=== PATIENT | male | born 1940 | race Caucasian/White ===

== ENCOUNTER → 2023-12-09 11:50 | Outpatient (REF) | payer MEDICARE, OTHER, SELFPAY ==
[2023-12-09 12:26] LABS: INR 3.18; PT 32.5 Sec (11.4-14.6)
== END ==
LOC: OLABPV 11:50
PROVIDERS: ATTENDING PHYSICIAN Internal Medicine
DX: Z79.01 Long term (current) use of anticoagulants (principal)
CPT/HCPCS: 36415; 85610

== ENCOUNTER → 2023-12-16 09:25 | Outpatient (REF) | payer MEDICARE, OTHER, SELFPAY ==
[2023-12-16 11:04] LABS: INR 4.27; PT 41.1 Sec (11.4-14.6)
== END ==
LOC: OLABPV 09:25
PROVIDERS: ATTENDING PHYSICIAN Internal Medicine
DX: Z79.01 Long term (current) use of anticoagulants (principal)
CPT/HCPCS: 36415; 85610

== ENCOUNTER → 2023-12-27 11:16 | Outpatient (REF) | payer MEDICARE, OTHER, SELFPAY ==
[2023-12-27 11:33] LABS: PT 31.1 Sec (11.4-14.6)
== END ==
LOC: OLABPV 11:16
PROVIDERS: ATTENDING PHYSICIAN Internal Medicine
DX: D68.61 Antiphospholipid syndrome (principal); I48.91 Unspecified atrial fibrillation
CPT/HCPCS: 36415; 85610

== ENCOUNTER → 2024-01-17 10:54 | Outpatient (REF) | payer MEDICARE, OTHER, SELFPAY ==
[2024-01-17 12:01] LABS: INR 3.36
== END ==
LOC: OLABPV 10:54
PROVIDERS: ATTENDING PHYSICIAN Internal Medicine
DX: D68.61 Antiphospholipid syndrome (principal)
CPT/HCPCS: 36415; 85610

== ENCOUNTER → 2024-01-24 10:23 | Outpatient (REF) | payer MEDICARE, OTHER, SELFPAY ==
[2024-01-24 12:08] LABS: INR 2.51
== END ==
LOC: OLABPV 10:23
PROVIDERS: ATTENDING PHYSICIAN Internal Medicine
DX: Z79.01 Long term (current) use of anticoagulants (principal)
CPT/HCPCS: 36415; 85610

== ENCOUNTER 2024-02-03 12:19 | Inpatient (IN) | payer MEDICARE, OTHER, SELFPAY ==
[2024-01-31 10:46] VITALS: BP 140/75
--- NOTE | 2024-01-31 11:51 | ED.GENMED ---
History of Present Illness
General
Chief Complaint: Rectal Bleeding
Source: patient
Time Seen by Provider: 01/31/24 11:35
Travel History
Have you had any contact with someone who has COVID-19?: No
Do you have any symptoms of coronavirus? Fever > 100 degrees, chills, cough, shortness of breath, sore throat, loss of taste or smell, muscle aches, or headache?: No
History of Present Illness
History of Present Illness:
84-year-old male with past medical history of spinal cord CVA, atrial fibrillation, hypertension, antiphospholipid syndrome presenting to the emergency department for evaluation of rectal bleeding that he states started over the last 2 to 3 days,
worse this morning prompting him to come to the ER for further evaluation. Patient states he is not in any pain and is denying any chest pain, shortness of breath, palpitations, exertional dyspnea although due to his paralysis notes he is not able
to ambulate very well. Last colonoscopy was in 2015 and patient does not believe there is any significant abnormalities on this. Based off chart review patient did have both internal and external hemorrhoids noted. Patient's last INR check was
last on and states this was 2.5. Notes that before that last check it was much elevated at greater than 3. Patient has no other concerns at this time.
Past History
Past History
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
ED Past Surgical History: Cardiac (PTCA with stent) and Urological (Radical prostatectomy)
Social History
Tobacco: Non-smoker
Alcohol: None
Drug: None
Personal:
Living: with family
Employment: Retired
Family History
Family History: Hypertension
Review of Systems
Review of Systems
All Other Systems: ROS reviewed and negative except as documented in HPI and ROS
Phy Exam
Physical Exam
Physical Exam:
GENERAL: Alert , in no apparent distress, smiling and pleasant chest x-ray
EYE: clear conjunctiva b/l
HEAD: NCAT
ENT: o/p clr, mmm.
CARDIAC: Regular rate and rhythm .
LUNGS: Clear breath sounds bilaterally, no acute respiratory distress, no wheezes/rales/rhonchi
ABDOMEN: Soft, without focal tenderness, no r/g, no cvat
Rectal exam: Chaperoned by ED ADRIA [place]: Patient had dark clots around the rectal opening with thrombosed external hemorrhoids. Stool is intermixed light and dark red
NEUROLOGICAL: Alert and oriented
SKIN: Warm and dry, skin intact.
MUSCULOSKELETAL: No edema, well perfused.
PSYCH: Normal and appropriate interaction.
Scores
Heart Failure Risk
Heart Failure Risk Score: Not Applicable
Heart Score for Chest Pain Patients
STEMI patient?: Not applicable
Withdrawal Assessment of Alcohol
Withdrawal Assessment Completed?: Not applicable
Course
Orders/Labs/Results
Orders:
Orders
01/31/24 11:54
Type+Screen Urgent
Complete Blood Count/With Diff Urgent
Comprehensive Metabolic Panel Urgent
PTT Urgent
Prothrombin Time Urgent
Abnormal Lab Results
01/31/24
11:54
RBC 4.28 L 10^6/uL
(4.70-6.10)
Hgb 12.3 L g/dL
(13.0-18.0)
Hct 36.4 L %
(39.0-52.0)
RDW 15.3 H %
(11.5-14.5)
Absolute Lymphs (auto) 0.9 L 10^3/uL
(1.2-3.4)
Lymphocytes % 14.2 L %
(20.5-51.1)
PT 29.3 H Sec
(11.4-14.6)
APTT 38.3 H Sec
(23.4-35.0)
BUN 23 H mg/dl
(9-20)
Glucose 100 H mg/dl
(70-99)
01/31/24 11:54
01/31/24 11:54
Vital Signs
Initial and Last Documented VS:
Initial Vital Signs
Temp Pulse Resp BP Pulse Ox
97.4 F 79 20 140/75 98
01/31/24 10:46 01/31/24 10:46 01/31/24 10:46 01/31/24 10:46 01/31/24 10:46
Last Documented Vital Signs
Temp Pulse Resp BP Pulse Ox
97.4 F 79 24 147/103 99
01/31/24 10:46 01/31/24 12:00 01/31/24 12:00 01/31/24 12:00 01/31/24 11:45
MDM/Problems Addressed
Differential Diagnosis Includes:
Hemorrhoidal bleeding, diverticular bleed, less concern for an upper GI bleed, anemia
MDM/Problems Addressed:
84-year-old male present emergency department for evaluation of 2 to 3 days of rectal bleeding. Symptoms and presentation seems to be most consistent with a lower GI source and possibly even related to hemorrhoidal bleeding. Patient's last
colonoscopy was in 2015 and the only abnormality seen were internal and external nonbleeding hemorrhoids. He is hemodynamically stable and without any other concerns at this time. will check labs and continuously monitor. Will discuss case with GI
given patient's increased risk for anemia and worsening bleeding due to him being anticoagulated on Coumadin for multiple risk factors
Chronic conditions affecting care: Neurological disorder
*Pulse Oximetry
Patient hypoxic: no
*Grounds Caretaker Interpretation
Rate: normal
Rhythm: sinus
*Critical Care Note
Total Time (30-74mins, 75-104mins- exclusive of procedures): Not Applicable
Data Reviewed
Review of Other/Old Records Reveals: Labs, Records and Testing
Source: patient and records
Patient Management
Discussion with other providers: Hospitalist and Roofing Layer
Escalation/DeEscalation of care consider admission/obs:
Patient's labs show a hemoglobin of 12.3 which appears to be right around patient's baseline. Electrolytes are within normal limits and his vitals remained normal. I do have concerns though given patient's age as well as his risk factors including
use of Coumadin with need based off of his medical history including CVA, A-fib and antiphospholipid syndrome. Due to these risk factors I think it would be best for patient to be monitored repeat labs and be seen by GI. I notified GI who will
consult on the patient and hospitalist team accepts for continued evaluation and treatment.
ED Attending Note
-
Portions of this chart may have been created with voice recognition software.� Occasional wrong word or��sound alike� substitutions may have occurred due to the inherent limitations of voice recognition software.
Discharge Plan
Departure
Patient Disposition: Admit
Date of Disposition: 01/31/24
Time of Disposition: 12:35
Presentation/result/management discussed w/ accepting MD/DO: Hospitalist
Discharge Problem:
Acute GI bleeding
Prescriptions:
No Action
aspirin 81 MG tablet,delayed release (DR/EC)
81 mg PO DAILY
atorvastatin 40 MG tablet
40 mg PO HS
therapeutic multivitamin Tablet
1 tab PO DAILY
methenamine hippurate 1 gram Tablet
1 g PO BID
omeprazole 20 mg Capsule,Delayed Release(Dr/Ec)
20 mg PO Q48H@0800
metoprolol succinate 25 mg Tablet Extended Release 24 Hr
25 mg PO DAILY
irbesartan 150 mg Tablet
150 mg PO BID
warfarin 5 mg Tablet
5 mg PO SUMOTUTHFRSA@2200
warfarin 5 mg Tablet
7.5 mg PO WE@2200
Pepcid AC
1 tab PO Q48H@0800
Patient Comments:
01/31/2024, pt. unsure of strength.
Unknown Eye Drops
1 drp RIGHT EYE .TAPER
Patient Comments:
01/31/2024, pt. applies one drop into right eye BID this week; then, starting next week, he will place one drop into right eye daily for a week. Pt. states to get these eye drops from his innersole fitter and instructed to use post-cataract
surgery.
Referrals:
Harsh Becker MD [Family Provider] -
Interventions
Interventions:
*Risk Screen - Suicide Last Done: 01/31/24 10:46
*General Assessment Last Done: 01/31/24 10:46
*Neglect/Abuse Screening Last Done: 01/31/24 10:46
ED- Fall Risk Assessment Last Done: 01/31/24 11:40
CM-Cmidzj-Oobffvuexx Assessment Last Done: 01/31/24 11:40
ED- Cardiac Assessment Last Done: 01/31/24 11:40
ED- Pulmonary Assessment Last Done: 01/31/24 11:40
Discharge Date and Time
Print Language: KYRGYZ
[2024-01-31 12:00] VITALS: BP 147/103
[2024-01-31 12:04] VITALS: BMI 26.2
[2024-01-31 12:04] LABS: % Basophils 0.9 % (0-2); % Eosinophils 1.7 % (0-6); % Immature Granulocytes 0.5 % (0-0.5); % Lymphocytes 14.2 % (20.5-51.1); % Monocytes 9.1 % (1.7-9.3); % Neutrophils 73.6 % (42.2-75.2); Absolute Basophils 0.1 10^3/uL (0-0.2); Absolute Eosinophils 0.1 10^3/uL (0-0.7); Absolute Lymphocytes 0.9 10^3/uL (1.2-3.4); Absolute Monocytes 0.6 10^3/uL (0.1-0.6); Absolute Neutrophils 4.8 10^3/uL (1.4-6.5); Hematocrit 36.4 % (39.0-52.0); Hemoglobin 12.3 g/dL (13.0-18.0); Mean Corp Hgb Conc. 33.8 g/dL (33.0-37.0); Mean Corpuscular Hgb 28.7 pg (27.0-31.0); Mean Platelet Volume 10.4 fL (7.4-10.4); Nucleated Red Blood Cells % 0 % (-); Platelet Count 168 10^3/uL (130-400); Red Blood Cell Count 4.28 10^6/uL (4.70-6.10); Red Cell Dist. Width 15.3 % (11.5-14.5); White Blood Cell Count 6.5 10^3/uL (4.8-10.8)
[2024-01-31 12:14] LABS: INR 2.79; PT 29.3 Sec (11.4-14.6)
[2024-01-31 12:15] LABS: APTT 38.3 Sec (23.4-35.0)
[2024-01-31 12:17] LABS: ALT (SGPT) 33 U/L (0-50); AST (SGOT) 37 U/L (17-59); Alkaline Phosphatase 116 U/L (38-126); Blood Urea Nitrogen 23 mg/dl (9-20); Calcium 9.6 mg/dl (8.4-10.2); Carbon Dioxide 24 mmol/L (22-30); Chloride 106 mmol/L (98-107); Estimated Creatinine Clearance 85 ml/min; Glucose 100 mg/dl (70-99); Potassium 3.9 mmol/L (3.5-5.1); Sodium 138 mmol/L (135-145); Total Bilirubin 0.7 mg/dl (0.2-1.3); Total Protein 6.8 g/dl (6.3-8.2); eGFR > 60.00
--- NOTE | 2024-01-31 12:48 | HPS.HSE ---
Addendum entered and electronically signed by Matt Rodney MD 01/31/24 15:17:
see update note for addendum
Original Note:
Family Physician
-
Family Physician: Harsh Becker
Chief Complaint
-
Rectal bleeding
History of Present Illness
84-year-old male complaining of rectal bleeding over the last 2 to 3 days. He reports the bleeding was worse this a.m. he states he had a hard stool on Tuesday. He does not have any sensation in the rectal area due to prior stroke and normally does
a toileting schedule with alternating digital disimpaction. He is on Coumadin and aspirin with history of A-fib and antiphospholipid antibody. He denies fever, chills, chest pain palpitations, shortness of breath, cough, abdominal pain, nausea,
vomiting, urinary symptoms. In the ER he was noted to have dark clots around rectal opening with thrombosed external hemorrhoids stool intermixed light and dark red. His last colonoscopy was 2015 and negative. He has history of spinal artery
occlusion with CVA and lower extremity paralysis is able to dorsiflex left foot can stand to pivot on both feet with walker to wheelchair, CAD status post PTCA with stent, prostate cancer/radical prostatectomy, HTN, HLD, MD, cataract extraction
right eye 01/12/2024, left eye 12/29/2023
Medical History
Past Medical History
Past Medical History: Reports Other
Additional Past Medical History:
spinal artery occlusion with CVA and lower extremity paralysis is able to dorsiflex left foot can stand to pivot on both feet with walker to wheelchair 12/20/2009
CAD status post PTCA with stent October 2006,
prostate cancer/radical prostatectomy
HTN
HLD,
MD
cataract extraction right eye 01/12/2024, left eye 12/29/2023
Past Surgical History: Reports Other
Additional Past Surgical History:
cataract extraction right eye 01/12/2024, left eye 12/29/2023
Radical prostatectomy secondary to prostate cancer
Social History
Tobacco: Non-smoker
Alcohol: Occasional (3 to 4 glasses of wine a week)
Drug: None
Personal:
Living: With Family ( Carley Alba)
Employment: Retired
Family History
Family History: Other (Mother age 98 old age, father CVA)
Allergies / Home Medications
Allergies reflects when Allergies were last updated in [facility].
Home Medications with original date entered in [facility]
Allergy/Medication List:
Allergies
Allergy/AdvReac Type Severity Reaction Status Date / Time
amoxicillin [From Augmentin] Allergy Rash Verified 01/31/24 10:50
clavulanic acid Allergy Rash Verified 01/31/24 10:50
[From Augmentin]
Sulfa (Sulfonamide Allergy Rash Verified 01/31/24 10:50
Antibiotics)
Home Medications
aspirin 81 mg tablet,delayed release 81 mg PO DAILY Blood Clot Prevention/Tx 09/23/12
atorvastatin 40 mg tablet 40 mg PO HS High Cholesterol 08/20/20
irbesartan 150 mg tablet 150 mg PO BID High Cholesterol 08/26/23
methenamine hippurate 1 gram tablet 1 g PO BID Prevent UTI 08/26/23
metoprolol succinate 25 mg tablet,extended release 24 hr 25 mg PO DAILY Blood Pressure 08/26/23
omeprazole 20 mg capsule,delayed release 20 mg PO Q48H@0800 GERD 08/26/23
therapeutic multivitamin 1 tab PO DAILY Supplement 08/26/23
Pepcid AC 1 tab PO Q48H@0800 01/31/24
Unknown Eye Drops 1 drp RIGHT EYE .TAPER 01/31/24
warfarin 5 mg tablet 5 mg PO SUMOTUTHFRSA@0 01/31/24
warfarin 5 mg tablet 7.5 mg PO WE@219901/31/24
Review of Systems
-
History Source: Patient
A 12 point ROS was completed and negative except as noted: Yes
Constitutional: Denies Fever, Fatigue or Chills
EENT: Denies Sore Throat or Runny Nose
Respiratory: Denies Cough or Trouble Breathing
Cardiac: Denies Chest Pain, Palpitations or Syncope
Abdomen/GI: Reports Bloody Stools; Denies Abdominal Pain, Nausea, Vomiting, Diarrhea, Constipated or Black Stools
: Denies Dysuria, Frequency, Flank Pain, Incontinence or Difficulty Voiding
Musculoskeletal: Reports Edema (+1 pedal bilateral); Denies Joint Pain
Skin: Denies Itching or Rash
Neurological: Reports Other (Chronic lower extremity paralysis from prior spinal stroke, is able to dorsiflex left foot but not right); Denies Dizzy, Headache or Weakness
Endocrine: Reports No Symptoms
Hematologic/Lymphatic: Reports No Symptoms
Psych: Reports Calm
Physical Exam
Vital Signs
Vital Signs
Temp Pulse Resp BP Pulse Ox
97.4 F 79 24 147/103 99
01/31/24 10:46 01/31/24 12:00 01/31/24 12:00 01/31/24 12:00 01/31/24 11:45
Physical Exam
General: No Apparent Distress, Comfortable and Conversant; No Pain, Fever or Chills
HEENT: NormoCephalic, Anicteric, Moist mucous membranes, PERRLA, [place] Conjunctivae and No Ptosis
Respiratory: Clear; No Wheezes, Rales or Rhonchi
Cardiac: S1/S2, Regular Rhythm and Murmur (2/6 systolic); No Rub, Gallop or Peripheral Edema
Breast: Deferred by me
GI: Soft, Non Tender, Non Distended, Normal Bowel Sounds and No Hepatosplenomegaly
Rectal: Other (ER physician rectal eval thrombosed external hemorrhoids, stool with mixed blood)
Genito-urinary: Deferred by me
Musculoskeletal: No Clubbing, No Cyanosis, Edema, Left Lower Extremity (+1 pedal), Edema, Right Lower Extremity (+1 pedal) and Other (Chronic lower extremity paralysis from prior spinal stroke, is able to dorsiflex left foot but not right); No
Edema, Left Upper Extremity or Edema, Right Upper Extremity
Skin: Warm and Dry; No Rash or Jaundice
Neuro: AO x 3, Cranial Nerves Intact and Other (Chronic lower extremity paralysis from prior spinal stroke, is able to dorsiflex left foot but not right); No Slurred Speech, Facial Droop or Tremors
Psych: Calm
Laboratory Results
-
01/31/24 11:54
01/31/24 11:54
Laboratory Results
PT 29.3 Sec (11.4-14.6) H 01/31/24 11:54
INR 2.79 01/31/24 11:54
APTT 38.3 Sec (23.4-35.0) H 01/31/24 11:54
Total Bilirubin 0.7 mg/dl (0.2-1.3) 01/31/24 11:54
AST 37 U/L (17-59) 01/31/24 11:54
ALT 33 U/L (0-50) 01/31/24 11:54
Alkaline Phosphatase 116 U/L (38-126) 01/31/24 11:54
Impression/Plan
-
Impression/plan:
OBS telemetry
#Rectal bleeding on Coumadin/likely secondary to thrombosed external hemorrhoids prior constipation
#No rectal sensation is on toileting schedule and has to digitally disimpact due to history of spinal cord stroke with paralysis
ER exam dark clots rectal opening with thrombosed external hemorrhoids
Hgb 12.3
-Continue aspirin 81 mg daily
-Hold Coumadin until GI eval
-GI to eval
#A-fib paroxysmal Dx 09/05/2023
-Hold Coumadin
-Continue metoprolol succinate 25 mg daily
INR 2.79
-Follows with [facility]
2D echo 08/26/2023: EF 65 to 70%, mild to moderate MR, trace AR, mild TR
#Hx antiphospholipid antibody
-Hold Coumadin due to rectal bleeding until GI eval
-Continue aspirin 81 mg daily
#GERD
-Continue omeprazole 20 mg every 48 H, Pepcid 1 tab p.o. every 48 hours
#HTN�benign
147/103 > 158/83
-Continue irbesartan 150 mg p.o. twice daily, metoprolol succinate 25 mg daily
#Spinal artery occlusion with CVA and lower extremity paralysis Dx 12/20/2009
-is able to dorsiflex left foot can stand to pivot on both feet with walker to wheelchair
#CAD
#PTCA with stent October 2006
Continue statin, BP control
Hold current aspirin due to rectal bleeding
#HLD
Continue atorvastatin 40 mg at bedtime
#Prostate cancer with radical prostatectomy
#Hx UTIs
Continue Hiprex 1 g p.o. twice daily
#cataract extraction right eye 01/12/2024, left eye 12/29/2023
DVT prophylaxis
SCDs
Full code
[2024-01-31 13:00] VITALS: BP 156/97
--- NOTE | 2024-01-31 13:42 | CON.GI ---
Consultation
-
Date/Time Consultation Requested: 01/31/24 12:15 PM
Date/Time Consultation Performed: 01/31/24 1:45 PM
Requesting Provider: Derrell Stokes
Performing Provider: Kelsey Leonardo
Reason for Consultation: Rectal bleleding
Medical History
Chief Complaint / HPI
Chief Complaint: Rectal bleeding
History of Present Illness:
Maurice Monroe is an 84 y.o. gentleman with pmhx spinal artery occlusion and CVA resulting in LE paralysis c/b neurogenic bowel, antiphospholipid syndrome on coumadin, Afib, CAD s/p PTCA w/ stent, prostate ca s/p radical prostatectomy, HTN, HLD,
recent b/l cataract extraction who presents with rectal bleeding over the last 2-3 days. Patient denies constipation at baseline, moves his bowels about 2-3x per day, but does this by digital disimpaction. He denies any stool softeners or laxatives.
He has never had rectal bleeding in the past. Admits to hard stool only on Tuesday, typically normal form/consistency.. Last colonoscopy was in 2016, internal and external hemorrhoids, otherwise normal. Reports stool mixed with dark red blood, notes
it worsened since this morning, which is what prompted him to come in for evaluation. He is currently on coumadin and baby ASA. In ER, TED with thrombosed external hemorrhoid and dark clots in rectal vault. Hemoglobin 12.3, MCV 85, Plt 168, INR 2.7,
Cr.0.7. No iron panel obtained. He denies any regular use of NSAIDs. Denies family history of CRC or advanced polyps. Last dose of coumadin was yesterday evening.
Past Medical History
Past Medical History: Other (As per HPI.)
Past Surgical History: Other (As per HPI.)
Social History
Tobacco: Non-Smoker
Alcohol: Occasional
Drug: None
Personal:
Living: With Family
Employment: Retired
Family History
Family History: Reviewed & Not Pertinent and Other
Allergies / Home Medications
Allergy/AdvReac Type Severity Reaction Status Date / Time
amoxicillin [From Augmentin] Allergy Rash Verified 01/31/24 10:50
clavulanic acid Allergy Rash Verified 01/31/24 10:50
[From Augmentin]
Sulfa (Sulfonamide Allergy Rash Verified 01/31/24 10:50
Antibiotics)
�Medication �Instructions �Recorded
aspirin 81 mg tablet,delayed 81 mg PO DAILY Blood Clot 09/23/12
release Prevention/Tx
atorvastatin 40 mg tablet 40 mg PO HS High Cholesterol 08/20/20
irbesartan 150 mg tablet 150 mg PO BID High Cholesterol 08/26/23
methenamine hippurate 1 gram tablet 1 g PO BID Prevent UTI 08/26/23
metoprolol succinate 25 mg 25 mg PO DAILY Blood Pressure 08/26/23
tablet,extended release 24 hr
omeprazole 20 mg capsule,delayed 20 mg PO Q48H@0800 GERD 08/26/23
release
therapeutic multivitamin 1 tab PO DAILY Supplement 08/26/23
Pepcid AC 1 tab PO Q48H@0800 01/31/24
Unknown Eye Drops 1 drp RIGHT EYE .TAPER 01/31/24
warfarin 5 mg tablet 5 mg PO SUMOTUTHFRSA@0 01/31/24
warfarin 5 mg tablet 7.5 mg PO WE@219901/31/24
Review of Systems
-
History Source: Patient
All other systems: A 12 pt ROS was Negative except as stated above in HPI
Vital Signs
Temp Pulse Resp BP Pulse Ox
97.4 F 93 20 156/97 100
01/31/24 10:46 01/31/24 13:15 01/31/24 13:15 01/31/24 13:00 01/31/24 13:15
Physical Exam
Exam
General: Well Developed, Well Nourished and No Apparent Distress
HEENT: Normocephalic, Anicteric and Atraumatic
Respiratory: Clear and Non Labored Respirations
Cardiac: S1/S2 and Regular Rhythm
GI: Soft, Non Tender, Non Distended and Normal Bowel Sounds
Rectal: Other (Large external hemorrhoids, brown stool mixed with red blood and clots)
Genito-urinary: No Costovertebral Tender
Musculoskeletal: Edema (+lower extremity edema)
Skin: Warm
Neuro: Awake, AO x 3 and Nonfocal/Grossly Intact
Hematologic/Lymphatic: No Lymphadenopathy
Psych: Calm
Results
WBC 6.5 10^3/uL (4.8-10.8) 01/31/24 11:54
Hgb 12.3 g/dL (13.0-18.0) L 01/31/24 11:54
Hct 36.4 % (39.0-52.0) L 01/31/24 11:54
MCV 85.0 fL (80.0-94.0) 01/31/24 11:54
Plt Count 168 10^3/uL (130-400) 01/31/24 11:54
Absolute Neuts (auto) 4.8 10^3/uL (1.4-6.5) 01/31/24 11:54
PT 29.3 Sec (11.4-14.6) H 01/31/24 11:54
INR 2.79 01/31/24 11:54
APTT 38.3 Sec (23.4-35.0) H 01/31/24 11:54
Sodium 138 mmol/L (135-145) 01/31/24 11:54
Potassium 3.9 mmol/L (3.5-5.1) 01/31/24 11:54
Chloride 106 mmol/L (98-107) 01/31/24 11:54
Carbon Dioxide 24 mmol/L (22-30) 01/31/24 11:54
BUN 23 mg/dl (9-20) H 01/31/24 11:54
Creatinine 0.7 mg/dL (0.7-1.3) 01/31/24 11:54
Calcium 9.6 mg/dl (8.4-10.2) 01/31/24 11:54
Total Bilirubin 0.7 mg/dl (0.2-1.3) 01/31/24 11:54
AST 37 U/L (17-59) 01/31/24 11:54
ALT 33 U/L (0-50) 01/31/24 11:54
Alkaline Phosphatase 116 U/L (38-126) 01/31/24 11:54
Diagnostic Image Results:
Prior GI Procedures:
EGD:
Colonoscopy:
Assessment / Plan
-
Mr. Monroe is an 84 y.o. 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
cataract extraction who presents with rectal bleeding. His hemoglobin is at his baseline and he is hemodynamically stable. Rectal exam demonstrates +external hemorrhoids, large amount of brown stool mixed with clots in the rectal vault.I suspect
that his bleeding is 2/2 benign anorectal pathology, such as hemorrhoids vs. stercoral ulcer in setting of constipation vs. radiation proctitis vs. diverticulosis vs. AVMs vs. polyp vs. malignancy vs. less likely ischemic. Despite patient reporting
normal daily BMs, I feel he likely has some degree of overflow and is constipated at baseline. He frequently disimpacts himself, and more than likely, is causing some irritation. His anticoagulation is certainly contributing, though, INR is
therapeutic, he admits to issues with labile INR, noted to be >4.0 in early December.
I would like to monitor him overnight to see what his hemoglobin is in the morning as well as how much blood he passes in the next 24 hours. Recommend giving a dose of miralax tonight. Keep on clear liquids, NPO past midnight. Will examine patient
in AM and if INR <2.0 can proceed with more limited flex sig. If INR still above 2.0, will plan to prep for full colonoscopy on /when INR <2.0. We did discuss that having him f/u as an outpatient would prove difficult due to his limited
mobility.
Data Reviewed
-
Old Records: Reviewed
-
-
Thank you for consultation and allowing me to participate in the patient's care. Please call the education and training manager GI physician during the after hours with any questions or concerns.
--- NOTE | 2024-01-31 15:17 | W.PN.UPDATE ---
Update Note
Progress Note Update
I saw and examined the patient.
The STUDIO MODEL Marci's note was reviewed and I agree with the note.
Comment: 84 y/o M hx of Coumadin therapy for hx of spinal artery occlusion resulting in, antiphospholipid syndrome, AFib presents with rectal bleeding over 2-3 days. He admits to hard stool on Tuesday. At baseline, no constipation and has 2-3
BMs/daily (via digital disimpaction). In ER, hemodynamically stable and Hb stable. Evaluated by GI and plan for clears with NPO p MN for possible GI procedure pending INR. We will hold Coumadin, may need FFP to reverse tomorrow; would hold off
Vitamin K with history.
Physical Exam
General: No Apparent Distress, Comfortable and Conversant; No Pain, Fever or Chills
HEENT: Normocephalic, Anicteric, Moist mucous membranes, PERRLA, [place] Conjunctivae and No Ptosis
Respiratory: Clear; No Wheezes, Rales or Rhonchi
Cardiac: S1/S2, Regular Rhythm and Murmur (2/6 systolic); No Rub, Gallop or Peripheral Edema
Breast: Deferred by me
GI: Soft, Non Tender, Non Distended, Normal Bowel Sounds and No Hepatosplenomegaly
Rectal: Other (ER physician rectal eval thrombosed external hemorrhoids, stool with mixed blood)
Genito-urinary: Deferred by me
Musculoskeletal: No Clubbing, No Cyanosis, Edema, Left Lower Extremity (+1 pedal), Edema, Right Lower Extremity (+1 pedal) and Other (Chronic lower extremity paralysis from prior spinal stroke, is able to dorsiflex left foot but not right); No
Edema, Left Upper Extremity or Edema, Right Upper Extremity
Skin: Warm and Dry; No Rash or Jaundice
Neuro: AO x 3, Cranial Nerves Intact and Other (Chronic lower extremity paralysis from prior spinal stroke, is able to dorsiflex left foot but not right); No Slurred Speech, Facial Droop or Tremors
Psych: Calm
Assessment:
Rectal bleeding, exacerbated by Coumadin
- dark clots and concern for hemorrhoids
- hold Coumadin; f/u INRs
- GI following
- clears; NPO p MN for GI intervention pending INR
- check type/screen
Chronic Anemia
Parox A-fib
- hold Coumadin; f/u INRs
- continue BB
- followed by [facility]
Hx antiphospholipid antibody
- hold Coumadin; f/u INRs
- continue aspirin 81 mg daily
GERD
- continue PPI/H2 blockers
Essential HTN
- continue BB/ARB
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
- is able to dorsiflex left foot can stand to pivot on both feet with walker to wheelchair
CAD
PTCA with stent October 2006
- Continue statin, BP control
- continue ASA
HLD
- continue statin
Prostate cancer with radical prostatectomy
Hx UTIs
- continue Hiprex 1 g p.o. twice daily
cataract extraction right eye 01/12/2024, left eye 12/29/2023
DVT prophylaxis: SCDS
Code: Full
--- NOTE | 2024-01-31 15:30 | W.PN.UPDATE ---
Update Note
Progress Note Update
Billing update
[2024-01-31 16:21] VITALS: BMI 24.8
[2024-01-31 16:42] VITALS: BMI 24.8
--- NOTE | 2024-01-31 17:24 | PTCARENOTE ---
Received patient from ED via stretcher. AAOx3, stood and pivot with assistance x2 to bed. Assessed and oriented to room. residential monitor reading Afib. Call wolfe in close reach.
[2024-01-31 18:26] VITALS: BP 163/108
[2024-01-31 19:10] VITALS: BP 153/103
[2024-01-31] MEDS: NON-FORMULARY ITEM 1 DROP RIGHT EYE (20:43)
[2024-01-31] MEDS: HIPREX 1 GRAM PO (20:44)
[2024-01-31] MEDS: LIPITOR 40 MG PO (20:44)
[2024-01-31] MEDS: AVAPRO 150 MG PO (20:44)
[2024-01-31 23:10] VITALS: BP 167/112
[2024-02-01] VITALS (9 sets, daily range): BP systolic 143–171; BP diastolic 86–115; PULSE 90; O2SAT 95
--- NOTE | 2024-02-01 04:53 | DOWNTIME ---
There was a [employer] Downtime on 02/01/2024 from 0100 to 02/01/2024 at 0439. Downtime documentation of patient's care, including medication administrations, has been reconciled in the electronic record per guidelines. Refer to the
patient's paper chart under the miscellaneous tab to see printed paper medication records and downtime forms.
[2024-02-01 07:57] LABS: % Basophils 0.6 % (0-2); % Eosinophils 2.9 % (0-6); % Immature Granulocytes 0.5 % (0-0.5); % Lymphocytes 20.5 % (20.5-51.1); % Monocytes 12.3 % (1.7-9.3); % Neutrophils 63.2 % (42.2-75.2); Absolute Eosinophils 0.2 10^3/uL (0-0.7); Absolute Lymphocytes 1.3 10^3/uL (1.2-3.4); Absolute Monocytes 0.8 10^3/uL (0.1-0.6); Hematocrit 36.5 % (39.0-52.0); Hemoglobin 12.2 g/dL (13.0-18.0); Mean Corp Hgb Conc. 33.4 g/dL (33.0-37.0); Mean Corpuscular Hgb 28.4 pg (27.0-31.0); Mean Corpuscular Volume 85.1 fL (80.0-94.0); Mean Platelet Volume 10.6 fL (7.4-10.4); Nucleated Red Blood Cells % 0 % (-); Platelet Count 167 10^3/uL (130-400); Red Blood Cell Count 4.29 10^6/uL (4.70-6.10); Red Cell Dist. Width 15.3 % (11.5-14.5); White Blood Cell Count 6.3 10^3/uL (4.8-10.8)
[2024-02-01] MEDS: PEPCID 40 MG PO (08:08)
[2024-02-01] MEDS: PROTONIX 40 MG PO (08:08)
[2024-02-01] MEDS: AVAPRO 150 MG PO ×2 (08:08→20:05)
[2024-02-01] MEDS: HIPREX 1 GRAM PO ×2 (08:08→20:05)
[2024-02-01] MEDS: NON-FORMULARY ITEM 1 DROP RIGHT EYE ×2 (08:09→20:06)
[2024-02-01] MEDS: TOPROL XL 25 MG PO (08:09)
[2024-02-01] MEDS: ASPIR LOW (ENTERIC COATED) 81 MG PO (08:09)
[2024-02-01] MEDS: THERAGRAN 1 TABLET PO (08:09)
[2024-02-01 08:21] LABS: INR 2.35
[2024-02-01 09:16] LABS: Blood Urea Nitrogen 18 mg/dl (9-20); Calcium 9.5 mg/dl (8.4-10.2); Carbon Dioxide 28 mmol/L (22-30); Chloride 105 mmol/L (98-107); Estimated Creatinine Clearance 74 ml/min; Glucose 90 mg/dl (70-99); Potassium 4.6 mmol/L (3.5-5.1); Sodium 137 mmol/L (135-145); eGFR > 60.00
--- NOTE | 2024-02-01 09:38 | W.PN.GI.CBS2 ---
Today's Communication / Plan
-
Plan for Colonoscopy tomorrow.
Assessment / Plan
-
Mr. Monroe is an 84 y.o. 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
cataract extraction who presents with rectal bleeding. His hemoglobin is at his baseline and he is hemodynamically stable. Rectal exam demonstrates +external hemorrhoids, large amount of brown stool mixed with clots in the rectal vault.I suspect
that his bleeding is 2/2 benign anorectal pathology, such as hemorrhoids vs. stercoral ulcer in setting of constipation vs. radiation proctitis vs. diverticulosis vs. AVMs vs. polyp vs. malignancy vs. less likely ischemic. Despite patient reporting
normal daily BMs, I feel he likely has some degree of overflow and is constipated at baseline. He frequently disimpacts himself, and more than likely, is causing some irritation. His anticoagulation is certainly contributing, though, INR is
therapeutic, he admits to issues with labile INR, noted to be >4.0 in early December.
He remains hemodynamically stable, and hemoglobin remains stable as well. INR now 2.35. Given he has not had a fully colonoscopy in 8 years and maroon colored stool, would prefer full colonoscopy for assessment, as opposed to more limited flexible
sigmoidoscopy. Discussed this with patient and he is agreeable to proceed with full colonoscopy tomorrow. Discussed with Dr. Rodney, will advance to clear liquids and place orders for bowel prep.
Continue to hold coumadin, can bridge to Lovenox or heparin gtt, if needed.
Subjective
Subjective
Date of Service: February 01, 2024
Adam was seen today in follow-up, one bloody BM overnight. Otherwise, reports feeling well. His vital signs remain stable. AM hemoglobin 12.2, INR 2.35 today. After discussing with patient, he is agreeable to pursuing full colonoscopy tomorrow.
Objective
Data Reviewed
Laboratory Data:
Laboratory Results
02/01/24 06:52
02/01/24 06:52
Laboratory Results
PT 26.0 Sec (11.4-14.6) H 02/01/24 06:52
INR 2.35 02/01/24 06:52
APTT 38.3 Sec (23.4-35.0) H 01/31/24 11:54
Total Bilirubin 0.7 mg/dl (0.2-1.3) 01/31/24 11:54
AST 37 U/L (17-59) 01/31/24 11:54
ALT 33 U/L (0-50) 01/31/24 11:54
Alkaline Phosphatase 116 U/L (38-126) 01/31/24 11:54
Vital Signs and I&O:
Vital Signs
Temp Pulse Resp BP Pulse Ox
97.9 F 94 18 171/101 98
02/01/24 07:30 02/01/24 08:08 02/01/24 07:30 02/01/24 08:08 02/01/24 07:30
I&O
01/31/24 02/01/24 02/02/24
06:59 06:59 06:59
Intake Total 480 / 480
Output Total 1475 / 1475
Balance -995 / -995
Physical Exam
Physical Exam
HEENT: Anicteric and Moist mucous membranes
Cardiology: Normal Sinus Rhythm, S1 and S2
Pulmonary: Clear
GI: Soft, Non Distended, Non Tender and Normal Bowel Sounds
Extremities: Edema
Neuro: Other (LE paralysis )
--- NOTE | 2024-02-01 11:37 | W.PN.HOSP.TC ---
Today's Communication/Plan
-
hold Coumadin; follow INRs
clears and bowel prep for colonoscopy pending INR; may need FFP pending INR
d/w GI team
Assessment / Plan
Assessment / Plan
Assessment:
Rectal bleeding, exacerbated by Coumadin
- dark clots and concern for hemorrhoids
- hold Coumadin; f/u INRs (today is 2.35)
- type/screen and consented. May need FFP pending AM INR
- GI following
- clears; NPO p MN for Colonoscopy 02/01
Chronic Anemia
- for now stable with lower GI bleed
Parox A-fib
- hold Coumadin; f/u INRs
- continue BB
- followed by [facility] cardiology
Hx antiphospholipid antibody
- hold Coumadin; f/u INRs
- continue aspirin 81 mg daily
GERD
- continue PPI/H2 blockers
Essential HTN
- continue BB/ARB
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
- is able to dorsiflex left foot can stand to pivot on both feet with walker to wheelchair
CAD
PTCA with stent October 2006
- Continue statin, BP control
- continue ASA
HLD
- continue statin
Prostate cancer with radical prostatectomy
Hx UTIs
- continue Hiprex 1 g p.o. twice daily
cataract extraction right eye 01/12/2024, left eye 12/29/2023
DVT prophylaxis: SCDS
Code: Full
Anticipated Discharge: 24 - 48 hours
Subjective/Interval History
-
Date of Service: February 01, 2024
one bloody BM overnight but Hb stable and vitals stable
INR is 2.35 with Coumadin held
he offers no new complaints
agrees with full colonoscopy tomorrow
Objective Data
-
Labs:
Laboratory Results
02/01/24
06:52
WBC 6.3
Hgb 12.2 L
Hct 36.5 L
Plt Count 167
PT 26.0 H
INR 2.35
Sodium 137
Potassium 4.6
Chloride 105
Carbon Dioxide 28
BUN 18
Creatinine 0.8
Glucose 90
Calcium 9.5
Vital Signs:
Vital Signs
Temp Pulse Resp BP Pulse Ox
98.0 F 83 18 143/99 97
02/01/24 11:11 02/01/24 11:11 02/01/24 11:11 02/01/24 11:11 02/01/24 11:11
I&O
01/31/24 02/01/24 02/02/24
06:59 06:59 06:59
Intake Total 480 / 480
Output Total 1475 / 1475
Balance -995 / -995
Physical Exam
-
General: No Apparent Distress
HEENT: Normocephalic and Atraumatic
Respiratory: Clear to Auscultation; Negative Wheezes or Rales
Cardiac: Regular Rhythm and S1/S2
GI: Soft
Genito-urinary: No Costovertebral Tender
Musculoskeletal: No Edema
Neuro: AO x 3
Hematologic / Lymphatic: No Lymphadenopathy
Psych: Calm
Data Reviewed
-
Total Time Spent with Patient (in minutes): 42
Labs: Labs Reviewed by me
--- NOTE | 2024-02-01 16:21 | CM ---
Alert awake oriented patient who lives at [facility] with his w.He is independent in driving and all activities of daily living.He uses walker wheel chair and scooter. He said he can not walk on own. He offered VN
he declined. VEGA letter given explained signed copy on chart.
[facility] hx
Pharmacy [facility]
PCP Dr Becker
PLAN Home no needs
--- NOTE | 2024-02-01 16:30 | PTCARENOTE ---
patient was received in bed reading his magazine - awake, alert and verbally responsive. patient is able to make his needs known and understands when being spoken too. patient did not have any behavioral/verbal indicators of discomfort or pain.
patient was started on his nulytely trevor. patient was provided a bedside commode to use. fluids encouraged throughout this nurse's shift. patient remains continent of bladder with the use of a condom cath. patient remains in bed at this time with
call wolfe, telephone and television remote within reach
[2024-02-01] MEDS: NULYTELY SOLUTION 4 LITERS PO (16:53)
[2024-02-01] MEDS: LIPITOR 40 MG PO (20:05)
[2024-02-02] VITALS (15 sets, daily range): BP systolic 11–176; BP diastolic 83–112
--- NOTE | 2024-02-02 08:05 | W.PN.HOSP.TC ---
Addendum entered and electronically signed by Wyatt Duenas MD 02/02/24 14:15:
Patient denies any further bleeding. No chest pain or shortness of breath. He recognizes me for the last time I saw him last hospital stay
Original Note:
Today's Communication/Plan
-
Colonoscopy today.
Assessment / Plan
Assessment / Plan
Physical exam:
General: Well Developed, Well Nourished and No Apparent Distress
HEENT: Normocephalic, Atraumatic and Moist Mucous Membranes
Respiratory: Clear to Auscultation; Negative Wheezes, Rales or Rhonchi
Cardiac: Regular Rhythm and S1/S2
GI: Soft, Nontender and Nondistended
Musculoskeletal: No Clubbing, No Cyanosis and No Edema
Neuro: Awake, Alert and Oriented
Psych: Calm
Colonoscopy:
Findings:
Normal TI
1x small polyp in cecum, removed with biopsy forceps
1x small polyp in ascending colon, removed with biopsy forceps. 1x hemostatic clip placed
4 mm sessile polyp in rectum, removed via hot snare
7 mm pedunculated polyp w/ stigmata of recent bleeding in the rectum, removed via hot snare
Abnormal mucosa in the rectum, just proximal to the anal verge, biopsied
GI bleeding likely 2/2 large pedunculated polyp in rectum. No evidence of diverticular disease or AVMs.
Assessment:
Rectal bleeding, exacerbated by Coumadin. Etiology as above.
- dark clots and concern for hemorrhoids
- hold Coumadin; f/u INRs (today is 1.72)
- type/screen and consented.
-Status post colonoscopy today as above
-Continue to hold anticoagulation
-Hemoglobin 11.7 today, recheck in a.m.
-GI following
Chronic Anemia
- for now stable with lower GI bleed
Parox A-fib
- hold Coumadin; f/u INRs
- continue BB
- followed by [facility] cardiology
Hx antiphospholipid antibody
- hold Coumadin; f/u INRs
- continue aspirin 81 mg daily
GERD
- continue PPI/H2 blockers
Essential HTN
- continue BB/ARB
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
- is able to dorsiflex left foot can stand to pivot on both feet with walker to wheelchair
CAD
PTCA with stent October 2006
- Continue statin, BP control
- continue ASA
HLD
- continue statin
Prostate cancer with radical prostatectomy
Hx UTIs
- continue Hiprex 1 g p.o. twice daily
cataract extraction right eye 01/12/2024, left eye 12/29/2023
DVT prophylaxis: SCDS
Code: Full
Anticipated Discharge: 24 - 48 hours
Subjective/Interval History
-
Date of Service: February 02, 2024
Objective Data
-
Labs:
Laboratory Results
02/02/24
06:59
WBC Pending
Hgb Pending
Hct Pending
Plt Count Pending
PT Pending
INR Pending
Sodium Pending
Potassium Pending
Chloride Pending
Carbon Dioxide Pending
BUN Pending
Creatinine Pending
Glucose Pending
Calcium Pending
Vital Signs:
Vital Signs
Temp Pulse Resp BP Pulse Ox
98.1 F 94 18 160/94 99
02/02/24 04:20 02/02/24 04:20 02/02/24 04:20 02/02/24 03:54 02/02/24 04:20
I&O
02/01/24 02/02/24 02/03/24
06:59 06:59 06:59
Intake Total 480 / 480 2099 / 2100
Output Total 1475 / 1475 1750 / 1750
Balance -995 / -995 350 / 350
[2024-02-02 08:28] LABS: Hematocrit 35.4 % (39.0-52.0); Hemoglobin 11.7 g/dL (13.0-18.0); Mean Corp Hgb Conc. 33.1 g/dL (33.0-37.0); Mean Corpuscular Hgb 28.5 pg (27.0-31.0); Mean Corpuscular Volume 86.1 fL (80.0-94.0); Mean Platelet Volume 11.2 fL (7.4-10.4); Platelet Count 150 10^3/uL (130-400); Red Blood Cell Count 4.11 10^6/uL (4.70-6.10); Red Cell Dist. Width 15.1 % (11.5-14.5); White Blood Cell Count 5.8 10^3/uL (4.8-10.8)
[2024-02-02 08:32] LABS: INR 1.72; PT 20.3 Sec (11.4-14.6)
[2024-02-02] MEDS: PEPCID 40 MG PO (08:58)
[2024-02-02] MEDS: ASPIR LOW (ENTERIC COATED) 81 MG PO (08:59)
[2024-02-02] MEDS: TOPROL XL 25 MG PO (08:59)
[2024-02-02] MEDS: AVAPRO 150 MG PO ×2 (08:59→20:24)
[2024-02-02] MEDS: NON-FORMULARY ITEM 1 DROP RIGHT EYE (09:00)
[2024-02-02] MEDS: FLUSH (NSS) 1 FLUSH IV (09:01)
[2024-02-02 09:15] LABS: Blood Urea Nitrogen 15 mg/dl (9-20); Calcium 9.2 mg/dl (8.4-10.2); Carbon Dioxide 29 mmol/L (22-30); Chloride 106 mmol/L (98-107); Estimated Creatinine Clearance 74 ml/min; Glucose 89 mg/dl (70-99); Potassium 4.8 mmol/L (3.5-5.1); Sodium 136 mmol/L (135-145); eGFR > 60.00
[2024-02-02] MEDS: APRESOLINE 5 MG IV ×2 (11:50→12:10)
--- NOTE | 2024-02-02 11:58 | SUR.PHASEI ---
BP elevated on 2 readings, DR Hook informed of same, Hydralazine ordered and Given. Thanh hooker RN BSN.
--- NOTE | 2024-02-02 12:55 | PTCARENOTE ---
received post colonoscopy- awake and alert, assisted to bed. reporting no issues. no distress noted. PCT obtained electronic BP 176/106, manual BP obtained 160/94. plan of care on going.
[2024-02-02] MEDS: THERAGRAN 1 TABLET PO (13:36)
[2024-02-02] MEDS: HIPREX 1 GRAM PO ×2 (13:36→20:24)
--- NOTE | 2024-02-02 14:01 | W.PN.UPDATE ---
Update Note
Progress Note Update
s/p Colonoscopy today.
Findings:
Normal TI
1x small polyp in cecum, removed with biopsy forceps
1x small polyp in ascending colon, removed with biopsy forceps. 1x hemostatic clip placed
4 mm sessile polyp in rectum, removed via hot snare
7 mm pedunculated polyp w/ stigmata of recent bleeding in the rectum, removed via hot snare
Abnormal mucosa in the rectum, just proximal to the anal verge, biopsied
GI bleeding likely 2/2 large pedunculated polyp in rectum. No evidence of diverticular disease or AVMs.
Reccs:
-Resume full diet
-- hold AC for at least 6 hours, prefer heparin gtt overnight given multiple interventions today
-If abnormal mucosa in rectum returns as adenomatous tissue, will need EMR with Dr. Alba
--- NOTE | 2024-02-02 17:00 | CM ---
Had colonoscopy today.
Offered Vn he declined need.
Family will drive him home.
PLAN Home no needs
[2024-02-02] MEDS: NON-FORMULARY ITEM RIGHT EYE (20:24)
[2024-02-02] MEDS: LIPITOR 40 MG PO (20:24)
[2024-02-03] VITALS (7 sets, daily range): BP systolic 110–155; BP diastolic 72–101
[2024-02-03] MEDS: APRESOLINE 5 MG IV (05:38)
--- NOTE | 2024-02-03 07:13 | W.PN.HOSP.TC ---
Today's Communication/Plan
-
Start heparin drip. Restart warfarin. Monitor hemoglobin and INR.
Assessment / Plan
Assessment / Plan
Physical exam:
General: Well Developed, Well Nourished and No Apparent Distress
HEENT: Normocephalic, Atraumatic and Moist Mucous Membranes
Respiratory: Clear to Auscultation; Negative Wheezes, Rales or Rhonchi
Cardiac: Irregular rate and rhythm and S1/S2
GI: Soft, Nontender and Nondistended
Musculoskeletal: No Clubbing, No Cyanosis and No Edema
Neuro: Awake, Alert and Oriented. Prior deficits present.
Psych: Calm
Colonoscopy:
Normal TI
1x small polyp in cecum, removed with biopsy forceps
1x small polyp in ascending colon, removed with biopsy forceps. 1x hemostatic clip placed
4 mm sessile polyp in rectum, removed via hot snare
7 mm pedunculated polyp w/ stigmata of recent bleeding in the rectum, removed via hot snare
Abnormal mucosa in the rectum, just proximal to the anal verge, biopsied
GI bleeding likely 2/2 large pedunculated polyp in rectum. No evidence of diverticular disease or AVMs.
Assessment:
Acute lower GI bleed due to pedunculated polyp in the colon:
-Improving
-Status post colonoscopy on 02/01 as above
-Discussed with GI today and will start him on heparin drip to bridge him with Coumadin and GI okay with that. I also discussed with patient the option of starting Coumadin without heparin gtt which I did not favor but it is an option versus
heparin drip bridge and start Coumadin at 7.5 mg today and then we could go back to his regular 5 mg tomorrow depending on INR and he is okay with that approach. We could also use Lovenox for bridging later but hold off today due to recent
bleeding. Patient also wants to have cardiology involved in his care so I consulted cardiology today.
-Hemoglobin 12.1 today and INR is 1.51
-Monitor hemoglobin and INR tomorrow
Chronic Anemia perhaps some element of acute blood loss anemia
-Hemoglobin 12.1 today
-Continue to monitor hemoglobin to ensure stability while restarting anticoagulation and recent GI bleed s/p biopsies.
Parox A-fib
-Restarted Coumadin
- continue BB
-Check twelve-lead EKG today
-Cardiology consulted ([place] texted cardiology today)
Hx antiphospholipid antibody
-Start heparin drip today and restart warfarin today as well. He typically takes 5 mg of warfarin but will do a loading dose of 7.5 mg today.
- continue aspirin 81 mg daily
GERD
- continue PPI/H2 blockers
Essential HTN
- continue BB/ARB
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
- is able to dorsiflex left foot can stand to pivot on both feet with walker to wheelchair
CAD
PTCA with stent October 2006
- Continue statin, BP control
- continue ASA
HLD
- continue statin
Prostate cancer with radical prostatectomy
Hx UTIs
- continue Hiprex 1 g p.o. twice daily
cataract extraction right eye 01/12/2024, left eye 12/29/2023
DVT prophylaxis: SCDS and heparin drip and warfarin
Code: Full
Total time spent on today's encounter was 52 minutes which included time spent in counseling the patient/family regarding diagnosis and treatment plan as listed above, goals of care, and symptom management. Case was discussed with nursing staff,
specialists, and care coordinators/case management. All labs and imaging personally reviewed by me. Remainder the time spent in detailed review of previous records, lab data, imaging, and other medical provider documentation.
Anticipated Discharge: 24 - 48 hours
Subjective/Interval History
-
Date of Service: February 03, 2024
Patient denies any further GI bleeding. Denies abdominal pain nausea or vomiting. Denies chest pain or shortness of breath today. His blood pressure and heart rate has been fluctuating to some degree.
Objective Data
-
Labs:
Laboratory Results
02/03/24
06:19
WBC Pending
Hgb Pending
Hct Pending
Plt Count Pending
PT Pending
INR Pending
Sodium Pending
Potassium Pending
Chloride Pending
Carbon Dioxide Pending
BUN Pending
Creatinine Pending
Glucose Pending
Calcium Pending
Vital Signs:
Vital Signs
Temp Pulse Resp BP Pulse Ox
97.7 F 90 18 155/90 97
02/03/24 03:39 02/03/24 05:40 02/03/24 03:39 02/03/24 05:40 02/03/24 03:39
I&O
02/02/24 02/03/24 02/04/24
06:59 06:59 06:59
Intake Total 2100 / 2100 1760 / 1760
Output Total 1750 / 1750 600 / 600
Balance 350 / 350 1160 / 1160
Review of Systems
-
All other systems: Reviewed and negative
[2024-02-03 07:23] LABS: Hematocrit 35.4 % (39.0-52.0); Hemoglobin 12.1 g/dL (13.0-18.0); Mean Corp Hgb Conc. 34.2 g/dL (33.0-37.0); Mean Corpuscular Hgb 28.7 pg (27.0-31.0); Mean Corpuscular Volume 83.9 fL (80.0-94.0); Mean Platelet Volume 11.1 fL (7.4-10.4); Platelet Count 164 10^3/uL (130-400); Red Blood Cell Count 4.22 10^6/uL (4.70-6.10); Red Cell Dist. Width 15.1 % (11.5-14.5); White Blood Cell Count 6.4 10^3/uL (4.8-10.8)
[2024-02-03 07:46] LABS: INR 1.51
[2024-02-03 07:48] LABS: Blood Urea Nitrogen 19 mg/dl (9-20); Calcium 9.5 mg/dl (8.4-10.2); Carbon Dioxide 23 mmol/L (22-30); Chloride 107 mmol/L (98-107); Estimated Creatinine Clearance 74 ml/min; Glucose 100 mg/dl (70-99); Sodium 137 mmol/L (135-145); eGFR > 60.00
--- NOTE | 2024-02-03 08:29 | W.PN.GI.CBS2 ---
Today's Communication / Plan
-
Pathology from colonoscopy pending. No bleeding overnight, hemoglobin is stable. INR subtherapeutic, plan for heparin gtt bridge to coumadin. GI will sign off.
Assessment / Plan
-
Mr. Monroe is an 84 y.o. 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
cataract extraction admitted with rectal bleeding, now s/p colonoscopy. Several polyps removed, one pedunculated polyp in the rectum with stigmata of recent bleeding felt to be culprit of large-volume hematochezia on presentation, removed with hot
snare polypectomy. Additional findings below. Area of abnormal mucosa proximal to the anal verge was biopsied. He had no recurrence of bleeding overnight, however, given hot snare was used, there is a risk of delayed bleeding that needs to be
monitored, and patient is aware of. Plan to resume anticoagulation, heparin gtt with bridge to coumadin.
Discussed daily bowel regimen with patient-- certainly, he will continue to cause some irritation with such frequent digital disimpactions. Advised to trial metamucil along with a stool softener, such as colace, as he reports having such hard
stools. Outpatient follow-up for ongoing management. I will reach out to him once we have pathology results from his colonsocopy to determine if repeat procedure for EMR with Dr. Alba vs. colorectal surgery evaluation (given proximity to anal verge)
is necessary.
GI will sign off. Please call with questions.
Subjective
Subjective
Date of Service: February 03, 2024
Patient seen and examined at the bedside. No overnight events. Reports feeling well this morning. S/p colonoscopy yesterday, bleeding likely from pedunculated polyp, removed via hot snare. Additional small polyps removed. Area of abnormal mucosa
proximal to the anal verge biopsied, pathology pending.
Objective
Data Reviewed
Laboratory Data:
Laboratory Results
02/03/24 06:19
Laboratory Results
PT 18.0 Sec (11.4-14.6) H 02/03/24 06:19
INR 1.51 02/03/24 06:19
APTT 38.3 Sec (23.4-35.0) H 01/31/24 11:54
Total Bilirubin 0.7 mg/dl (0.2-1.3) 01/31/24 11:54
AST 37 U/L (17-59) 01/31/24 11:54
ALT 33 U/L (0-50) 01/31/24 11:54
Alkaline Phosphatase 116 U/L (38-126) 01/31/24 11:54
Vital Signs and I&O:
Vital Signs
Temp Pulse Resp BP Pulse Ox
97.6 F 102 12 136/99 98
02/03/24 08:12 02/03/24 08:12 02/03/24 08:12 02/03/24 08:12 02/03/24 08:12
I&O
02/02/24 02/03/24 02/04/24
06:59 06:59 06:59
Intake Total 2100 / 2100 1760 / 1760
Output Total 1750 / 1750 600 / 600
Balance 350 / 350 1160 / 1160
Physical Exam
Physical Exam
HEENT: Anicteric and Moist mucous membranes
Cardiology: Normal Sinus Rhythm, S1 and S2
Pulmonary: Clear
GI: Soft, Non Distended, Non Tender and Normal Bowel Sounds
Extremities: No Edema
Neuro: Non Focal
LE paralysis
[2024-02-03 08:47] LABS: APTT 31.8 Sec (23.4-35.0)
[2024-02-03] MEDS: TOPROL XL 25 MG PO (08:59)
[2024-02-03] MEDS: PROTONIX 40 MG PO (08:59)
[2024-02-03] MEDS: HIPREX 1 GRAM PO ×2 (08:59→21:49)
[2024-02-03] MEDS: PEPCID 40 MG PO (09:00)
[2024-02-03] MEDS: THERAGRAN 1 TABLET PO (09:00)
[2024-02-03] MEDS: NON-FORMULARY ITEM 1 DROP RIGHT EYE (09:00)
[2024-02-03] MEDS: ASPIR LOW (ENTERIC COATED) 81 MG PO (09:00)
[2024-02-03] MEDS: AVAPRO 150 MG PO ×2 (09:00→21:49)
[2024-02-03] MEDS: HEPARIN 6600 UNITS IV (11:08)
[2024-02-03] MEDS: HEPARIN 25000 UNITS/250 ML IV (11:10)
[2024-02-03 11:55] LABS: Glucose - Point of Care 135 mg/dl (70-99)
--- NOTE | 2024-02-03 12:36 | CON.CAR ---
Addendum entered and electronically signed by Dennis Ramesh MD 02/03/24 15:07:
I saw and examined the patient.
The TREE TOPPER's note was reviewed and I agree with the note.
84-year-old male well-known to me from previous outpatient visits, history of prior myocardial infarction and coronary stenting, spinal infarct with paraplegia (occurred years before he developed A-fib), antiphospholipid antibody, chronic
anticoagulation with Coumadin, persistent atrial fibrillation, hypertension hypercholesterolemia and prostate cancer. Patient admitted with GI bleed/bright red blood per rectum. He has undergone colonoscopy and polypectomy. Now being bridged on
heparin to Coumadin. Patient currently without symptoms no chest pain shortness of breath or palpitations. No evidence of recurrent bleeding while being maintained on anticoagulation. He has had some elevation in blood pressures and has been
getting as needed hydralazine. As an outpatient he is on irbesartan and low-dose Toprol. Although a modest increase in Toprol to 50 mg can be considered it may not be enough to titrate to achieve adequate blood pressure control. Would not add
amlodipine since patient chronically has some lower extremity edema
-Add hydralazine 10 mg twice daily and we can titrate as needed for additional blood pressure control
-Monitor for recurrent bleeding.
-IV heparin bridge to Coumadin.
Original Note:
Consultation
Consultation Request
Date/Time Consultation Requested: 02/03/2024 11:30
Date/Time Consultation Performed: 02/03/2024 12:30
Requesting Provider: Dr. Duenas
Performing Provider: ESCOBAR Colmenares for Dr. Ramesh
Reason for Consultation: Atrial fibrillation, HTN
Medical History
-
Chief Complaint: Bloody stool
History of Present Illness:
Maurice Monroe is an 84-year-old male (known to Dr. Ramesh, his primary seafood clerk), with coronary artery disease status post stenting, mildly dilated aortic root, mild to moderate mitral regurgitation, spinal infarct with paraplegia,
antiphospholipid antibody syndrome (on warfarin), retinal artery occlusion, paroxysmal atrial fibrillation (anticoagulation preceded PAF diagnosis), hypertension, hyperlipidemia, and prior prostate cancer who presented to the emergency department
with a chief complaint of BRBPR. He had a colonoscopy yesterday. GI bleeding was likely in the setting of large pedunculated polyp in the rectum. He is back on a heparin drip with bridge to warfarin. Cardiology was consulted for elevated heart
rate and elevated blood pressure. He was surprised his blood pressure has been elevated during his hospitalization. He states he gets it checked every at [facility] Systolic is usually under 130 mmHg. He was in atrial fibrillation at his
follow-up office visit with Dr. Ramesh 12/20/2023. He is asymptomatic. The plan was for rate control.
Past Medical History
Past Medical History: Arrhythmias (paroxysmal atrial fibrillation), CAD, Cancer (prostate), HTN, Hypercholesterolemia and Other (APL antibody [on warfarin])
Past Surgical History: Urological
Social History
Tobacco: Former Smoker
Alcohol: Occasional
Drug: None
Personal:
Living: With Family ( [resides at [facility]])
Employment: Retired
Family History
Family History: Reviewed & Not Pertinent
Allergies / Home Medications
Allergy/AdvReac Type Severity Reaction Status Date / Time
amoxicillin [From Augmentin] Allergy Rash Verified 01/31/24 10:50
clavulanic acid Allergy Rash Verified 01/31/24 10:50
[From Augmentin]
Sulfa (Sulfonamide Allergy Rash Verified 01/31/24 10:50
Antibiotics)
�Medication �Instructions �Recorded �Confirmed �Type
aspirin 81 mg tablet,delayed 81 mg PO DAILY Blood Clot 09/23/12 01/31/24 History
release Prevention/Tx
atorvastatin 40 mg tablet 40 mg PO HS High Cholesterol 08/20/20 01/31/24 History
irbesartan 150 mg tablet 150 mg PO BID High Cholesterol 08/26/23 01/31/24 History
methenamine hippurate 1 gram tablet 1 g PO BID Prevent UTI 08/26/23 01/31/24 History
metoprolol succinate 25 mg 25 mg PO DAILY Blood Pressure 08/26/23 01/31/24 History
tablet,extended release 24 hr
omeprazole 20 mg capsule,delayed 20 mg PO Q48H@0800 GERD 08/26/23 01/31/24 History
release
therapeutic multivitamin 1 tab PO DAILY Supplement 08/26/23 01/31/24 History
Pepcid AC 1 tab PO Q48H@0800 01/31/24 01/31/24 History
Gastrointestinal Issue
Unknown Eye Drops 1 drp RIGHT EYE .TAPER Eye 01/31/24 01/31/24 History
Condition
warfarin 5 mg tablet 5 mg PO SUMOTUTHFRSA@2200 Blood 01/31/24 01/31/24 History
Clot Prevention/Tx
warfarin 5 mg tablet 7.5 mg PO WE@2200 Blood Clot 01/31/24 01/31/24 History
Prevention/Tx
Review of Systems
-
History Source: Patient
All other systems: Negative unless noted
EENT: No Symptoms
Respiratory: No Symptoms
Cardiac: No Symptoms
Abdomen/GI: No Symptoms
Physical Exam
Vital Signs
Temp Pulse Resp BP Pulse Ox
98.1 F 88 16 110/72 98
02/03/24 12:11 02/03/24 12:11 02/03/24 12:11 02/03/24 12:11 02/03/24 12:11
Lab Results
02/03/24 08:27
02/03/24 06:19
Physical Exam
General: Well Developed, Well Nourished, No Apparent Distress and Comfortable
HEENT: Normocephalic, Anicteric and Moist Mucous Membranes
Respiratory: Clear and Non Labored Respirations
Cardiac: S1/S2, Irregular Rhythm and Peripheral Edema (+1 LE edema)
Breast: Deferred by me
GI: Soft, Non Distended and Normal Bowel Sounds
Rectal: Deferred by Provider
Genito-urinary: No Costovertebral Tender
Musculoskeletal: No Clubbing and No Cyanosis
Skin: Warm, Dry and Other (chronic purple discoloration to right sanders)
Neuro: AO x 3
Hematologic/Lymphatic: No Lymphadenopathy
Psych: Calm
Impression / Plan
-
Persistent atrial fibrillation
-Rates fairly controlled
-Asymptomatic
-Oral Anticoagulation: Heparin drip for warfarin bridging (APL)
-[id number]: score 6 (HTN, age 75 or more, prior Stroke/TIA, Vascular disease)
HTN
-BP is above goal on irbesartan 150 mg and metoprolol succinate 25 mgBID
-He has been receiving hydralazine 5 mg IV as needed, start hydralazine 10mg PO BID
-Avoid amlodipine due to LE edema
BRBPR, S/P colonoscopy 02/02/24
CAD, stable without chest pain
Antiphospholipid antibody syndrome, on heparin for bridging, per hematology in the outpatient setting
Dyslipidemia, on atorvastatin 40 mg
Spinal infarct with paraplegia
Prostate cancer status post prostatectomy
Data Reviewed
-
Medical Tests (Nuc Med, Echo etc): Report Reviewed by me (Prior echo as above)
Labs: Labs Reviewed by me
Old Records: Reviewed
--- NOTE | 2024-02-03 13:11 | CM ---
Addendum entered by Margo Trammell 02/03/24 15:02:
patient changed to INP and IMM completed and on chart.
Addendum entered by Margo Trammell 02/03/24 13:13:
patient started on heprin for transfer to [facility] when appropriate.
Original Note:
Patient seen at bedside, patient plan is for discharge home with no needs, patient declined VN supports. pending home with no needs. CM will continue to follow for discharge planning needs.
Plan; home with no needs anticipated.
[2024-02-03] MEDS: COUMADIN 7.5 MG PO (17:44)
[2024-02-03 18:11] LABS: APTT > 200 Sec (23.4-35.0)
[2024-02-03] MEDS: APRESOLINE 10 MG PO (21:48)
[2024-02-03] MEDS: LIPITOR 40 MG PO (21:48)
[2024-02-03] MEDS: NON-FORMULARY ITEM RIGHT EYE (21:49)
[2024-02-04 02:56] LABS: APTT 120.9 Sec (23.4-35.0)
[2024-02-04 03:36] VITALS: BP 149/96
[2024-02-04 08:13] VITALS: BP 188/138
[2024-02-04 08:29] VITALS: BP 150/90
[2024-02-04] MEDS: TOPROL XL 25 MG PO (08:31)
[2024-02-04] MEDS: AVAPRO 150 MG PO ×2 (08:31→20:49)
[2024-02-04] MEDS: PEPCID 40 MG PO (08:31)
[2024-02-04] MEDS: THERAGRAN 1 TABLET PO (08:31)
[2024-02-04] MEDS: ASPIR LOW (ENTERIC COATED) 81 MG PO (08:31)
[2024-02-04] MEDS: NON-FORMULARY ITEM 1 DROP RIGHT EYE (08:32)
[2024-02-04] MEDS: HIPREX 1 GRAM PO ×2 (08:32→20:49)
[2024-02-04] MEDS: APRESOLINE 10 MG PO ×2 (08:32→20:48)
[2024-02-04 09:49] LABS: Hemoglobin 12.3 g/dL (13.0-18.0); Mean Corp Hgb Conc. 33.2 g/dL (33.0-37.0); Mean Corpuscular Hgb 28.9 pg (27.0-31.0); Mean Corpuscular Volume 86.9 fL (80.0-94.0); Mean Platelet Volume 10.4 fL (7.4-10.4); Platelet Count 158 10^3/uL (130-400); Red Blood Cell Count 4.26 10^6/uL (4.70-6.10); Red Cell Dist. Width 15.2 % (11.5-14.5); White Blood Cell Count 5.7 10^3/uL (4.8-10.8)
[2024-02-04] MEDS: HEPARIN 25000 UNITS/250 ML IV (09:50)
[2024-02-04 10:02] LABS: INR 1.53; PT 18.2 Sec (11.4-14.6)
[2024-02-04 10:03] LABS: APTT 84.3 Sec (23.4-35.0)
[2024-02-04 10:09] LABS: Blood Urea Nitrogen 19 mg/dl (9-20); Calcium 9.4 mg/dl (8.4-10.2); Carbon Dioxide 26 mmol/L (22-30); Chloride 107 mmol/L (98-107); Estimated Creatinine Clearance 74 ml/min; Glucose 120 mg/dl (70-99); Potassium 4.4 mmol/L (3.5-5.1); Sodium 137 mmol/L (135-145); eGFR > 60.00
[2024-02-04 11:58] VITALS: BP 115/81
--- NOTE | 2024-02-04 12:34 | W.PN.HOSP.TC ---
Today's Communication/Plan
-
see bold
Assessment / Plan
Assessment / Plan
Gen: NAD, AAOx3.
Eyes: EOMI, PERRLA, no scleral icterus.
Neck: supple.
CV: irreg/irreg, +S1/S2, no m/r/g.
Resp: CTAB, no rales, wheezes, or rhonchi.
Abd: +BS, soft, NT, ND
Skin: No rashes.
Neuro: CN 2-12 intact, non-focal.
Psych: Normal mood and affect.
Colonoscopy:
Normal TI
1x small polyp in cecum, removed with biopsy forceps
1x small polyp in ascending colon, removed with biopsy forceps. 1x hemostatic clip placed
4 mm sessile polyp in rectum, removed via hot snare
7 mm pedunculated polyp w/ stigmata of recent bleeding in the rectum, removed via hot snare
Abnormal mucosa in the rectum, just proximal to the anal verge, biopsied
GI bleeding likely 2/2 large pedunculated polyp in rectum. No evidence of diverticular disease or AVMs.
Acute lower GI bleed due to pedunculated polyp in the colon:
-Chronic Anemia with perhaps some element of acute blood loss anemia
-s/p colonoscopy on 02/01 as above
-Hb stable
Parox A-fib:
-cont heparin/coumadin bridge (10mg coumadin tonight)
-continue BB
h/o antiphospholipid antibody syndrome:
-heparin/coumadin bridge
GERD
- continue PPI/H2 blockers
Essential HTN
- continue BB/ARB
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
- is able to dorsiflex left foot can stand to pivot on both feet with walker to wheelchair
CAD
PTCA with stent October 2006
- Continue statin, BP control
- continue ASA
HLD
- continue statin
Prostate cancer with radical prostatectomy
Hx UTIs
- continue Hiprex 1 g p.o. twice daily
cataract extraction right eye 01/12/2024, left eye 12/29/2023
DVT prophylaxis: SCDS and heparin drip and warfarin
Code: Full
Anticipated Discharge: 24 - 48 hours
Subjective/Interval History
-
Date of Service: February 04, 2024
Denies CP/SOB
Objective Data
-
Labs:
Laboratory Results
02/04/24 02/04/24 02/04/24
02:25 06:00 09:40
WBC 5.7
Hgb 12.3 L
Hct 37.0 L
Plt Count 158
PT Cancelled 18.2 H
INR Cancelled 1.53
APTT 120.9 H 84.3 H
Sodium 137
Potassium 4.4
Chloride 107
Carbon Dioxide 26
BUN 19
Creatinine 0.8
Glucose 120 H
Calcium 9.4
Vital Signs:
Vital Signs
Temp Pulse Resp BP Pulse Ox
98.2 F 91 18 115/81 98
02/04/24 11:58 02/04/24 11:58 02/04/24 11:58 02/04/24 11:58 02/04/24 11:58
I&O
02/03/24 02/04/24 02/05/24
06:59 06:59 06:59
Intake Total 1760 / 1760 960 / 960
Output Total 600 / 600 1225 / 1225 1000 / 1000
Balance 1160 / 1160 -265 / -265 -1000 / -1000
[2024-02-04 16:04] VITALS: BP 130/81
[2024-02-04] MEDS: COUMADIN 10 MG PO (17:46)
[2024-02-04] MEDS: LIPITOR 40 MG PO (20:49)
[2024-02-04] MEDS: NON-FORMULARY ITEM RIGHT EYE (21:23)
[2024-02-04 23:38] VITALS: BP 144/99
[2024-02-05 07:46] LABS: Hematocrit 34.7 % (39.0-52.0); Hemoglobin 11.5 g/dL (13.0-18.0); Mean Corp Hgb Conc. 33.1 g/dL (33.0-37.0); Mean Corpuscular Hgb 28.3 pg (27.0-31.0); Mean Corpuscular Volume 85.3 fL (80.0-94.0); Mean Platelet Volume 10.8 fL (7.4-10.4); Platelet Count 147 10^3/uL (130-400); Red Blood Cell Count 4.07 10^6/uL (4.70-6.10); Red Cell Dist. Width 15.3 % (11.5-14.5); White Blood Cell Count 5.2 10^3/uL (4.8-10.8)
[2024-02-05 07:54] VITALS: BP 148/90
[2024-02-05] MEDS: PEPCID 40 MG PO (07:55)
[2024-02-05] MEDS: AVAPRO 150 MG PO (07:55)
[2024-02-05] MEDS: ASPIR LOW (ENTERIC COATED) 81 MG PO (07:55)
[2024-02-05] MEDS: HIPREX 1 GRAM PO (07:55)
[2024-02-05] MEDS: THERAGRAN 1 TABLET PO (07:55)
[2024-02-05] MEDS: PROTONIX 40 MG PO (07:55)
[2024-02-05] MEDS: APRESOLINE 10 MG PO (07:55)
[2024-02-05] MEDS: TOPROL XL 25 MG PO (07:56)
[2024-02-05] MEDS: NON-FORMULARY ITEM 1 DROP RIGHT EYE (07:56)
[2024-02-05 08:06] LABS: INR 2.27; PT 24.9 Sec (11.4-14.6)
[2024-02-05 08:07] LABS: APTT 82.8 Sec (23.4-35.0)
--- NOTE | 2024-02-05 10:18 | W.PN.HOSP.TC ---
Today's Communication/Plan
-
see bold
Assessment / Plan
Assessment / Plan
Gen: NAD, AAOx3.
Neck: supple.
CV: remains irreg/irreg, +S1/S2, no m/r/g.
Resp: remains CTAB, no rales, wheezes, or rhonchi.
Abd: +BS, soft, NT, ND
Skin: No rashes.
Neuro: remains CN 2-12 intact, non-focal.
Psych: Normal mood and affect.
Colonoscopy:
Normal TI
1x small polyp in cecum, removed with biopsy forceps
1x small polyp in ascending colon, removed with biopsy forceps. 1x hemostatic clip placed
4 mm sessile polyp in rectum, removed via hot snare
7 mm pedunculated polyp w/ stigmata of recent bleeding in the rectum, removed via hot snare
Abnormal mucosa in the rectum, just proximal to the anal verge, biopsied
GI bleeding likely 2/2 large pedunculated polyp in rectum. No evidence of diverticular disease or AVMs.
Acute lower GI bleed due to pedunculated polyp in the colon:
-Chronic Anemia with perhaps some element of acute blood loss anemia
-s/p colonoscopy on 02/01 as above
-Hb stable
Parox A-fib:
-stop heparin gtt as INR now therapeutic
-continue BB
h/o antiphospholipid antibody syndrome:
-stop heparin gtt as INR now therapeutic
GERD
- continue PPI/H2 blockers
Essential HTN
- continue BB/ARB
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
- is able to dorsiflex left foot can stand to pivot on both feet with walker to wheelchair
CAD
PTCA with stent October 2006
- Continue statin, BP control
- continue ASA
HLD
- continue statin
Prostate cancer with radical prostatectomy
Hx UTIs
- continue Hiprex 1 g p.o. twice daily
cataract extraction right eye 01/12/2024, left eye 12/29/2023
Medically stable for d/c.
Total time spent on d/c = 31 min. This included today's physical exam, progress note, review of laboratory and diagnostic data, preparation of discharge documents and prescriptions, and discussions about the pt's hospital course and discharge plan
with the patient and other registered medical transcriptionist involved in the patient's care.
Anticipated Discharge: Today
Subjective/Interval History
-
Date of Service: February 05, 2024
No CP/SOB.
Objective Data
-
Labs:
Laboratory Results
02/05/24
07:06
WBC 5.2
Hgb 11.5 L
Hct 34.7 L
Plt Count 147
PT 24.9 H
INR 2.27
APTT 82.8 H
Vital Signs:
Vital Signs
Temp Pulse Resp BP Pulse Ox
98 F 92 20 148/90 97
02/05/24 07:10 02/05/24 07:10 02/05/24 07:10 02/05/24 07:54 02/05/24 07:10
I&O
02/04/24 02/05/24 02/06/24
06:59 06:59 06:59
Intake Total 960 / 960 1080 / 1080
Output Total 1225 / 1225 2500 / 2500
Balance -265 / -265 -1420 / -1420
--- NOTE | 2024-02-05 11:53 | CM ---
MD entered order for discharge.
spoke with patient he is agreement with dc and IMM .
He said his Carley Alba will drive him home.
Offered VN he declined need.
PLAN Home no needs
[2024-02-05 12:01] VITALS: BP 133/82
--- NOTE | 2024-02-05 13:09 | W.DCSUMMARY ---
Discharge Summary
Discharge Data
Date of Admission: 02/03/24
Date of Discharge: 02/05/24
-
Pending Results: No
Hospital Course
Primary diagnoses:
Acute on chronic anemia (likely an element of acute blood loss anemia) due to acute lower GI bleeding due to pedunculated colon polyp
Secondary diagnoses:
Paroxysmal atrial fibrillation
h/o antiphospholipid antibody syndrome:
Gastroesophageal reflux disease
Essential hypertension
h/o spinal artery occlusion with cerebrovascular and lower extremity paralysis
Coronary disease with h/o stent October 2006
Hyperlipidemia
Prostate cancer with radical prostatectomy
h/o recurrent urinary tract infections
cataract extraction right eye 01/12/2024, left eye 12/29/2023
Consultants:
Cardiology
Gastroenterology
Imaging: None
Studies:
Colonoscopy:
Normal TI
1x small polyp in cecum, removed with biopsy forceps
1x small polyp in ascending colon, removed with biopsy forceps. 1x hemostatic clip placed
4 mm sessile polyp in rectum, removed via hot snare
7 mm pedunculated polyp w/ stigmata of recent bleeding in the rectum, removed via hot snare
Abnormal mucosa in the rectum, just proximal to the anal verge, biopsied
GI bleeding likely 2/2 large pedunculated polyp in rectum. No evidence of diverticular disease or AVMs.
Hospital course: 84-year-old male who presented with a chief complaint of rectal bleeding as outlined in the H&P done on admission. Hemoglobin was 12.3 on admission and remained stable while hospitalized. He was on Coumadin which was held.
Patient underwent colonoscopy as above. It was notable for 7 mm pedunculated polyp with stigmata of recent bleeding in the rectum which was removed. The patient was bridged back to a therapeutic INR with a heparin drip. He was discharged in
medically stable condition.
Discharge Plan
-
Patient Disposition: Home (Routine Discharge)
Discharge Diagnosis/Procedures: Acute lower gastrointestinal bleeding due to pedunculated polyp in the colon
Condition: Good
Diet: No restrictions
Activity: No restrictions
Driving Restrictions: As prior to admission
Blood Work: INR 2 days, CBC and BMP in 1 week, prescription from PCP
Referrals:
Harsh Becker MD [Family Provider] - in less than 1 week
Prescriptions:
New
hydralazine 10 mg Tablet
10 mg PO BID Qty: 60 0RF
Continued
aspirin 81 MG tablet,delayed release (DR/EC)
81 mg PO DAILY
atorvastatin 40 MG tablet
40 mg PO HS
therapeutic multivitamin Tablet
1 tab PO DAILY
methenamine hippurate 1 gram Tablet
1 g PO BID
omeprazole 20 mg Capsule,Delayed Release(Dr/Ec)
20 mg PO Q48H@0800
metoprolol succinate 25 mg Tablet Extended Release 24 Hr
25 mg PO DAILY
irbesartan 150 mg Tablet
150 mg PO BID
warfarin 5 mg Tablet
5 mg PO SUMOTUTHFRSA@2200
warfarin 5 mg Tablet
7.5 mg PO WE@2200
Pepcid AC
1 tab PO Q48H@0800
Patient Comments:
01/31/2024, pt. unsure of strength.
Unknown Eye Drops
1 drp RIGHT EYE .TAPER
Patient Comments:
01/31/2024, pt. applies one drop into right eye BID this week; then, starting next week, he will place one drop into right eye daily for a week. Pt. 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
surgery.
Discharge Orders:
Discharge Patient (As Directed); Ordered 02/05/24
Ordered By: Juan Ulloa
Discharge Date and Time
Discharge Date/Time: 02/05/24 12:53
Print Language: [id number]
== END 2024-02-05 12:53 | disposition home or self-care (01) | DRG 394 ==
LOC: 4 EAST ACU 12:19
PROVIDERS: Clinical Nurse Specialist Family Health; Hospitalist; Physician Assistant Medical; ADMITTING PHYSICIAN Internal Medicine; ATTENDING PHYSICIAN Internal Medicine; CONSULT PHYSICIAN Internal Medicine Cardiovascular Disease; EMERGENCY PHYSICIAN Emergency Medicine; FAMILY PHYSICIAN Internal Medicine; OTHER PHYSICIAN Internal Medicine
PROC: 0DBH8ZX Excision of Cecum, Via Natural or Artificial Opening Endoscopic, Diagnostic (ICD-10-PCS; 2024-02-03)
PROC: 0DBM8ZX Excision of Descending Colon, Via Natural or Artificial Opening Endoscopic, Diagnostic (ICD-10-PCS; 2024-02-03)
PROC: 0DBP8ZX Excision of Rectum, Via Natural or Artificial Opening Endoscopic, Diagnostic (ICD-10-PCS; 2024-02-03)
DX: D12.0 Benign neoplasm of cecum (principal); D62 Acute posthemorrhagic anemia; K92.2 Gastrointestinal hemorrhage, unspecified; Z79.01 Long term (current) use of anticoagulants; Z79.82 Long term (current) use of aspirin; I48.0 Paroxysmal atrial fibrillation; K21.9 Gastro-esophageal reflux disease without esophagitis; I10 Essential (primary) hypertension; I25.10 Atherosclerotic heart disease of native coronary artery without angina pectoris; Z87.891 Personal history of nicotine dependence; D12.4 Benign neoplasm of descending colon; D12.8 Benign neoplasm of rectum; E78.00 Pure hypercholesterolemia, unspecified
CPT/HCPCS: 88305; 80048; 80053; 82962; 85025; 85027; 85610; 85730; 86850; 86900; 86901; 93005; 97162; 97166; 97530; 99285

== ENCOUNTER → 2024-02-07 10:36 | Outpatient (REF) | payer MEDICARE, OTHER, SELFPAY ==
[2024-02-07 11:28] LABS: INR 2.78; PT 29.3 Sec (11.4-14.6)
== END ==
LOC: OLABLV 10:36
PROVIDERS: ATTENDING PHYSICIAN Internal Medicine
DX: D68.61 Antiphospholipid syndrome (principal)
CPT/HCPCS: 36415; 85610

== ENCOUNTER → 2024-02-14 11:17 | Outpatient (REF) | payer MEDICARE, OTHER, SELFPAY ==
[2024-02-14 12:28] LABS: % Basophils 1.2 % (0-2); % Eosinophils 3.8 % (0-6); % Immature Granulocytes 0.3 % (0-0.5); % Lymphocytes 25.5 % (20.5-51.1); % Monocytes 11.8 % (1.7-9.3); % Neutrophils 57.4 % (42.2-75.2); Absolute Basophils 0.1 10^3/uL (0-0.2); Absolute Eosinophils 0.2 10^3/uL (0-0.7); Absolute Lymphocytes 1.6 10^3/uL (1.2-3.4); Absolute Monocytes 0.7 10^3/uL (0.1-0.6); Absolute Neutrophils 3.5 10^3/uL (1.4-6.5); Hematocrit 34.6 % (39.0-52.0); Hemoglobin 11.5 g/dL (13.0-18.0); Mean Corp Hgb Conc. 33.2 g/dL (33.0-37.0); Mean Corpuscular Hgb 28.1 pg (27.0-31.0); Mean Corpuscular Volume 84.6 fL (80.0-94.0); Mean Platelet Volume 11.3 fL (7.4-10.4); Nucleated Red Blood Cells % 0 % (-); Platelet Count 184 10^3/uL (130-400); Red Blood Cell Count 4.09 10^6/uL (4.70-6.10); White Blood Cell Count 6.1 10^3/uL (4.8-10.8)
[2024-02-14 12:45] LABS: Blood Urea Nitrogen 23 mg/dl (9-20); Calcium 9.4 mg/dl (8.4-10.2); Carbon Dioxide 22 mmol/L (22-30); Chloride 105 mmol/L (98-107); Glucose 88 mg/dl (70-99); Potassium 4.4 mmol/L (3.5-5.1); Sodium 134 mmol/L (135-145); eGFR > 60.00
== END ==
LOC: OLABPV 11:17
PROVIDERS: ATTENDING PHYSICIAN Internal Medicine
DX: K92.2 Gastrointestinal hemorrhage, unspecified (principal); D64.9 Anemia, unspecified
CPT/HCPCS: 36415; 80048; 85025

== ENCOUNTER → 2024-02-15 07:01 | Outpatient (REF) | payer MEDICARE, OTHER, SELFPAY | LOC: MRI 07:01 | PROVIDERS: ATTENDING PHYSICIAN Orthopaedic Surgery; FAMILY PHYSICIAN Internal Medicine | DX: M25.511 Pain in right shoulder (principal) | CPT/HCPCS: 73221 ==

== ENCOUNTER → 2024-02-24 09:49 | Outpatient (REF) | payer MEDICARE, OTHER, SELFPAY ==
[2024-02-24 10:38] LABS: INR 3.38; PT 34.2 Sec (11.4-14.6)
== END ==
LOC: OLABPV 09:49
PROVIDERS: ATTENDING PHYSICIAN Internal Medicine
DX: D68.61 Antiphospholipid syndrome (principal)
CPT/HCPCS: 36415; 85610

== ENCOUNTER → 2024-03-06 10:50 | Outpatient (REF) | payer MEDICARE, OTHER, SELFPAY ==
[2024-03-06 11:58] LABS: INR 2.15; PT 23.9 Sec (11.4-14.6)
[2024-03-06 12:47] LABS: PSA, Total - Diagnostic 0.17 ng/ml (0.0-4.0)
== END ==
LOC: OLABPV 10:50
PROVIDERS: ATTENDING PHYSICIAN Specialist; FAMILY PHYSICIAN Internal Medicine
DX: D68.61 Antiphospholipid syndrome (principal); C61 Malignant neoplasm of prostate
CPT/HCPCS: 36415; 84153; 85610

== ENCOUNTER → 2024-03-20 13:28 | Outpatient (REF) | payer MEDICARE, OTHER, SELFPAY ==
[2024-03-20 14:54] LABS: % Basophils 0.7 % (0-2); % Eosinophils 3.2 % (0-6); % Immature Granulocytes 0.3 % (0-0.5); % Monocytes 9.1 % (1.7-9.3); % Neutrophils 61.7 % (42.2-75.2); Absolute Eosinophils 0.2 10^3/uL (0-0.7); Absolute Lymphocytes 1.5 10^3/uL (1.2-3.4); Absolute Monocytes 0.5 10^3/uL (0.1-0.6); Absolute Neutrophils 3.6 10^3/uL (1.4-6.5); Hematocrit 37.6 % (39.0-52.0); Hemoglobin 12.1 g/dL (13.0-18.0); Mean Corp Hgb Conc. 32.2 g/dL (33.0-37.0); Mean Corpuscular Hgb 27.8 pg (27.0-31.0); Mean Corpuscular Volume 86.2 fL (80.0-94.0); Mean Platelet Volume 11.3 fL (7.4-10.4); Nucleated Red Blood Cells % 0 % (-); Platelet Count 149 10^3/uL (130-400); Red Blood Cell Count 4.36 10^6/uL (4.70-6.10); Red Cell Dist. Width 15.2 % (11.5-14.5); White Blood Cell Count 5.9 10^3/uL (4.8-10.8)
== END ==
LOC: OLABPV 13:28
PROVIDERS: ATTENDING PHYSICIAN Internal Medicine
DX: D50.0 Iron deficiency anemia secondary to blood loss (chronic) (principal)
CPT/HCPCS: 36415; 85025

== ENCOUNTER → 2024-04-06 11:57 | Outpatient (REF) | payer MEDICARE, OTHER, SELFPAY ==
[2024-04-06 12:21] LABS: INR 2.53; PT 27.2 Sec (11.4-14.6)
== END ==
LOC: OLABPV 11:57
PROVIDERS: ATTENDING PHYSICIAN Internal Medicine
DX: D68.61 Antiphospholipid syndrome (principal)
CPT/HCPCS: 36415; 85610

== ENCOUNTER → 2024-05-04 11:59 | Outpatient (REF) | payer MEDICARE, OTHER, SELFPAY ==
[2024-05-04 12:39] LABS: INR 3.59; PT 35.9 Sec (11.4-14.6)
== END ==
LOC: OLABPV 11:59
PROVIDERS: ATTENDING PHYSICIAN Internal Medicine
DX: D68.61 Antiphospholipid syndrome (principal)
CPT/HCPCS: 85610

== ENCOUNTER → 2024-05-15 11:41 | Outpatient (REF) | payer MEDICARE, OTHER, SELFPAY ==
[2024-05-15 12:11] LABS: PT 36.7 Sec (11.4-14.6)
== END ==
LOC: OLABPV 11:41
PROVIDERS: ATTENDING PHYSICIAN Internal Medicine
DX: D68.61 Antiphospholipid syndrome (principal)
CPT/HCPCS: 36415; 85610

== ENCOUNTER → 2024-05-23 10:38 | Outpatient (REF) | payer MEDICARE, OTHER, SELFPAY ==
[2024-05-23 13:40] LABS: INR 1.95; PT 22.5 Sec (11.4-14.6)
== END ==
LOC: OLABPV 10:38
PROVIDERS: ATTENDING PHYSICIAN Internal Medicine
DX: Z79.01 Long term (current) use of anticoagulants (principal)
CPT/HCPCS: 36415; 85610

== ENCOUNTER → 2024-05-30 09:15 | Outpatient (REF) | payer MEDICARE, OTHER, SELFPAY ==
[2024-05-30 09:44] LABS: INR 2.53; PT 27.6 Sec (11.4-14.6)
== END ==
LOC: OLABPV 09:15
PROVIDERS: ATTENDING PHYSICIAN Internal Medicine
DX: Z79.01 Long term (current) use of anticoagulants (principal)
CPT/HCPCS: 36415; 85610

== ENCOUNTER → 2024-06-27 10:24 | Outpatient (REF) | payer MEDICARE, OTHER, SELFPAY ==
[2024-06-27 12:08] LABS: % Basophils 0.9 % (0-2); % Eosinophils 3.1 % (0-6); % Immature Granulocytes 0.3 % (0-0.5); % Lymphocytes 18.7 % (20.5-51.1); % Monocytes 11.8 % (1.7-9.3); % Neutrophils 65.2 % (42.2-75.2); Absolute Basophils 0.1 10^3/uL (0-0.2); Absolute Eosinophils 0.2 10^3/uL (0-0.7); Absolute Lymphocytes 1.2 10^3/uL (1.2-3.4); Absolute Monocytes 0.8 10^3/uL (0.1-0.6); Absolute Neutrophils 4.2 10^3/uL (1.4-6.5); Hematocrit 32.9 % (39.0-52.0); Hemoglobin 11.1 g/dL (13.0-18.0); Mean Corp Hgb Conc. 33.7 g/dL (33.0-37.0); Mean Corpuscular Hgb 27.4 pg (27.0-31.0); Mean Corpuscular Volume 81.2 fL (80.0-94.0); Mean Platelet Volume 10.9 fL (7.4-10.4); Nucleated Red Blood Cells % 0 % (-); Platelet Count 206 10^3/uL (130-400); Red Blood Cell Count 4.05 10^6/uL (4.70-6.10); Red Cell Dist. Width 15.3 % (11.5-14.5); White Blood Cell Count 6.4 10^3/uL (4.8-10.8)
[2024-06-27 12:10] LABS: INR 3.81; PT 38.2 Sec (11.4-14.6)
== END ==
LOC: OLABPV 10:24
PROVIDERS: ATTENDING PHYSICIAN Internal Medicine
DX: D68.61 Antiphospholipid syndrome (principal); D64.9 Anemia, unspecified
CPT/HCPCS: 36415; 85025; 85610

== ENCOUNTER → 2024-07-04 12:23 | Outpatient (REF) | payer MEDICARE, OTHER, SELFPAY ==
[2024-07-04 13:31] LABS: INR 2.26; PT 25.2 Sec (11.4-14.6)
== END ==
LOC: OLABP 12:23
PROVIDERS: ATTENDING PHYSICIAN Internal Medicine
DX: Z79.01 Long term (current) use of anticoagulants (principal)
CPT/HCPCS: 36415; 85610

== ENCOUNTER → 2024-08-01 11:34 | Outpatient (REF) | payer MEDICARE, OTHER, SELFPAY ==
[2024-08-01 12:27] LABS: % Basophils 0.6 % (0-2); % Eosinophils 0.5 % (0-6); % Immature Granulocytes 0.4 % (0-0.5); % Lymphocytes 10.8 % (20.5-51.1); % Monocytes 11.4 % (1.7-9.3); % Neutrophils 76.3 % (42.2-75.2); Absolute Basophils 0.1 10^3/uL (0-0.2); Absolute Lymphocytes 0.9 10^3/uL (1.2-3.4); Absolute Monocytes 0.9 10^3/uL (0.1-0.6); Hematocrit 35.1 % (39.0-52.0); Mean Corp Hgb Conc. 34.2 g/dL (33.0-37.0); Mean Corpuscular Volume 84.8 fL (80.0-94.0); Mean Platelet Volume 11.2 fL (7.4-10.4); Nucleated Red Blood Cells % 0 % (-); Platelet Count 143 10^3/uL (130-400); Red Blood Cell Count 4.14 10^6/uL (4.70-6.10); Red Cell Dist. Width 15.4 % (11.5-14.5); Reticulocyte Count 1.7 % (0.4-2.8); White Blood Cell Count 7.9 10^3/uL (4.8-10.8)
[2024-08-01 12:32] LABS: INR 3.28; PT 33.9 Sec (11.4-14.6)
[2024-08-01 13:08] LABS: Iron 55 ug/dl (49-181)
[2024-08-01 13:18] LABS: Percent Saturation 14 % (20-50); Total Iron Binding Capacity 389 ug/dl (261-462)
== END ==
LOC: OLABPV 11:34
PROVIDERS: ATTENDING PHYSICIAN Internal Medicine
DX: D68.61 Antiphospholipid syndrome (principal); I48.91 Unspecified atrial fibrillation
CPT/HCPCS: 36415; 82728; 83540; 83550; 85025; 85045; 85610

== ENCOUNTER → 2024-08-22 10:14 | Outpatient (REF) | payer MEDICARE, OTHER, SELFPAY ==
[2024-08-22 11:19] LABS: PT 24.9 Sec (11.4-14.6)
== END ==
LOC: OLABPV 10:14
PROVIDERS: ATTENDING PHYSICIAN Internal Medicine
DX: D68.61 Antiphospholipid syndrome (principal)
CPT/HCPCS: 36415; 85610

== ENCOUNTER → 2024-09-19 11:15 | Outpatient (REF) | payer MEDICARE, OTHER, SELFPAY ==
[2024-09-19 12:53] LABS: INR 2.74; PT 29.4 Sec (11.4-14.6)
== END ==
LOC: OLABPV 11:15
PROVIDERS: ATTENDING PHYSICIAN Internal Medicine
DX: Z79.01 Long term (current) use of anticoagulants (principal)
CPT/HCPCS: 36415; 85610

== ENCOUNTER → 2024-09-26 11:34 | Outpatient (REF) | payer MEDICARE, OTHER, SELFPAY ==
[2024-09-26 12:57] LABS: INR 3.17; PT 32.8 Sec (11.4-14.6)
== END ==
LOC: OLABPV 11:34
PROVIDERS: ATTENDING PHYSICIAN Internal Medicine
DX: Z79.01 Long term (current) use of anticoagulants (principal)
CPT/HCPCS: 36415; 85610

== ENCOUNTER → 2024-10-03 09:05 | Outpatient (REF) | payer MEDICARE, OTHER, SELFPAY ==
[2024-10-03 11:07] LABS: INR 3.13; PT 32.5 Sec (11.4-14.6)
== END ==
LOC: OLABPV 09:05
PROVIDERS: ATTENDING PHYSICIAN Internal Medicine
DX: Z79.01 Long term (current) use of anticoagulants (principal)
CPT/HCPCS: 36415; 85610

== ENCOUNTER → 2024-10-12 08:57 | Outpatient (REF) | payer MEDICARE, OTHER, SELFPAY ==
[2024-10-12 11:51] LABS: INR 2.31; PT 25.8 Sec (11.4-14.6)
== END ==
LOC: OLABPV 08:57
PROVIDERS: ATTENDING PHYSICIAN Internal Medicine
DX: Z79.01 Long term (current) use of anticoagulants (principal)
CPT/HCPCS: 36415; 85610

== ENCOUNTER → 2024-11-07 09:28 | Outpatient (REF) | payer MEDICARE, OTHER, SELFPAY ==
[2024-11-07 11:05] LABS: INR 3.11; PT 31.9 Sec (11.4-14.6)
== END ==
LOC: OLABPV 09:28
PROVIDERS: ATTENDING PHYSICIAN Internal Medicine
DX: D68.61 Antiphospholipid syndrome (principal)
CPT/HCPCS: 36415; 85610

== ENCOUNTER → 2024-11-21 11:37 | Outpatient (REF) | payer MEDICARE, OTHER, SELFPAY ==
[2024-11-21 12:29] LABS: INR 2.69
== END ==
LOC: OLABPV 11:37
PROVIDERS: ATTENDING PHYSICIAN Internal Medicine
DX: Z79.01 Long term (current) use of anticoagulants (principal)
CPT/HCPCS: 36415; 85610

== ENCOUNTER → 2024-12-17 13:03 | Outpatient (REF) | payer MEDICARE, OTHER, SELFPAY | LOC: RCS 13:03 | PROVIDERS: ATTENDING PHYSICIAN Internal Medicine Cardiovascular Disease; FAMILY PHYSICIAN Internal Medicine | DX: I77.810 Thoracic aortic ectasia (principal); I10 Essential (primary) hypertension; I48.19 Other persistent atrial fibrillation; I25.10 Atherosclerotic heart disease of native coronary artery without angina pectoris; I35.8 Other nonrheumatic aortic valve disorders; I34.0 Nonrheumatic mitral (valve) insufficiency | CPT/HCPCS: 93306 ==

== ENCOUNTER → 2024-12-19 10:16 | Outpatient (REF) | payer MEDICARE, OTHER, SELFPAY ==
[2024-12-19 11:08] LABS: INR 3.87; PT 38.2 Sec (11.4-14.6)
== END ==
LOC: OLABPV 10:16
PROVIDERS: ATTENDING PHYSICIAN Internal Medicine
DX: D68.61 Antiphospholipid syndrome (principal)
CPT/HCPCS: 36415; 85610

== ENCOUNTER → 2024-12-26 10:05 | Outpatient (REF) | payer MEDICARE, OTHER, SELFPAY ==
[2024-12-26 13:49] LABS: INR 2.87; PT 30.4 Sec (11.4-14.6)
== END ==
LOC: OLABPV 10:05
PROVIDERS: ATTENDING PHYSICIAN Internal Medicine
DX: Z79.01 Long term (current) use of anticoagulants (principal)
CPT/HCPCS: 36415; 85610

== ENCOUNTER → 2025-01-23 09:32 | Outpatient (REF) | payer MEDICARE, OTHER, SELFPAY ==
[2025-01-23 11:43] LABS: INR 2.83; PT 30.1 Sec (11.4-14.6)
== END ==
LOC: OLABPV 09:32
PROVIDERS: ATTENDING PHYSICIAN Internal Medicine
DX: D68.61 Antiphospholipid syndrome (principal)
CPT/HCPCS: 36415; 85610

== ENCOUNTER → 2025-02-22 11:18 | Outpatient (REF) | payer MEDICARE, OTHER, SELFPAY ==
[2025-02-22 12:34] LABS: INR 2.46; PT 26.7 Sec (11.4-14.6)
== END ==
LOC: OLABPV 11:18
PROVIDERS: ATTENDING PHYSICIAN Internal Medicine
DX: D68.61 Antiphospholipid syndrome (principal)
CPT/HCPCS: 36415; 85610

== ENCOUNTER → 2025-03-12 12:18 | Outpatient (REF) | payer MEDICARE, OTHER, SELFPAY ==
[2025-03-12 13:36] LABS: PSA, Total - Diagnostic 0.39 ng/ml (0.0-4.0)
== END ==
LOC: OLABPV 12:18
PROVIDERS: ATTENDING PHYSICIAN Specialist
DX: C61 Malignant neoplasm of prostate (principal)
CPT/HCPCS: 36415; 84153

== ENCOUNTER → 2025-03-26 10:58 | Outpatient (REF) | payer MEDICARE, OTHER, SELFPAY ==
[2025-03-26 11:23] LABS: INR 4.51; PT 42.2 Sec (11.4-14.6)
== END ==
LOC: OLABPV 10:58
PROVIDERS: ATTENDING PHYSICIAN Internal Medicine
DX: Z79.01 Long term (current) use of anticoagulants (principal); I48.0 Paroxysmal atrial fibrillation
CPT/HCPCS: 36415; 85610

== ENCOUNTER → 2025-04-03 10:32 | Outpatient (REF) | payer MEDICARE, OTHER, SELFPAY ==
[2025-04-03 11:49] LABS: INR 2.32; PT 25.9 Sec (11.4-14.6)
== END ==
LOC: OLABPV 10:32
PROVIDERS: ATTENDING PHYSICIAN Internal Medicine
DX: Z79.01 Long term (current) use of anticoagulants (principal)
CPT/HCPCS: 36415; 85610

== ENCOUNTER → 2025-04-24 10:34 | Outpatient (REF) | payer MEDICARE, OTHER, SELFPAY ==
[2025-04-24 11:34] LABS: INR 2.99; PT 31.5 Sec (11.4-14.6)
== END ==
LOC: OLABPV 10:34
PROVIDERS: ATTENDING PHYSICIAN Internal Medicine
DX: D68.61 Antiphospholipid syndrome (principal)
CPT/HCPCS: 36415; 85610

== ENCOUNTER → 2025-05-22 09:42 | Outpatient (REF) | payer MEDICARE, OTHER, SELFPAY ==
[2025-05-22 12:38] LABS: INR 2.70; PT 29.0 Sec (11.4-14.6)
== END ==
LOC: OLABN 09:42
PROVIDERS: ATTENDING PHYSICIAN Internal Medicine
DX: D68.61 Antiphospholipid syndrome (principal); I48.91 Unspecified atrial fibrillation
CPT/HCPCS: 36415; 85610

== ENCOUNTER → 2025-06-26 10:28 | Outpatient (REF) | payer MEDICARE, OTHER, SELFPAY ==
[2025-06-26 12:45] LABS: INR 2.80; PT 29.9 Sec (11.4-14.6)
== END ==
LOC: OLABPV 10:28
PROVIDERS: ATTENDING PHYSICIAN Internal Medicine
DX: D68.61 Antiphospholipid syndrome (principal)
CPT/HCPCS: 36415; 85610

== ENCOUNTER → 2025-07-11 13:21 | Outpatient (REF) | payer MEDICARE, OTHER, SELFPAY | LOC: RAD 13:21 | PROVIDERS: ATTENDING PHYSICIAN Podiatrist; FAMILY PHYSICIAN Internal Medicine | DX: L97.518 Non-pressure chronic ulcer of other part of right foot with other specified severity (principal) | CPT/HCPCS: 73630 ==

== ENCOUNTER → 2025-07-19 16:37 | Outpatient (REF) | payer MEDICARE, OTHER, SELFPAY ==
[2025-07-19 19:00] LABS: Urine Character Cloudy (Clear)
[2025-07-19 20:48] LABS: Urine White Cell >100 /HPF (0-5)
== END ==
LOC: REG 16:37
PROVIDERS: ATTENDING PHYSICIAN Specialist; FAMILY PHYSICIAN Internal Medicine
DX: N39.0 Urinary tract infection, site not specified (principal)
CPT/HCPCS: 81003; 81015; 87077; 87086

== ENCOUNTER → 2025-07-26 09:34 | Outpatient (REF) | payer MEDICARE, OTHER, SELFPAY ==
[2025-07-26 10:26] LABS: INR 3.68; PT 36.2 Sec (11.4-14.6)
== END ==
LOC: OLABPV 09:34
PROVIDERS: ATTENDING PHYSICIAN Internal Medicine
DX: D68.61 Antiphospholipid syndrome (principal)
CPT/HCPCS: 36415; 85610

== ENCOUNTER → 2025-08-06 11:59 | Outpatient (REF) | payer MEDICARE, OTHER, SELFPAY ==
[2025-08-06 12:13] LABS: INR 2.36; PT 25.8 Sec (11.4-14.6)
== END ==
LOC: OLABPV 11:59
PROVIDERS: ATTENDING PHYSICIAN Internal Medicine
DX: Z79.01 Long term (current) use of anticoagulants (principal)
CPT/HCPCS: 36415; 85610

== ENCOUNTER → 2025-09-04 09:41 | Outpatient (REF) | payer MEDICARE, OTHER, SELFPAY ==
[2025-09-04 10:48] LABS: INR 2.10; PT 24.1 Sec (11.4-14.6)
[2025-09-04 11:33] LABS: PSA, Total - Diagnostic 0.43 ng/ml (0.0-4.0)
== END ==
LOC: OLABPV 09:41
PROVIDERS: ATTENDING PHYSICIAN Specialist; FAMILY PHYSICIAN Internal Medicine
DX: Z79.01 Long term (current) use of anticoagulants (principal); C61 Malignant neoplasm of prostate
CPT/HCPCS: 36415; 84153; 85610

== ENCOUNTER → 2025-09-23 12:56 | Outpatient (REF) | payer MEDICARE, OTHER, SELFPAY | LOC: RAD 12:56 | PROVIDERS: ATTENDING PHYSICIAN Specialist; FAMILY PHYSICIAN Internal Medicine | DX: N39.0 Urinary tract infection, site not specified (principal); N31.9 Neuromuscular dysfunction of bladder, unspecified; C61 Malignant neoplasm of prostate | CPT/HCPCS: 76770 ==

== ENCOUNTER → 2025-09-30 14:59 | Outpatient (REF) | payer MEDICARE, OTHER, SELFPAY | LOC: RAD 14:59 | PROVIDERS: ATTENDING PHYSICIAN Podiatrist; FAMILY PHYSICIAN Internal Medicine | DX: L97.518 Non-pressure chronic ulcer of other part of right foot with other specified severity (principal) | CPT/HCPCS: 93923 ==

== ENCOUNTER → 2025-10-02 11:36 | Outpatient (REF) | payer MEDICARE, OTHER, SELFPAY ==
[2025-10-02 12:12] LABS: INR 2.29; PT 24.8 Sec (11.4-14.6)
[2025-10-02 12:36] LABS: Blood Urea Nitrogen 44 mg/dl (9-20); Calcium 9.1 mg/dl (8.4-10.2); Carbon Dioxide 21 mmol/L (22-30); Chloride 107 mmol/L (98-107); Glucose 89 mg/dl (70-99); Potassium 4.7 mmol/L (3.5-5.1); Sodium 135 mmol/L (135-145); eGFR 33.93
== END ==
LOC: OLABPV 11:36
PROVIDERS: ATTENDING PHYSICIAN Internal Medicine
DX: D68.61 Antiphospholipid syndrome (principal)
CPT/HCPCS: 36415; 80048; 85610

== ENCOUNTER 2025-10-09 18:07 | Inpatient (IN) | payer MEDICARE, OTHER, SELFPAY ==
[2025-10-09] VITALS (18 sets, daily range): BP systolic 112–169; BP diastolic 65–111; BMI 25.9
--- NOTE | 2025-10-09 15:14 | ED.GENMED ---
History of Present Illness
General
Chief Complaint: Malaise
Source: patient
Exam Limitations: none
Time Seen by Provider: 10/09/25 15:12
Nursing documentation reviewed up to this point in time: agreed with
History of Present Illness
History of Present Illness:
The patient is a pleasant 85-year-old man who reports 3 days of generalized weakness and blood in his urine. Patient denies nausea and vomiting. Patient reports right lower abdominal pain that has been constant and feels as though his abdomen is
distended. Patient denies fever.
Past History
Past History
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
ED Past Surgical History: Cardiac (PTCA with stent) and Urological (Radical prostatectomy)
Social History
Tobacco: Non-smoker
Alcohol: None
Drug: None
Personal:
Living: with family
Employment: Retired
Family History
Family History: Hypertension
Review of Systems
Review of Systems
Allergies reviewed?: Yes
Other source history: family
All Other Systems: ROS reviewed and negative except as documented in HPI and ROS
Constitutional: Reports fatigue
EENT: Reports no symptoms
Respiratory: Reports no symptoms
Cardiac: Reports no symptoms
ABD/GI: Reports abdominal pain and anorexia
: Reports bleeding
Musculoskeletal: Reports no symptoms
Skin: Reports no symptoms
Neurological: Reports no symptoms
Endocrine: Reports no symptoms
Hematologic/Lymphatic: Reports no symptoms
Psychiatric: Reports no symptoms
Phy Exam
Physical Exam
Physical Exam:
Physical Exam
General: Patient appears pale but is awake and alert
Neck: supple. no meningeal signs. Dry mucous membrane
Heart: Tachycardic
Lungs: no acute respiratory distress. clear bilaterally
Abdomen: Normal bowel sounds. Abdomen is mildly distended. Right lower quadrant tenderness
Neuro: alert and oriented. no focal neurological deficits
Skin: no rash
Psychiatric: well kept. interactive and cooperative
Extremities: no edema. no calf tenderness. negative homans. good distal pulses
Course
Orders/Labs/Results
Orders:
Orders
10/09/25 15:13
Electrocardiogram (*1) Urgent
Reason for Study: Fatigue / Weakness
EKG- Treatment ONCE
10/09/25 15:28
0.9% Sodium Chloride 1000 ml [Nss] 1,000 ml IV BOLUS
Acetaminophen [Tylenol] 1,000 mg PO NOW STA
10/09/25 15:29
CT Abd/pel Without Iv Or Oral Urgent
Comment:
Reason For Exam: hematuria, RLQ pain
10/09/25 15:53
Complete Blood Count/With Diff Urgent
Comprehensive Metabolic Panel Urgent
Ferritin Urgent
Comment: ADD ON
Iron Urgent
Lactic Acid Urgent
Total Iron Binding Urgent
Vitamin B12 Urgent
Comment: ADD ON
Blood Culture Q30M
MARYCARMEN Source: Blood/Venous
Specimen Description:
Blood Culture Q30M
MARYCARMEN Source: Blood/Venous
Specimen Description:
10/09/25 16:38
Urinalysis Reflex To Culture Urgent
Date Specimen was Collected: 10/09/25
Time Specimen was Collected: 15:58
Urine Microscopic Reflex Cult Urgent
Urine Culture Urgent
MARYCARMEN Source: U
Specimen Description:
Date Specimen was Collected: 10/09/25
Time Specimen was Collected: 15:58
10/09/25 16:47
Type+Screen Urgent
PTT Urgent
Prothrombin Time Urgent
10/09/25 16:51
Ciprofloxacin 400 mg/[id number] [Cipro 400 mg] 200 ml IV NOW
10/09/25 16:56
Ciprofloxacin 400 mg/[id number] [Cipro 400 mg] 200 ml IV NOW
10/09/25 16:57
Add On - Microbiology Routine
Tests Added?: urine culture
10/09/25 16:59
UROLOGY CONSULT Routine
Consulting Provider: Milind Krishnamurthy Jr.
Was physician already notified: Yes
10/09/25 17:02
HEMATOLOGY CONSULT Routine
Consulting Provider: Maurilio Santiago
Was physician already notified: Yes
10/09/25 17:07
INFECTIOUS DISEASE CONSULT Routine
Consulting Provider: Dolly Goodwin
Was physician already notified: Yes
10/09/25 17:17
* Blood Bank Products Urgent
'rebeka Orders: An
Blood Bank Products: *Packed RBC Leuko (PRBC's
Quantity: 2
Transfuse Today: Yes
Reason: Anemia
10/09/25 17:40
Admit/Transfer Patient As Directed
Co-Sign Provider:
Level of Care: Inpatient admission
Assign to:: ICU
Physician / Group: Raj/hospitalist
Diagnosis: hematuria
Reason for Hospitalization: hematuria
Expected length of stay greater than two midnights?: Yes
ELOS- Estimated Length of Stay in days: 4
I certify the patient meets the requirements for IP care: Yes
PRN Pain Medication Management As Directed
May give lesser potent ordered pain med per pt: Yes
preference::
Protocol:: Medication orders for pain may be administered in a
manner that supports deferring to patient preference
when the pt is:
- Requesting an ordered lesser potent pain medication.
Least to most potent pain medications are defined
as: acetaminophen < NSAID < tramadol < opioids
(morphine, oxycodone, hydromorphone).
- Requesting a lesser dose of the same medication IF
ORDERED.
- Requesting a less intrusive route of administration
if both routes are prescribed by the provider (PO <
IV).
10/09/25 17:41
Code Status As Directed
Resuscitation Status: Full Code
10/09/25 17:49
Add On- LAB Routine
Tests Added?: ferritin, TIBC, iron level, B12 level
10/09/25 17:54
Meropenem [Merrem] 2,000 mg 0.9% Sodium Chloride 100 ml [Nss] 60 ml IV NOW
10/09/25 17:56
Meropenem [Merrem] 1,000 mg IV NOW STA
Abnormal Lab Results
10/09/25 10/09/25 10/09/25
15:53 16:38 16:47
WBC 18.6 H 10^3/uL
(4.8-10.8)
RBC 2.94 L 10^6/uL
(4.70-6.10)
Hgb 8.0 L g/dL
(13.0-18.0)
Hct 24.2 L %
(39.0-52.0)
RDW 16.6 H %
(11.5-14.5)
Abs Immat Gran (auto) 0.2 H 10^3/uL
(0-0.05)
Absolute Neuts (auto) 16.6 H 10^3/uL
(1.4-6.5)
Absolute Lymphs (auto) 0.4 L 10^3/uL
(1.2-3.4)
Absolute Monos (auto) 1.4 H 10^3/uL
(0.1-0.6)
Immature Gran % 0.8 H %
(0-0.5)
Neutrophils % 89.3 H %
(42.2-75.2)
Lymphocytes % 2.0 L %
(20.5-51.1)
PT 19.5 H Sec
(11.4-14.6)
APTT 37.5 H Sec
(23.4-35.0)
Sodium 134 L mmol/L
(135-145)
Carbon Dioxide 17 L mmol/L
(22-30)
BUN 78 H mg/dl
(9-20)
Creatinine 2.6 H mg/dL
(0.7-1.3)
Glucose 117 H mg/dl
(70-99)
Albumin 3.2 L g/dl
(3.5-5.0)
Ur Occult Blood Reflex 4+ A
(Negative)
Leukocyte Esterase Rfl 3+ A
(Negative)
Urine WBC (Reflex) >100 A /HPF
(0-5)
Urine Bacteria (Reflex) Many A
(Negative)
Urine Albumin (Reflex) 3+ A
(Neg - Trace)
10/09/25 15:53
10/09/25 15:53
Vital Signs
Initial and Last Documented VS:
Initial Vital Signs
Temp Pulse Resp BP Pulse Ox
98.2 F 114 16 113/65 98
10/09/25 13:24 10/09/25 13:24 10/09/25 13:24 10/09/25 13:24 10/09/25 13:24
Last Documented Vital Signs
Temp Pulse Resp BP Pulse Ox
98.2 F 117 19 112/65 95
10/09/25 13:24 10/09/25 17:30 10/09/25 17:30 10/09/25 17:00 10/09/25 17:30
MDM/Problems Addressed
Differential Diagnosis Includes:
Acute UTI, infected kidney stone, acute appendicitis
MDM/Problems Addressed:
Patient presents with acute right lower abdominal pain, fatigue and blood in his urine
Chronic conditions affecting care: Arrhythmia
Acute Exacerbation and/or Progression of Chronic Illness:
Patient may have acutely elevated heart rate due to chronic A-fib
Acute Exacerbation and/or Progression of Chronic Illness: Arrhythmia
*Radiology
Radiology exam reviewed: radiology read reviewed
*Pulse Oximetry
SaO2: 98
Oxygen Mode of Delivery: Room air
Patient hypoxic: no
*EKG
Interpreted by ED Provider?: Yes
Interpretation: abnormal
Comparison EKG: changes noted (More tachycardic)
Rate: tachycardiac
Rhythm: a-fib
[place]: left axis deviation
Interval: normal interval
QRS Pattern: normal QRS
Ischemia: non-specific ST changes
*Arranger Assembler Interpretation
Rate: tachycardiac
Interpretation: abnormal
Rhythm: a-fib
*Critical Care Note
Total Time (30-74mins, 75-104mins- exclusive of procedures): 56 minutes
comment:
57 minutes of critical care given to patient including frequent reassessments of his mental status, discussing risks and benefits of blood transfusion, going over CT report, and discussing the case with hospitalist and urologist.
Data Reviewed
Review of Other/Old Records Reveals: Discharge Summary (Hospitalist discharge summary reviewed from 2023 when patient had acute on chronic blood loss anemia from lower GI bleed)
Source: patient and family
Patient Management
Social determinants of health affecting care: Living situation and Strong social support
Discussion with other providers: Hospitalist and Other (Hematology, urology)
Escalation/DeEscalation of care consider admission/obs:
Patient will be admitted for likely pyelonephritis and blood loss anemia
ED Attending Note
-
Portions of this chart may have been created with voice recognition software.� Occasional wrong word or��sound alike� substitutions may have occurred due to the inherent limitations of voice recognition software.
Discharge Plan
Departure
Patient Disposition: Admit
Date of Disposition: 10/09/25
Time of Disposition: 16:52
Admit to: Telemetry
Presentation/result/management discussed w/ accepting MD/DO: Hospitalist
Patient with high blood pressure during this ER visit?: No
Condition: Good
Covid-19: Not Applicable
Discharge Problem:
Atrial fibrillation with RVR, Acute blood loss anemia, Acute pyelonephritis
Prescriptions:
No Action
aspirin 81 MG tablet,delayed release (DR/EC)
81 mg PO DAILY
atorvastatin 40 MG tablet
40 mg PO HS
therapeutic multivitamin Tablet
1 tab PO DAILY
methenamine hippurate 1 gram Tablet
1 g PO BID
omeprazole 20 mg Capsule,Delayed Release(Dr/Ec)
20 mg PO Q48H@0800
metoprolol succinate 25 mg Tablet Extended Release 24 Hr
25 mg PO DAILY
irbesartan 150 mg Tablet
150 mg PO BID
warfarin 5 mg Tablet
5 mg PO SUMOTUTHFRSA@2200
warfarin 5 mg Tablet
7.5 mg PO WE@2200
Pepcid AC
1 tab PO Q48H@0800
Patient Comments:
01/31/2024, pt. unsure of strength.
Unknown Eye Drops
1 drp RIGHT EYE .TAPER
Patient Comments:
01/31/2024, pt. applies one drop into right eye BID this week; then, starting next week, he will place one drop into right eye daily for a week. 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
surgery.
hydralazine 10 mg Tablet
10 mg PO BID Qty: 60 0RF
Referrals:
Harsh Becker MD [Family Provider, Internal Medicine]
Interventions
Interventions:
*General Assessment Last Done: 10/09/25 16:07
*Neglect/Abuse Screening Last Done: 10/09/25 13:24
*ED COVID-19 Vaccine History Last Done: 10/09/25 16:07
*ED Influenza Vaccine History Last Done: 10/09/25 16:07
[facility] Risk Assessment Tool Last Done: 10/09/25 16:07
*Risk Screen - Suicide (C-SSRS) Last Done: 10/09/25 13:24
Discharge Date and Time
Print Language: BOTSWANAN
[2025-10-09] MEDS: TYLENOL 1000 MG PO (16:04)
[2025-10-09] MEDS: NSS 1000 IV ×2 (16:05→21:12)
[2025-10-09 16:08] LABS: Hematocrit 24.2 % (39.0-52.0); Hemoglobin 8.0 g/dL (13.0-18.0); Mean Corp Hgb Conc. 33.1 g/dL (33.0-37.0); Mean Corpuscular Volume 82.3 fL (80.0-94.0); Nucleated Red Blood Cells % 0 % (-); Platelet Count 145 10^3/uL (130-400); Red Cell Dist. Width 16.6 % (11.5-14.5)
[2025-10-09 16:36] LABS: ALT (SGPT) 36 U/L (0-50); AST (SGOT) 48 U/L (17-59); Albumin 3.2 g/dl (3.5-5.0); Alkaline Phosphatase 108 U/L (38-126); Blood Urea Nitrogen 78 mg/dl (9-20); Calcium 8.7 mg/dl (8.4-10.2); Carbon Dioxide 17 mmol/L (22-30); Chloride 106 mmol/L (98-107); Glucose 117 mg/dl (70-99); Potassium 4.5 mmol/L (3.5-5.1); Sodium 134 mmol/L (135-145); Total Protein 6.3 g/dl (6.3-8.2); eGFR 23.29
--- NOTE | 2025-10-09 16:53 | HPS.HSE ---
Family Physician
-
Family Physician: Harsh Becker
Chief Complaint
-
hematuria
History of Present Illness
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
Hyperlipidemia, Prostate cancer with radical prostatectomy, h/o recurrent urinary tract infections, cataract extraction right eye 01/12/2024, left eye 12/29/2023; p/w generalized weakness and blood in his urine ongoing for about 3 days.
He also reported right lower abdominal pain that has been constant and distended abdomen.
Medical History
Past Medical History
Past Medical History: Reports Other
Additional Past Medical History:
spinal artery occlusion with CVA and lower extremity paralysis, uses a walker and wheelchair
CAD status post PTCA with stent October 2006,
prostate cancer/radical prostatectomy
HTN
HLD,
cataract extraction right eye 01/12/2024, left eye 12/29/2023
Past Surgical History: Reports Other
Additional Past Surgical History:
cataract extraction right eye 01/12/2024, left eye 12/29/2023
Radical prostatectomy secondary to prostate cancer
Social History
Tobacco: Non-smoker
Alcohol: Occasional (socially )
Drug: None
Personal:
Living: With Family ( Carley Alba)
Employment: Retired
Family History
Family History: Other (Mother age 98 old age, father CVA)
Allergies / Home Medications
Allergies reflects when Allergies were last updated in [facility].
Home Medications with original date entered in [facility]
Allergy/Medication List:
Medications on admission are unable to be verified or confirmed at this time.
Review of Systems
-
Constitutional: Denies Fever
Abdomen/GI: Reports Abdominal Pain (Mild RLQ pain)
: Reports See HPI and Bleeding (no clot, mixed with urine per pt )
Physical Exam
Vital Signs
Vital Signs
Temp Pulse Resp BP Pulse Ox
36.8 C 127 18 135/88 95
10/09/25 13:24 10/09/25 16:45 10/09/25 16:45 10/09/25 15:47 10/09/25 16:45
Physical Exam
General: Well Developed, Well Nourished, No Apparent Distress, Comfortable and Conversant
HEENT: NormoCephalic, Moist mucous membranes and Atraumatic
Respiratory: Clear and Non Labored Respirations; No Accessory Resp Muscle Use
Cardiac: S1/S2 and Regular Rhythm; No Murmur or Rub
GI: Soft, Non Tender, Non Distended and Normal Bowel Sounds; No Organomegaly
Rectal: Deferred by Provider
Musculoskeletal: No Clubbing, No Cyanosis and No Edema
Skin: No Rash
Neuro: Awake and Alert
Psych: Calm and Intact Judgment/Insight
Laboratory Results
-
10/09/25 15:53
10/09/25 15:53
Laboratory Results
Lactic Acid 1.2 mmol/L (0.7-2.0) 10/09/25 15:53
Total Bilirubin 1.0 mg/dl (0.2-1.3) 10/09/25 15:53
AST 48 U/L (17-59) 10/09/25 15:53
ALT 36 U/L (0-50) 10/09/25 15:53
Alkaline Phosphatase 108 U/L (38-126) 10/09/25 15:53
Data Reviewed
-
CT Scan: Report Reviewed by me, Discussed with Physician, Discussed with Patient and Discussed with Family
Lab Data: Labs Reviewed by me
Impression/Plan
-
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
Hyperlipidemia, Prostate cancer with radical prostatectomy, h/o recurrent urinary tract infections, cataract extraction right eye 01/12/2024, left eye 12/29/2023; p/w generalized weakness and blood in his urine ongoing for about 3 days.
He also reported right lower abdominal pain that has been constant and distended abdomen.
CT AP:
Severe right hydronephrosis appears complicated by hemorrhage. There is a large amount of right perinephric soft tissue stranding. There is severe renal cortical atrophy. No obstructing calculus identified. No right ureteral dilatation. Advise
further evaluation/follow-up ureteroscopy.
Stable mild left hydronephrosis without renal or ureteral calculus.
Urinary bladder is empty and collapsed.
Small right pleural effusion and probable right middle lobe and right lower lobe pneumonia.
A/P:
# Acute blood loss anemia with hematuria
# generalized weakness due to above
# Leukocytosis with possible sepsis POA with complicated UTI
s/p 1L NSS, cont IVF NSS at 80 cc/hr
CT noted right hydronephrosis with hemorrhage
Hgb 8 from baseline 12.
Transfuse 2 units PRBC, follow H/H
Check iron panel
Uro consulted
INR at 1.68, d/w heme Dr Santiago, given INR low, would not give FFP or vit K for reversal, recc to monitor off coumadin
hold prior to admission Coumadin
Follow UA/urine culture, follow blood culture
Cover with empiric Merrem for now
ID CS for suspected complicated UTI/pyelo
# Suspect post renal MAHOGANY in setting of right hydronephrosis
SCr 2.6 from baseline 1.9?
Monitor SCr
IVF as above
# Parox A-fib on Coumadin NUTRITION SPECIALIST
# h/o antiphospholipid antibody syndrome
INR at 1.68 on admission
Checking daily INR
Hold NUTRITION SPECIALIST Coumadin with current hematuria
Consult heme
# GERD
IV PPI for now
# Essential HTN
Hold NUTRITION SPECIALIST BP meds
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
# chronic ambulatory dysfunction, uses wheelchair at baseline
PT OT when able
# CAD with stent October 2006
Hold NUTRITION SPECIALIST ASA
can cont statin
# HLD
continue statin
# Prostate cancer with radical prostatectomy
# Hx UTIs
NUTRITION SPECIALIST on Hiprex 1 g p.o. twice daily
# cataract extraction right eye 01/12/2024, left eye 12/29/2023
DVT ppx: SCD
FC
CC time 40 min
DW all consultants, Uro, heme, ID, Metal Treater
[2025-10-09 17:03] LABS: INR 1.68; PT 19.5 Sec (11.4-14.6)
[2025-10-09 17:04] LABS: APTT 37.5 Sec (23.4-35.0)
[2025-10-09 17:06] LABS: Urine Character Cloudy (Clear)
[2025-10-09] MEDS: CIPRO 400 MG 200 IV (17:14)
[2025-10-09 17:43] LABS: Urine White Cell >100 /HPF (0-5)
--- NOTE | 2025-10-09 18:08 | CON.MD ---
Consultation - Medical
-
see dictated not
pt followed by dr resendiz
hx of RPP and subsequent xrt- last psa 0.4
also has chronic incont- combo of surgery/xrt and NGB from spinal infarct
has had known hydro for some time- but renal function preserved- although recent u/s showed severe R and moderat lef thydro with elevated cr- plan was to observe/repeat studies
also recent UTi's including recent esbl
on chronic coumadin for afib and antiphospholipid antibody
beginning tuesday- pt developed malaise/weakness and confusion- urine was bloody
continued to not feel well- brought into ER tonight
hgb low/cr elevated/wbc elevated
CT shows very abnl kidney- appears to have had renal bleed- ? into collecting system vs parenchyma- note u/s at the beginning of the month showed hydro but no mass
pt clinically stable at this time
INR only 1.6
witnessed void clear
plan
no active hematuria or need for taylor- observe
antibx for suspected UTI- check ucx
renal bleed- ? source- support with transfusions
major issue is blood thinners- hold for now- no need for reversal given INR- heme to consult
complicated and high risk situation- there is no indication for intervention at this time
will follow closely
Consultation
-
Date/Time Consultation Requested: 10/09/25 at 4:30pm
Date/Time Consultation Performed: 09/29/25 at 6pm
Requesting Provider: ER
Performing Provider: Dr Krishnamurthy
Reason for Consultation: hematuria
[2025-10-09 18:20] LABS: Iron < 20 ug/dl (49-181)
[2025-10-09] MEDS: MERREM 1000 MG IV (18:20)
[2025-10-09 18:27] LABS: Total Iron Binding Capacity 282 ug/dl (261-462)
[2025-10-09 18:55] LABS: Ferritin 147.0 ng/ml (17.9-464.0)
[2025-10-09 19:09] LABS: Vitamin B12 545 pg/ml (239-931)
[2025-10-09] MEDS: PROTONIX IV 40 MG IV (21:17)
[2025-10-09] MEDS: NSS (PRESERVATIVE FREE) 10 ML IV (21:17)
[2025-10-10] VITALS (26 sets, daily range): BP systolic 134–180; BP diastolic 88–121
[2025-10-10] MEDS: TOPROL XL 25 MG PO ×2 (00:15→09:32)
[2025-10-10 00:44] LABS: Hematocrit 25.8 % (39.0-52.0); Hemoglobin 8.5 g/dL (13.0-18.0)
--- NOTE | 2025-10-10 00:54 | PTCARENOTE ---
Pt admit from ED. Oriented. DIALLO, weakness in moving LE d/t previous neuro hx. CC on pt collecting yellow urine. Incontinent stool small amount. IV placed. HR afib 100s-120s - pt states he has not taken prescribed metoprolol since tuesday. Spoke with
ESCOBAR [place], pt's usual dose ordered and administered (see DEC). IVF as ordered. PRBC transfusing. RA POX 96%. q2h turns.
[2025-10-10 04:17] LABS: Hematocrit 26.3 % (39.0-52.0); Hemoglobin 8.8 g/dL (13.0-18.0); Mean Corp Hgb Conc. 33.5 g/dL (33.0-37.0); Mean Corpuscular Volume 82.2 fL (80.0-94.0); Platelet Count 128 10^3/uL (130-400); Red Cell Dist. Width 15.7 % (11.5-14.5)
[2025-10-10 04:20] LABS: INR 1.66; PT 19.3 Sec (11.4-14.6)
[2025-10-10 04:35] LABS: Blood Urea Nitrogen 70 mg/dl (9-20); Calcium 8.3 mg/dl (8.4-10.2); Carbon Dioxide 18 mmol/L (22-30); Chloride 107 mmol/L (98-107); Estimated Creatinine Clearance 26 ml/min; Glucose 98 mg/dl (70-99); Magnesium 2.3 mg/dl (1.6-2.3); Potassium 4.2 mmol/L (3.5-5.1); Sodium 133 mmol/L (135-145); eGFR 28.46
[2025-10-10] MEDS: STERILE WATER FOR INJECTION 20 ML IV (06:21)
[2025-10-10] MEDS: MERREM 1000 MG IV (06:21)
[2025-10-10] MEDS: TYLENOL 1000 MG PO (06:30)
--- NOTE | 2025-10-10 06:45 | PTCARENOTE ---
AM labs drawn and sent. Pain management for RLQ abd pain. Pt reports as 'dull', same as it has been. Worsens with movement. No further changes in assessment.
--- NOTE | 2025-10-10 07:10 | PTCARENOTE ---
Received patient in sleep, arousable to voice, A&Ox4, Afib, BP WNL, on RA, NPO, external male purewick in place, no blood in urine overnight per handoff report.
--- NOTE | 2025-10-10 07:46 | W.PN.URO.CBU ---
Today's Communication / Plan
-
trend hgb and cr level
awiaitn ucx
no urologic intervention planned at this time
Assessment / Plan
-
right renal bleed- etiology uncertain at this time
hx of prostate cancer
hx of UTI
NGB and chronic incontinence
chronic hydro and renal insuff
overall pt improved
hgb up with 2 units- tract for stability
no sig hematuria
awaiting ucx
renal function improving toward his outpt value- observe for now
Diagnosis
-
Date of Service: October 10, 2025
-
Patient Diagnosis:
right renal bleed
prostate cancer
chronic hydronephrosis and renal insuff
UTI
NGB and incontinence
Subjective
-
pt feels better
some abd pain- controlled with tylenol
incontinent- urine clear
hgb up after 2 units
cr down to 2.2 (was 1.9 at the start of the month)
Objective
-
Vital Signs
Temp Pulse Resp BP Pulse Ox
98.3 F 99 21 162/108 95
10/10/25 07:16 10/10/25 06:30 10/10/25 06:30 10/10/25 06:00 10/10/25 06:30
Intake and Output
10/09/25 10/10/25 10/11/25
06:59 06:59 06:59
Intake Total 1520 / 1520
Output Total 650 / 650
Balance 870 / 870
Intake:
IV fluids (Total) 720 / 720
Nss 1,000 ml @ 80 mls/hr IV . 720 / 720
[id number] Rx#:[id number]
IV piggybacks 300 / 300
Blood Product Amount Infused ( 500 / 500
mL)
Packed Rbc Leukoreduced Unit 250 / 250
[id number]
Packed Rbc Leukoreduced Unit 250 / 250
[id number]
Output:
Urine, Voided 650 / 650
Laboratory Results
10/10/25 04:01
10/10/25 04:01
Review of Systems
-
Constitutional: Fatigue
Respiratory: No Symptoms
Cardiac: No Symptoms
Abdomen/GI: Abdominal Pain
: Incontinence
Physical Exam
-
General - no acute distress
Abdomen - soft, non-tender
Genitalia - normal
--- NOTE | 2025-10-10 08:10 | CON.ID ---
Consultation
-
Date/Time Consultation Requested: 10/09/25 17:07
Date/Time Consultation Performed: 10/10/25 8:10
Requesting Provider: Dr Anthony
Performing Provider: Dr Goodwin
Reason for Consultation: hematuria
Chief Complaint / Past History
Chief Complaint
hematuria
History of Present Illness
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 He also
reported right lower abdominal pain that has been constant and distended abdomen. There was some intermittent confusion. He has known bilateral hydronephrosis with preserved renal function being followed by his urologist. No taylor present on
arrival.
Since arrival here he has been afebrile, bp stable, WBC initially 18.6 today 14.6, hgb 8.0 down from 12.0 over a year ago, L shift present on arrival, Na 134, cr 2.6 from a baseline of 1.9 today 2.2, lactic acid 1.2, LFTs wnl, UA >100 wbc/hpf with
many bacteria, CT a/p 10/09 'Severe right hydronephrosis appears complicated by hemorrhage. There is a large amount of right perinephric soft tissue stranding. There is severe renal cortical atrophy. No obstructing calculus identified. No right
ureteral dilatation. Advise further evaluation/follow-up ureteroscopy. Stable mild left hydronephrosis without renal or ureteral calculus.' patient had a dose of ciprofloxacin 400 mg IV then switched to meropenem 1000 mg IV q 12 hours, ID is
consulted for assistance with management. Hematuria resolved overnight per RN/.
Past History
Additional Past Medical History:
1. Prostate cancer.
2. Hypertension.
3. Hyperlipidemia.
4. Coronary artery disease.
5. Antiphospholipid antibody syndrome.
6. History of spinal infarct with paraplegia.
7. History of coronary artery disease.
8. Neurogenic bladder.
9. Recurrent UTI.
10. AFib.
11. Chronic anemia.
Additional Past Surgical History:
1. Prostate cancer.
2. Left ureteroscopy.
3. Cataract repair.
Allergy History:
amoxicillin (From Augmentin) Allergy (Verified 01/31/24 10:50)
Rash
clavulanic acid (From Augmentin) Allergy (Verified 01/31/24 10:50)
Rash
Sulfa (Sulfonamide Antibiotics) Allergy (Verified 01/31/24 10:50)
Rash
Medications Reviewed: Yes
Social History
Tobacco: Non-Smoker
Alcohol: Occasional
Personal:
Family History
Family History: Not Pertinent
Review of Systems
Review of Systems
Constitutional: Denies Fever
Abdomen/GI: Reports Abdominal Pain (Mild RLQ pain)
: Reports See HPI and Bleeding (no clot, mixed with urine per pt )
Vital Signs
Temp Pulse Resp BP Pulse Ox
98.3 F 99 21 162/108 95
10/10/25 07:16 10/10/25 06:30 10/10/25 06:30 10/10/25 06:00 10/10/25 06:30
Physical Exam
Physical Exam
Constitutional: No Acute Distress
Cardiovascular: Regular Rate and S1/S2; Negative Murmur or Rub
Pulmonary: Clear and Symmetric; Negative Wheezes, Rales or Rhonchi
Gastrointestinal: Soft, Non Tender, Non Distended and Normal Bowel Sounds
Genito-Urinary: Negative Suprapubic Tenderness or CVA Tenderness
Skin: Warm and Dry; Negative Rash or Jaundice
Neurological: Awake
Lab / Diagnostic Study Results
10/10/25 04:01
10/10/25 04:01
Abs Immat Gran (auto) 0.2 10^3/uL (0-0.05) H 10/09/25 15:53
Absolute Neuts (auto) 16.6 10^3/uL (1.4-6.5) H 10/09/25 15:53
Absolute Lymphs (auto) 0.4 10^3/uL (1.2-3.4) L 10/09/25 15:53
Absolute Monos (auto) 1.4 10^3/uL (0.1-0.6) H 10/09/25 15:53
Absolute Basos (auto) 0.0 10^3/uL (0-0.2) 10/09/25 15:53
Immature Gran % 0.8 % (0-0.5) H 10/09/25 15:53
Neutrophils % 89.3 % (42.2-75.2) H 10/09/25 15:53
Lymphocytes % 2.0 % (20.5-51.1) L 10/09/25 15:53
Monocytes % 7.6 % (1.7-9.3) 10/09/25 15:53
Eosinophils % 0.1 % (0-6) 10/09/25 15:53
Basophils % 0.2 % (0-2) 10/09/25 15:53
PT 19.3 Sec (11.4-14.6) H 10/10/25 04:01
INR 1.66 10/10/25 04:01
Lactic Acid 1.2 mmol/L (0.7-2.0) 10/09/25 15:53
Ur Squamous Epith Cells /LPF (Few) 10/09/25 16:38
Microbiology Results
Micro:
10/09/25 16:38 Urine Culture - Pending
Urine
10/09/25 15:53 Blood Culture - Pending
Blood/Venous
10/09/25 15:53 Blood Culture - Pending
Blood/Venous
Assessment / Plan
Possible UTI
Right Renal Bleed
H/o prostate cancer with neurogenic bladder
chronic incontinence
chronic hydronephrosis
H/o colonization with ESBL E coli
Reported allergies to augmentin and sulfa - both rash
- urine culture in progress, UA with gross pyuria
- blood cultures x2 are in progress
- QTc 444
- continue on meropenem dose adjusted to 500 mg IV q8 hours
- trend renal function
- follow hgb
--- NOTE | 2025-10-10 08:20 | CON.ONC ---
Consultation
-
Date Consultation Requested: 10/09/25
Date Consultation Performed: 10/10/25
Requesting Provider: Raj
Performing Provider: Pamela
Reason for Consultation: Kidney bleeding on anticoagulation
Impression
Impression
Acute blood loss anemia
Hematuria/right renal bleed- etiology uncertain at this time
Mildly elevated INR related to chronic anticoagulation
Paroxysmal atrial fibrillation
Antiphospholipid antibody syndrome
hx of prostate cancer
hx of recurrent UTI
Plan
Plan
Hold warfarin without FFP or vitamin K reversal.
Monitor clinically with serial hemoglobins and urologic surveillance of renal bleed
INR approximately 1.6-1.7 is just mildly elevated and ultimately once we sort out the etiology for renal bleed, anticoagulation management going forward will likely be necessary. Currently with active bleeding, anticoagulation risks outweigh
benefits even with antiphospholipid antibody syndrome history.
Monitor H&H closely. Monitor INR daily.
Discussed with urology. And attending Dr. Anthony.
Patient History
History of Present Illness
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
h/o recurrent urinary tract infections who p/w generalized weakness and blood in his urine ongoing for about 3 days since Tuesday. He takes warfarin for both paroxysmal atrial fibrillation and antiphospholipid antibody syndrome but has not taken a
dose since Tuesday.
He also reported right lower abdominal pain that has been constant and distended abdomen. Had a CT AP that showed severe right hydronephrosis complicated by hemorrhage without obstructing calculus identified. No right ureteral dilatation. Initial I
was consulted and called about giving FFP but subsequent INR results returned with an INR 1.68 and decision was made to hold off on anticoagulation reversal in light of history of antiphospholipid antibody syndrome. Patient was transfused 2 units
of PRBCs and treated with antibiotics with plans for observation. This morning patient is doing well and his Hgb has stabilized and is actually improved from 8.0-8.8. Of course this was following transfusion.
Past-Medical/Surgical History
PMH:
spinal artery occlusion with CVA and lower extremity paralysis, uses a walker and wheelchair
CAD status post PTCA with stent October 2006
Antiphospholipid antibody syndrome on chronic warfarin therapy managed by Dr. Keith Becker his PCP
Paroxysmal atrial fibrillation
prostate cancer/radical prostatectomy
HTN
HLD
GERD
Recurrent UTI
cataract extraction right eye 01/12/2024, left eye 12/29/2023
PSH:
cataract extraction right eye 01/12/2024, left eye 12/29/2023
Radical prostatectomy secondary to prostate cancer
SH:
Tobacco: Non-smoker
Alcohol: Occasional (socially)
Drug: None
Personal:
Living: With Family ( Carley Alba)
Employment: Retired
FH:
Mother age 98 old age, father CVA
Patient Medication
�Medication �Instructions �Recorded �Confirmed �Last Taken �Type
aspirin 81 mg tablet,delayed 81 mg PO DAILY Blood Clot 09/23/12 10/09/25 01/30/24 History
release Prevention/Tx
atorvastatin 40 mg tablet 40 mg PO HS High Cholesterol 08/20/20 10/09/25 01/30/24 History
irbesartan 150 mg tablet 150 mg PO BID High Cholesterol 08/26/23 10/09/25 01/31/24 History
methenamine hippurate 1 gram tablet 1 g PO BID Prevent UTI 08/26/23 10/09/25 01/31/24 History
metoprolol succinate 25 mg 25 mg PO DAILY Blood Pressure 08/26/23 10/09/25 10/07/25 History
tablet,extended release 24 hr
omeprazole 20 mg capsule,delayed 20 mg PO DAILY GERD 08/26/23 10/09/25 01/30/24 History
release
therapeutic multivitamin 1 tab PO DAILY Supplement 08/26/23 10/09/25 01/31/24 History
Pepcid AC 1 tab PO DAILY Gastrointestinal 01/31/24 10/09/25 01/29/24 History
Issue
hydralazine 10 mg tablet 10 mg PO BID #60 tabs 02/05/24 10/09/25 Unknown Rx
warfarin 5 mg tablet 5 mg PO DAILY 10/09/25 10/09/25 Unknown History
Active Medications
Generic Name Dose Route Start Last Admin
Trade Name Freq PRN Reason Stop Dose Admin
Acetaminophen 650 mg 10/10/25 06:20
Acetaminophen 325 Mg Tablet PO 11/07/25 06:19
Q4HPRN PRN
mild pain/GAINES/temp>100.5
Bisacodyl 10 mg 10/09/25 20:42
Bisacodyl 10 Mg Rectal Suppository RECTAL 11/06/25 20:41
[id number] PRN
constipation
Sodium Chloride 1,000 mls @ 80 mls/hr 10/09/25 20:42 10/09/25 21:12
Nss IV 1,000 mls
.[id number] WM Administration
Meropenem 1,000 mg 10/10/25 06:00 10/10/25 06:21
Meropenem 1,000 Mg/20 Ml Vial IV 1,000 mg
Q12H WM Administration
Ondansetron HCl 4 mg 10/09/25 20:42
Ondansetron 4 Mg/2 Ml Vial IV 11/06/25 20:41
Q6HPRN PRN
nausea and vomiting
Pantoprazole Sodium 40 mg 10/09/25 21:00 10/09/25 21:17
Pantoprazole Sodium 40 Mg/10 Ml Vial IV 11/06/25 20:59 40 mg
DAILY WM Administration
Polyethylene Glycol 17 grams 10/09/25 20:42
Polyethylene Glycol Powder 17 Grams Packet PO 11/06/25 20:41
DAILYPRN PRN
constipation
Senna/Docusate Sodium 1 tablet 10/09/25 20:42
Docusate W/Senna (Syl-Colace) Tablet PO 11/06/25 20:41
BIDPRN PRN
constipation
Sodium Chloride 10 ml 10/09/25 21:00 10/09/25 21:17
Sodium Chloride 0.9% (Preservative Free) 10 Ml Vial IV 11/06/25 20:59 10 ml
DAILY WM Administration
Sodium Chloride 0 flush 10/09/25 23:00
Sodium Chloride 0.9% (Flush) Syringe IV 11/06/25 22:59
PER PROTOCOL WM
Sterile Water 20 ml 10/10/25 06:00 10/10/25 06:21
Sterile Water For Injection 20 Ml Vial IV 11/07/25 05:59 20 ml
Q12H WM Administration
Physical Exam
-
General: Well Developed, Well Nourished and No Apparent Distress
HEENT: Negative Jaundice
Cardiology: Normal Sinus Rhythm, S1 and S2
Pulmonary: Clear
GI: Soft
Musculoskeletal: No Edema
Extremities: No C/C/E
Labs
Lab Results
WBC 14.6 10^3/uL (4.8-10.8) H 10/10/25 04:01
RBC 3.20 10^6/uL (4.70-6.10) L 10/10/25 04:01
Hgb 8.8 g/dL (13.0-18.0) L 10/10/25 04:01
Hct 26.3 % (39.0-52.0) L 10/10/25 04:01
MCV 82.2 fL (80.0-94.0) 10/10/25 04:01
MCH 27.5 pg (27.0-31.0) 10/10/25 04:01
MCHC 33.5 g/dL (33.0-37.0) 10/10/25 04:01
RDW 15.7 % (11.5-14.5) H 10/10/25 04:01
Plt Count 128 10^3/uL (130-400) L 10/10/25 04:01
MPV 10.6 fL (7.4-10.4) H 10/10/25 04:01
Abs Immat Gran (auto) 0.2 10^3/uL (0-0.05) H 10/09/25 15:53
Absolute Neuts (auto) 16.6 10^3/uL (1.4-6.5) H 10/09/25 15:53
Absolute Lymphs (auto) 0.4 10^3/uL (1.2-3.4) L 10/09/25 15:53
Absolute Monos (auto) 1.4 10^3/uL (0.1-0.6) H 10/09/25 15:53
Absolute Eos (auto) 0.0 10^3/uL (0-0.7) 10/09/25 15:53
Absolute Basos (auto) 0.0 10^3/uL (0-0.2) 10/09/25 15:53
Immature Gran % 0.8 % (0-0.5) H 10/09/25 15:53
Neutrophils % 89.3 % (42.2-75.2) H 10/09/25 15:53
Lymphocytes % 2.0 % (20.5-51.1) L 10/09/25 15:53
Monocytes % 7.6 % (1.7-9.3) 10/09/25 15:53
Eosinophils % 0.1 % (0-6) 10/09/25 15:53
Basophils % 0.2 % (0-2) 10/09/25 15:53
Creatinine 2.2 mg/dL (0.7-1.3) H 10/10/25 04:01
Vital Signs
Vital Signs
Temp Pulse Resp BP Pulse Ox
98.3 F 99 21 162/108 95
10/10/25 07:16 10/10/25 06:30 10/10/25 06:30 10/10/25 06:00 10/10/25 06:30
[2025-10-10] MEDS: NSS 1000 IV ×2 (08:40→21:18)
[2025-10-10] MEDS: PROTONIX IV 40 MG IV (08:41)
[2025-10-10] MEDS: NSS (PRESERVATIVE FREE) 10 ML IV (08:42)
--- NOTE | 2025-10-10 09:00 | W.PN.HOSP.TC ---
Today's Communication/Plan
-
see A/P
Assessment / Plan
Assessment / Plan
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
Hyperlipidemia, Prostate cancer with radical prostatectomy, h/o recurrent urinary tract infections, cataract extraction right eye 01/12/2024, left eye 12/29/2023; p/w generalized weakness and blood in his urine ongoing for about 3 days.
He also reported right lower abdominal pain that has been constant and distended abdomen.
CT AP:
Severe right hydronephrosis appears complicated by hemorrhage. There is a large amount of right perinephric soft tissue stranding. There is severe renal cortical atrophy. No obstructing calculus identified. No right ureteral dilatation. Advise
further evaluation/follow-up ureteroscopy.
Stable mild left hydronephrosis without renal or ureteral calculus.
Urinary bladder is empty and collapsed.
Small right pleural effusion and probable right middle lobe and right lower lobe pneumonia.
A/P:
# Acute blood loss anemia with hematuria
# generalized weakness due to above
# Leukocytosis with possible sepsis POA with complicated UTI
s/p 1L NSS, cont IVF NSS at 80 cc/hr
CT noted right hydronephrosis with hemorrhage
Hgb 8 from baseline 12. Transfused 2 units PRBC, Hgb today at 8.8
iron panel reviewed
d/w heme Dr Santiago, given INR low at 1.68 on admission, would not give FFP or vit K for reversal, recc to monitor off Coumadin
Cont to hold prior to admission Coumadin
Follow UA/urine culture, follow blood culture
Cover with empiric Merrem for now
Monitor hematuria with condom cath per Uro- hematuria appear to have resolved
No plan for surgical intervention per Uro
Start clears, ADAT
Uro on board
ID on board
# Suspect post renal MAHOGANY in setting of right hydronephrosis
SCr 2.6 -> 2.2, from baseline 1.9?
Cont gentle IVF NSS at 80 cc/hr
Monitor SCr
Cont to hold RACE STARTER irbesartan
# Parox A-fib on Coumadin RACE STARTER
# h/o antiphospholipid antibody syndrome
INR at 1.68 on admission -> 1.66 today
Checking daily INR
Cont to hold RACE STARTER Coumadin 2/2 hematuria
heme on board
# GERD
IV PPI for now
# Essential HTN
resume RACE STARTER Toprol and hydralazine with hold parameter
Monitor BP
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
# chronic ambulatory dysfunction, uses wheelchair at baseline
PT OT when able
# CAD with stent October 2006
Hold RACE STARTER ASA
can cont statin
# HLD
continue statin
# Prostate cancer with radical prostatectomy
# Hx UTIs
RACE STARTER on Hiprex 1 g p.o. twice daily
# cataract extraction right eye 01/12/2024, left eye 12/29/2023
DVT ppx: SCD
FC
DW RN
Anticipated Discharge: > 48 hours
Subjective/Interval History
-
Date of Service: October 10, 2025
Objective Data
-
Labs:
Laboratory Results
10/10/25 10/10/25
00:27 04:01
WBC 14.6 H
Hgb 8.5 L 8.8 L
Hct 25.8 L 26.3 L
Plt Count 128 L
PT 19.3 H
INR 1.66
Sodium 133 L
Potassium 4.2
Chloride 107
Carbon Dioxide 18 L
BUN 70 H
Creatinine 2.2 H
Glucose 98
Calcium 8.3 L
Vital Signs:
Vital Signs
Temp Pulse Resp BP Pulse Ox
36.8 C 99 21 162/108 95
10/10/25 07:16 10/10/25 06:30 10/10/25 06:30 10/10/25 06:00 10/10/25 06:30
I&O
10/09/25 10/10/25 10/11/25
06:59 06:59 06:59
Intake Total 1520 / 1600 160 / 160
Output Total 650 / 650
Balance 870 / 950 160 / 160
Review of Systems
-
History Source: Patient
All other systems: Reviewed and negative
Genitourinary: Denies Bleeding
Physical Exam
-
General: Well Developed, Well Nourished, No Apparent Distress, Comfortable and Conversant
HEENT: Normocephalic and Atraumatic
Respiratory: Clear to Auscultation and Non Labored Respirations; Negative Wheezes, Rales or Accessory Resp Muscle Use
Cardiac: Regular Rhythm and S1/S2
GI: Soft, Nontender and Nondistended
Musculoskeletal: No Edema
Neuro: Awake and Alert
Psych: Calm and Intact Judgement/Insight
Data Reviewed
-
CT Scan: Report Reviewed by me
Labs: Labs Reviewed by me
--- NOTE | 2025-10-10 09:32 | CON.INTV ---
Consultation
Consultation Request
Date/Time Consultation Requested: 10/10/2025
Date/Time Consultation Performed: 10/10/2025
Requesting Provider: Dr. Anthony
Performing Provider: Dr. Peter Thornton
Reason for Consultation: Acute blood loss anemia-hypotension
Medical History
-
History of Present Illness:
85-year-old man with past medical history significant for paroxysmal atrial fibrillation, antiphospholipid antibody syndrome on chronic Coumadin therapy, GERD, essential hypertension, history of spinal artery occlusion with cerebrovascular and lower
extremity paralysis, coronary artery disease status post stent placement 2006, hyperlipidemia, prostate cancer status post radical prostatectomy, history of recurrent UTIs, presented to the emergency room with generalized weakness and hematuria for
the last 3 days.
Also reporting right sided abdominal pain which was significant to prompt him to come to the emergency room.
Evaluation in the emergency room included a CAT scan of the abdomen and pelvis that demonstrated significant right kidney hydronephrosis with significant hemorrhagic component into the dilated pelvis and parenchyma.
He was transferred to the critical care unit for close monitoring.
Urology evaluated the patient and no interventions were recommended.
Patient did receive 2 units of packed red blood cells.
Currently Coumadin is on hold.
INR is less than 2.
Past Medical History
Past Medical History: Other (See assessment and plan)
Family History
Family History: Reviewed & Not Pertinent
Allergies / Home Medications
Allergies
Allergy/AdvReac Type Severity Reaction Status Date / Time
amoxicillin (From Augmentin) Allergy Rash Verified 01/31/24 10:50
clavulanic acid (From Allergy Rash Verified 01/31/24 10:50
Augmentin)
Sulfa (Sulfonamide Allergy Rash Verified 01/31/24 10:50
Antibiotics)
Home Medications
�Medication �Instructions �Recorded �Confirmed �Last Taken �Type
aspirin 81 mg tablet,delayed 81 mg PO DAILY Blood Clot 09/23/12 10/09/25 01/30/24 History
release Prevention/Tx
atorvastatin 40 mg tablet 40 mg PO HS High Cholesterol 08/20/20 10/09/25 01/30/24 History
irbesartan 150 mg tablet 150 mg PO BID High Cholesterol 08/26/23 10/09/25 01/31/24 History
methenamine hippurate 1 gram tablet 1 g PO BID Prevent UTI 08/26/23 10/09/25 01/31/24 History
metoprolol succinate 25 mg 25 mg PO DAILY Blood Pressure 08/26/23 10/09/25 10/07/25 History
tablet,extended release 24 hr
omeprazole 20 mg capsule,delayed 20 mg PO DAILY GERD 08/26/23 10/09/25 01/30/24 History
release
therapeutic multivitamin 1 tab PO DAILY Supplement 08/26/23 10/09/25 01/31/24 History
Pepcid AC 1 tab PO DAILY Gastrointestinal 01/31/24 10/09/25 01/29/24 History
Issue
hydralazine 10 mg tablet 10 mg PO BID #60 tabs 02/05/24 10/09/25 Unknown Rx
warfarin 5 mg tablet 5 mg PO DAILY 10/09/25 10/09/25 Unknown History
Review of Systems
-
History Source: Patient
All other systems: Negative unless noted
Vitals / Labs / Diagnostic Testing
Vital Signs
Temp Pulse Resp BP Pulse Ox
98.3 F 99 21 162/108 95
10/10/25 07:16 10/10/25 06:30 10/10/25 06:30 10/10/25 06:00 10/10/25 06:30
Lab Data
10/10/25 04:01
10/10/25 04:01
Laboratory Results
10/09/25 10/10/25
16:47 04:01
PT 19.5 H 19.3 H
INR 1.68 1.66
APTT 37.5 H
Diagnostic Testing:
Assessment
-
85-year-old man with complicated past medical history noted. Admitted with weakness, hematuria, acute blood loss anemia. Found to have right kidney hemorrhage on CAT scan. Transfused 2 units of packed red blood cells. Borderline hemodynamics
transferred to the critical care unit for close monitoring.
Acute blood loss anemia due to severe hematuria
CT abdomen pelvis: Shows severe hydronephrosis complicated by severe hemorrhage. Large amount of right perinephric soft tissue stranding. Severe renal cortical atrophy. No obstructive calculus.
Stable chronic mild left hydronephrosis/bladder is empty and collapsed.
Small right pleural effusion-likely right lower lobe atelectasis.
Leukocytosis-possibly complicated UTI
Acute kidney injury on chronic kidney disease-likely obstructive uropathy component
Conditions present prior admission:
History of prostate adenocarcinoma status post radical perineal prostatectomy and radiation--cancer recurrence.
Spinal artery occlusion with CVA and lower extremity paralysis-ambulatory dysfunction 2009
Neurogenic bladder with chronic incontinence
Spinal cord infarct with paraplegia
Known hydronephrosis
Recurrent UTI-history of ESBL organism
Paroxysmal atrial fibrillation
Antiphospholipid antibody syndrome
Chronic anemia with baseline hemoglobin between 11 and 12.
Chronic kidney disease creatinine around 1.9
Coronary artery disease stent placement in 2006
Bilateral cataract repair
Assessment and plan:
Acute blood loss anemia due to hematuria: Right renal pelvis bleeding in the setting of chronic hydronephrosis on anticoagulation.
Status post 2 units of packed red blood cells
Hemoglobin has been stable in the eights-baseline hemoglobin between 11 and 12.
Not significantly tachycardic
Not hypotensive
Follow serial H&H
Check daily INR
-
Urology correspondence reviewed: No plans for any interventions
Expectant management
No further bleeding-condom cath in place.
Coumadin on hold
INR is less than 2 without any interventions
-
Acute kidney injury: On chronic kidney disease agree with IV fluids-monitor for volume overload
Patient now slightly hypertensive-monitor closely.
Renal function improving
Johnson in place
Follow electrolytes and renal function daily
-
Possible complicated UTI with history of ESBL in the past-meropenem started
Infectious disease following
Follow cultures
Afebrile at the moment
Follow leukocytosis
-
Flank pain is controlled on Tylenol.
-
DVT prophylaxis SCDs-Coumadin on hold
-
At this point no critical care needs. Has been hemodynamically stable with stable hemoglobin.
Okay to transfer to telemetry
Critical care team will sign off--please call pulmonary if any respiratory issues arise.
[2025-10-10] MEDS: APRESOLINE 10 MG PO ×2 (10:05→19:13)
--- NOTE | 2025-10-10 12:55 | CM ---
Reviewed chart and met with pt bedside in ICU. Lives with [place] at [facility], has elevator acces.
Independent in ADLs, personal care, has walker but mostly uses WC, also has electric scooter.
Confirms prescription coverage.
Hx [facility] and [facility]
PCP: Harsh Becker
Pharmacy: [facility]
Anticipate discharge home, CM will continue to follow for all discharge planning needs.
[2025-10-10 13:04] LABS: Hematocrit 26.7 % (39.0-52.0); Hemoglobin 8.9 g/dL (13.0-18.0)
[2025-10-10] MEDS: STERILE WATER FOR INJECTION 10 ML IV (17:52)
[2025-10-10] MEDS: MERREM 500 MG IV (17:52)
[2025-10-10] MEDS: LIPITOR 40 MG PO (21:17)
[2025-10-11] VITALS (13 sets, daily range): BP systolic 142–179; BP diastolic 68–107; PULSE 107–115; O2SAT 93; BMI 26.4
[2025-10-11] MEDS: MERREM 500 MG IV ×2 (02:18→09:19)
[2025-10-11] MEDS: STERILE WATER FOR INJECTION 10 ML IV ×2 (02:18→09:20)
[2025-10-11 05:32] LABS: Hematocrit 26.6 % (39.0-52.0); Hemoglobin 8.9 g/dL (13.0-18.0); Mean Corp Hgb Conc. 33.5 g/dL (33.0-37.0); Mean Corpuscular Volume 82.9 fL (80.0-94.0); Platelet Count 152 10^3/uL (130-400); Red Cell Dist. Width 16.0 % (11.5-14.5)
[2025-10-11 05:46] LABS: INR 1.45; PT 17.4 Sec (11.4-14.6)
[2025-10-11 05:55] LABS: Blood Urea Nitrogen 57 mg/dl (9-20); Calcium 8.4 mg/dl (8.4-10.2); Carbon Dioxide 17 mmol/L (22-30); Chloride 110 mmol/L (98-107); Estimated Creatinine Clearance 32 ml/min; Glucose 94 mg/dl (70-99); Potassium 4.5 mmol/L (3.5-5.1); Sodium 134 mmol/L (135-145); eGFR 36.21
--- NOTE | 2025-10-11 06:53 | W.PN.URO.CBU ---
Today's Communication / Plan
-
stable urologically
Assessment / Plan
-
right renal bleed- etiology uncertain at this time
hx of prostate cancer
hx of UTI
NGB and chronic incontinence
chronic hydro and renal insuff
pt doing well
no evid of active bleeding/hgb stabilized
urine remains clear
cr at what i suspect is new baseline
would suggest restart of coumadin tomorrow
eventually will need outpt f/u in terms of renal function and options in this regard, as well as recheck of right kidney
will monitor
Diagnosis
-
Date of Service: October 11, 2025
-
Patient Diagnosis:
right renal bleed
prostate cancer
chronic hydronephrosis and renal insuff
UTI
NGB and incontinence
Subjective
-
pt looks and feels much better
urine clear
hgb stable and cr downtrending
Objective
-
Vital Signs
Temp Pulse Resp BP Pulse Ox
98.3 F 100 21 152/93 94
10/11/25 03:18 10/11/25 06:00 10/11/25 06:00 10/11/25 04:15 10/11/25 06:00
Intake and Output
10/09/25 10/10/25 10/11/25
06:59 06:59 06:59
Intake Total 1520 / 1600 3720 / 3720
Output Total 650 / 650 1325 / 1325
Balance 870 / 950 2395 / 2395
Intake:
Oral fluids 1879
IV fluids (Total) 720 / 800 1839 / 1840
Nss 1,000 ml @ 80 mls/hr IV . 720 / 800 1839 / 1840
[id number] WM Rx#:[id number]
IV piggybacks 300 / 300
Blood Product Amount Infused ( 500 / 500
mL)
Packed Rbc Leukoreduced Unit 250 / 250
[id number]
Packed Rbc Leukoreduced Unit 250 / 250
[id number]
Output:
Urine, Voided 650 / 650 1325 / 1325
Other:
How many times incontinent 1
MODERATE amount urine
Laboratory Results
10/11/25 04:43
10/11/25 04:43
Review of Systems
-
Constitutional: Fatigue
Respiratory: No Symptoms
Cardiac: No Symptoms
Abdomen/GI: No Symptoms
: No Symptoms
Physical Exam
-
General - no acute distress
Abdomen - soft, non-tender
--- NOTE | 2025-10-11 07:10 | PTCARENOTE ---
Received patient in sleep, arousable to voice, A&Ox4, Afib in 100s to 110s, BP WNL, on RA, clear liquid diet, external urinary catheter in place, no blood in urine.
--- NOTE | 2025-10-11 08:47 | W.PN.HOSP.TC ---
Addendum entered and electronically signed by Marguerite Anthony MD 10/11/25 14:51:
# Sepsis due to UTI with organ dysfunction of MAHOGANY
Addendum entered and electronically signed by Marguerite Anthony MD 10/11/25 14:23:
# Deep Tissue Injury right buttock pressure injury, POA.
Original Note:
Today's Communication/Plan
-
see A/P
Assessment / Plan
Assessment / Plan
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
Hyperlipidemia, Prostate cancer with radical prostatectomy, h/o recurrent urinary tract infections, cataract extraction right eye 01/12/2024, left eye 12/29/2023; p/w generalized weakness and blood in his urine ongoing for about 3 days.
He also reported right lower abdominal pain that has been constant and distended abdomen.
CT AP:
Severe right hydronephrosis appears complicated by hemorrhage. There is a large amount of right perinephric soft tissue stranding. There is severe renal cortical atrophy. No obstructing calculus identified. No right ureteral dilatation. Advise
further evaluation/follow-up ureteroscopy.
Stable mild left hydronephrosis without renal or ureteral calculus.
Urinary bladder is empty and collapsed.
Small right pleural effusion and probable right middle lobe and right lower lobe pneumonia.
A/P:
# Acute blood loss anemia with hematuria
# generalized weakness due to above
# sepsis POA 2/2 complicated UTI with E coli
s/p 1L NSS, cont IVF NSS at 80 cc/hr
CT noted right hydronephrosis with hemorrhage
Hgb 8 from baseline 12. Transfused 2 units PRBC, Hgb today at 8.9
iron panel reviewed
d/w heme Dr Santiago, given INR low at 1.68 on admission, would not give FFP or vit K for reversal, recc to monitor off Coumadin
Cont to hold SHOE LASTER Coumadin, could potentially restart of Coumadin tomorrow 10/12 per Uro
Urine culture grew E coli, sensitivity reviewed
Blood cultures negative
Cont empiric Merrem until further directed by ID
Monitor hematuria with condom cath per Uro- hematuria appear to have resolved
No plan for surgical intervention per Uro
Advance diet to low cholesterol
Uro on board, ID on board
# Suspect post renal MAHOGANY in setting of right hydronephrosis, improving
SCr 2.6 -> 1.8, from baseline 1.9?
Cont gentle IVF NSS at 80 cc/hr
Monitor SCr
Cont to hold SHOE LASTER irbesartan
# Parox A-fib on Coumadin SHOE LASTER
# h/o antiphospholipid antibody syndrome
INR at 1.68 on admission -> 1.45 today
Follow daily INR
Cont to hold SHOE LASTER Coumadin
heme on board
# GERD
IV PPI for now
# Essential HTN
resumed SHOE LASTER Toprol and hydralazine (increase from 10 to 20 mg BID) with hold parameter
SHOE LASTER irbesartan on hold
Monitor BP
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
# chronic ambulatory dysfunction, uses wheelchair at baseline
PT OT
# CAD with stent October 2006
Hold SHOE LASTER ASA
cont statin
# HLD
continue statin
# Prostate cancer with radical prostatectomy
# Hx UTIs
SHOE LASTER on Hiprex 1 g p.o. twice daily
# cataract extraction right eye 01/12/2024, left eye 12/29/2023
DVT ppx: SCD
FC
DW daughter at bedside. Answered all questions
Anticipated Discharge: 24 - 48 hours
Subjective/Interval History
-
Date of Service: October 11, 2025
Objective Data
-
Labs:
Laboratory Results
10/11/25
04:43
WBC 13.0 H
Hgb 8.9 L
Hct 26.6 L
Plt Count 152
PT 17.4 H
INR 1.45
Sodium 134 L
Potassium 4.5
Chloride 110 H
Carbon Dioxide 17 L
BUN 57 H
Creatinine 1.8 H
Glucose 94
Calcium 8.4
Vital Signs:
Vital Signs
Temp Pulse Resp BP Pulse Ox
37.2 C 100 21 152/93 94
10/11/25 08:02 10/11/25 06:00 10/11/25 06:00 10/11/25 04:15 10/11/25 06:00
I&O
10/10/25 10/11/25 10/12/25
06:59 06:59 06:59
Intake Total 1520 / 1600 3720 / 3720
Output Total 650 / 650 1325 / 1325
Balance 870 / 950 2395 / 2395
Review of Systems
-
History Source: Patient
All other systems: Reviewed and negative
Genitourinary: Denies Bleeding (resolved )
Physical Exam
-
General: Well Developed, Well Nourished, No Apparent Distress, Comfortable and Conversant
HEENT: Normocephalic and Atraumatic
Respiratory: Clear to Auscultation and Non Labored Respirations; Negative Wheezes, Rales or Accessory Resp Muscle Use
Cardiac: Regular Rhythm and S1/S2
GI: Soft, Nontender and Nondistended
Musculoskeletal: No Edema
Neuro: Awake and Alert
Psych: Calm and Intact Judgement/Insight
Data Reviewed
-
CT Scan: Report Reviewed by me
Labs: Labs Reviewed by me
[2025-10-11] MEDS: PROTONIX IV 40 MG IV ×2 (09:00→09:15)
[2025-10-11] MEDS: NSS (PRESERVATIVE FREE) 10 ML IV (09:00)
[2025-10-11] MEDS: APRESOLINE PO (09:18)
[2025-10-11] MEDS: TOPROL XL 25 MG PO (09:19)
[2025-10-11] MEDS: NSS 1000 IV (09:19)
--- NOTE | 2025-10-11 09:21 | W.PN.ONC2 ---
Today's Communication / Plan
-
Repeat APL and ACL AB testing. Continue to hold A/C.
Impression
Impression
Acute blood loss anemia
Hematuria/right renal bleed- etiology uncertain at this time
Mildly elevated INR related to chronic anticoagulation
Paroxysmal atrial fibrillation
Antiphospholipid antibody syndrome
hx of prostate cancer
hx of recurrent UTI
Plan
Plan
INR improved now < 1.5.
HgB stable and slowly rising suggesting bleeding in controlled for now especially off anticoagulation.
I suspect we will need to hold A/C in the short term. Obviously has risks of VTE and CVA based on antiphospholipid Ab syndrome and A. Fib with A/C on hold.
APL testing was done and confirmed in 2010. I will repeat just in case the issues may have been transient.
Subjective/Objective
Chief Complaint
ACS Heme Onc
Subjective
No complaints.
Vital Signs:
Vital Signs
Temp Pulse Resp BP Pulse Ox
99.0 F 109 21 165/107 94
10/11/25 08:02 10/11/25 09:19 10/11/25 06:00 10/11/25 09:19 10/11/25 06:00
Lab Results:
Laboratory Data
WBC 13.0 10^3/uL (4.8-10.8) H 10/11/25 04:43
Hgb 8.9 g/dL (13.0-18.0) L 10/11/25 04:43
Plt Count 152 10^3/uL (130-400) 10/11/25 04:43
PT 17.4 Sec (11.4-14.6) H 10/11/25 04:43
INR 1.45 10/11/25 04:43
APTT 37.5 Sec (23.4-35.0) H 10/09/25 16:47
eGFR 36.21 10/11/25 04:43
Physical Exam
Cardiology: S1 and S2
Pulmonary: Clear
GI: Soft
--- NOTE | 2025-10-11 09:44 | W.PN.ID1 ---
Date of Service
Date of Service: October 11, 2025
Today's Communication
- limited oral antibiotic options, he is agreeable to a trial of a nonaminocephalosporin
- start cefdinir 300 mg PO BID and monitor overnight for rash
Assessment / Plan
Possible UTI
Right Renal Bleed
H/o prostate cancer with neurogenic bladder
chronic incontinence
chronic hydronephrosis
MAHOGANY - improving
H/o colonization with ESBL E coli
Reported allergies to augmentin and sulfa - both rash
- urine culture 100 K E coli
- blood cultures x2 are in progress
- QTc 444
- limited oral antibiotic options, he is agreeable to a trial of a nonaminocephalosporin
- start cefdinir 300 mg PO BID and monitor overnight for rash
- trend renal function
- follow hgb
Chief Complaint
-: UTI
Subjective / Review of Systems
afebrile
bp stable to hypertensive
ongoing RLQ abdominal pain - dull
recalls augmentin allergy within the last 10 years, it was a rash, no hospitalization - no difficulty breathing, palpiations or GI upset
Vital Signs / Physical Exam
Vital Signs
Vital Signs
Temp Pulse Resp BP Pulse Ox
99.0 F 109 21 165/107 94
10/11/25 08:02 10/11/25 09:19 10/11/25 06:00 10/11/25 09:19 10/11/25 06:00
Physical Exam
Constitutional: No Acute Distress
Cardiovascular: Regular Rate and S1/S2; Negative Murmur or Rub
Pulmonary: Clear and Symmetric; Negative Wheezes or Rales
Gastrointestinal: Soft, Non Tender, Non Distended and Normal Bowel Sounds
Skin: Warm and Dry; Negative Rash or Jaundice
Objective Data
Lab Data
Lab Results
10/11/25 04:43
10/11/25 04:43
PT 17.4 Sec (11.4-14.6) H 10/11/25 04:43
INR 1.45 10/11/25 04:43
APTT 37.5 Sec (23.4-35.0) H 10/09/25 16:47
Estimated Creat Clear 32 ml/min 10/11/25 04:43
Lactic Acid 1.2 mmol/L (0.7-2.0) 10/09/25 15:53
Total Bilirubin 1.0 mg/dl (0.2-1.3) 10/09/25 15:53
AST 48 U/L (17-59) 10/09/25 15:53
ALT 36 U/L (0-50) 10/09/25 15:53
Alkaline Phosphatase 108 U/L (38-126) 10/09/25 15:53
Most recent labs reviewed.
Micro Results:
10/09/25 16:38 Urine Culture - Final
Urine Escherichia coli
10/09/25 15:53 Blood Culture - Preliminary
Blood/Venous No Growth in 24 hours- Final report to follow
10/09/25 15:53 Blood Culture - Preliminary
Blood/Venous No Growth in 24 hours- Final report to follow
Urine Culture Final 10/11/25-0845
CC: Greater than 100,000 CFU/ML Escherichia coli
Organism 1 Escherichia coli
1. Escherichia coli
M.I.C. RX
--------- ---
Amoxicillin/Potas. Clavulanate <=8/4 S
Ampicillin <=8 S
Ampicillin/Sulbactam <=4/2 S
Aztreonam <=4 S
Cefazolin <=2 S
Ertapenem <=0.5 S
Ciprofloxacin >2 R
Gentamicin <=2 S
Meropenem <=1 S
Nitrofurantoin-Urine Only >64 R
Piperacillin/Tazobactam <=8 S
Tetracycline >8 R
Tobramycin <=2 S
Trimethoprim/Sulfamethoxazole > R
[2025-10-11] MEDS: OMNICEF 300 MG PO ×2 (10:48→20:32)
--- NOTE | 2025-10-11 14:13 | PN.CDI ---
CDI
- -
CDI:
Physician Documentation Request
Admit Date: 10/09/25 18:07
Dear Doctor Raj,
Patient admitted with UTI.
10/09 Nursing skin assessment, 'DTI (Deep Tissue Injury) right buttock pressure injury, POA.'
Physician documentation of the type and location of wounds is required for compliant documentation. Based on the above clinical findings and your assessment, please provide the following in your progress note:
Type (etiology) of ulcer/wound:
- Pressure (decubitus) ulcer
- Other
- Unable to determine
For a pressure ulcer, please also include the stage* of the ulcer:
- Stage 1 - Skin intact, non-blanchable redness
- Stage 2 - Partial thickness loss of dermis, includes intact or open blister
- Stage 3 - Full thickness tissue not including bone, tendon or muscle
- Stage 4 - Full thickness tissue loss, including exposed bone, tendon or muscle
- Unstageable - Full thickness loss in which the base of the ulcer is covered by slough (yellow, robles, nava, green or brown) and/or eschar (robles, brown or black) in the wound bed.
- Unable to determine
Use of terms such as suspected, likely, concern for, or probable (associated with a specific diagnosis that is being evaluated, monitored, or treated as if it exists) are acceptable and can be coded in the inpatient setting, when documented at the
time of discharge.
Thank you,
Radha KAPOOR,RN,CCDS
CDI Specialist
Available via tiger text
Please use your independent medical judgment in providing your response.
*Source: National Pressure Ulcer Advisory Panel (NPUAP)
--- NOTE | 2025-10-11 14:23 | PN.CDI ---
CDI
- -
CDI:
Physician Documentation Request
Admit Date: 10/09/25 18:[address] Anthony,
Patient admitted with UTI.
10/11 PN, 'sepsis POA 2/2 complicated UTI with E coli .... Suspect post renal MAHOGANY in setting of right hydronephrosis, improving.'
[facility] is using an adapted version of the 2016 Third International Consensus Definitions for Sepsis and Septic Shock (Sepsis-3) where sepsis is defined as life threatening organ dysfunction caused by a deregulated host response to infection.
Please reference the official [facility] Sepsis Recognition Tool for further information, which can be found on the Intranet under Infection Prevention.
Based on your medical judgment, can you please clarify whether or not the above organ dysfunction is related to or due to sepsis?
-- Sepsis due to UTI with organ dysfunction of MAHOGANY
-- Sepsis due to UTI with organ dysfunction of
-- UTI only
-- Other (please specify)
Use of terms such as suspected, likely, concern for, or probable (associated with a specific diagnosis that is being evaluated, monitored, or treated as if it exists) are acceptable and can be coded in the inpatient setting when documented at the
time of discharge.
Please use your independent medical judgement in providing your response.
Thank you,
Radha KAPOOR,RN,CCDS
CDI Specialist
Available via [place] text
--- NOTE | 2025-10-11 16:41 | CM ---
F/U: TRENT Escobar saw that patient is recommended for SNF. TRENT met with patient, he think it would be best, provided a list because he wants to discuss with his . Patient lives in Independent Living at [facility]. PLAN: SNF vs. Home PT.
[2025-10-11] MEDS: APRESOLINE 20 MG PO (20:33)
[2025-10-11] MEDS: LIPITOR 40 MG PO (22:21)
[2025-10-12] MEDS: NSS 1000 IV ×2 (02:11→15:07)
[2025-10-12 03:07] VITALS: BP 143/91
[2025-10-12 06:00] LABS: Hematocrit 25.3 % (39.0-52.0); Hemoglobin 8.6 g/dL (13.0-18.0); Mean Corp Hgb Conc. 34.0 g/dL (33.0-37.0); Mean Corpuscular Volume 82.7 fL (80.0-94.0); Platelet Count 156 10^3/uL (130-400); Red Cell Dist. Width 15.9 % (11.5-14.5)
[2025-10-12 06:28] LABS: Blood Urea Nitrogen 46 mg/dl (9-20); Calcium 8.3 mg/dl (8.4-10.2); Carbon Dioxide 14 mmol/L (22-30); Chloride 113 mmol/L (98-107); Estimated Creatinine Clearance 39 ml/min; Glucose 93 mg/dl (70-99); Potassium 4.4 mmol/L (3.5-5.1); Sodium 135 mmol/L (135-145); eGFR 45.06
[2025-10-12 07:00] VITALS: BP 167/101
[2025-10-12] MEDS: SODIUM BICARBONATE 1150 MEQ IV (07:05)
[2025-10-12 07:19] LABS: INR 1.42; PT 17.5 Sec (11.4-14.6)
[2025-10-12] MEDS: APRESOLINE 20 MG PO ×2 (08:04→20:25)
[2025-10-12] MEDS: OMNICEF 300 MG PO (08:05)
[2025-10-12] MEDS: TOPROL XL 25 MG PO (08:05)
[2025-10-12] MEDS: NSS (PRESERVATIVE FREE) 10 ML IV (08:06)
[2025-10-12] MEDS: NSS IV (08:24)
--- NOTE | 2025-10-12 09:15 | W.PN.URO.CBU ---
Today's Communication / Plan
-
Consider restarting of Warfarin 10/13
Will need outpatient F/U w/ Dr. Mills for repeat CT vs. MRI of right kidney
Assessment / Plan
-
Right renal bleed - etiology uncertain at this time
Prostate cancer s/p RPP and subsequent EBRT
Chronic hydronephrosis and renal insufficiency
UTI
NGB and incontinence
Clinically doing well.
No evidence of active renal bleeding - H/H stabilized.
Cr continues to downtrend.
Diagnosis
-
Date of Service: October 12, 2025
-
Patient Diagnosis:
Right renal bleed
Prostate cancer
Chronic hydronephrosis and renal insufficiency
UTI
NGB and incontinence
Subjective
-
Feeling better.
Urine output remains clear.
Objective
-
Vital Signs
Temp Pulse Resp BP Pulse Ox
97.7 F 105 17 167/107 98
10/12/25 07:00 10/12/25 08:04 10/12/25 07:00 10/12/25 08:04 10/12/25 07:00
Intake and Output
10/11/25 10/12/25 10/13/25
06:59 06:59 06:59
Intake Total 3720 / 3800 2039
Output Total 1325 / 1325 1600 / 1600
Balance 2395 / 2475 440 / 440
Intake:
Oral fluids 1880 1880 1640 / 1640
IV fluids (Total) 18390 400 / 400
Nss 1,000 ml @ 80 mls/hr IV . 1839 400 / 400
[id number] WM Rx#:[id number]
Output:
Urine, Voided 1325 / 1325 1600 / 1600
Other:
How many times incontinent 1
MODERATE amount urine
Laboratory Results
10/12/25 05:49
10/12/25 05:49
Physical Exam
-
General - well developed, well nourished, no acute distress
Abdomen - soft, non-tender, non-distended
Extremities - no clubbing, no cyanosis, no edema
Care Review
Data Reviewed
Discussed with: Hospitalist
CT Scan: Report Pers Reviewed and Image Pers Reviewed
--- NOTE | 2025-10-12 10:30 | W.PN.HOSP.TC ---
Today's Communication/Plan
-
Check ABG and Lactic acid this am.
Assessment / Plan
Assessment / Plan
85-year-old man with PMH of:
Paroxysmal atrial fibrillation,
antiphospholipid antibody syndrome on Coumadin,
GERD,
Essential hypertension,
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
CAD s/p stent October 2006,
Hyperlipidemia,
Prostate cancer with radical prostatectomy,
h/o recurrent urinary tract infections,
cataract extraction right eye 01/12/2024, left eye 12/29/2023;
p/w generalized weakness and blood in his urine ongoing for about 3 days.
He also reported right lower abdominal pain that has been constant and distended abdomen.
CT AP:
Severe right hydronephrosis appears complicated by hemorrhage.
There is a large amount of right perinephric soft tissue stranding.
There is severe renal cortical atrophy. No obstructing calculus identified.
No right ureteral dilatation.
Advise further evaluation/follow-up ureteroscopy.
Stable mild left hydronephrosis without renal or ureteral calculus.
Urinary bladder is empty and collapsed.
Small right pleural effusion and probable right middle lobe and right lower lobe pneumonia.
A/P:
1. Acute blood loss anemia with hematuria - labs worsening, pt feels well.
Complicated by generalized weakness due to above
Compllicated by sepsis POA 2/2 complicated UTI with E coli
s/p 1L NSS, cont IVF NSS at 80 cc/hr
CT noted right hydronephrosis with hemorrhage
Hgb 8 from baseline 12. Transfused 2 units PRBC, Hgb today 8.9 --> 8.6
iron panel reviewed
Previous hospitalist d/w heme Dr Santiago, given INR low at 1.68 on admission, would not give FFP or vit K for reversal, recc to monitor off Coumadin
Cont to hold ALLEY TENDER Coumadin, could potentially restart of Coumadin tomorrow 10/13 per Uro
Urine culture grew E coli, sensitivity reviewed
Blood cultures negative
Cont antibiotics directed by ID
Latest ID rec:
'limited oral antibiotic options, he is agreeable to a trial of a nonaminocephalosporin
started cefdinir 300 mg PO BID and monitor overnight for rash'
Monitor hematuria with condom cath per Uro- hematuria appear to have resolved
No plan for surgical intervention per Uro
Advanced diet to low cholesterol
Uro on board, ID on board
2. H/O sepsis - which appeared to have resolved, but now CO2 14
Check Lactic acid
Get ABG
3. Suspect post renal MAHOGANY in setting of right hydronephrosis, improving
SCr 2.6 -> 1.8 -> 1.5, from baseline 1.9?
Cont gentle IVF NSS at 80 cc/hr
This may have to be increased if Lactic acid is elevated
Monitor SCr
Cont to hold ALLEY TENDER irbesartan
4. Parox A-fib on Coumadin ALLEY TENDER
Complicated by h/o antiphospholipid antibody syndrome
INR at 1.68 on admission -> 1.45 -> 1.42 today
Follow daily INR
Cont to hold ALLEY TENDER Coumadin - restart tomorrow if not bleeding
heme on board
5. GERD
IV PPI
6. Essential HTN
resumed ALLEY TENDER Toprol and hydralazine (increase from 10 to 20 mg BID) with hold parameter
ALLEY TENDER irbesartan on hold
Monitor BP
7. 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
chronic ambulatory dysfunction, uses wheelchair at baseline
PT OT
8. CAD with stent October 2006
Hold ALLEY TENDER ASA
cont statin
9. HLD
continue statin
10. Prostate cancer with radical prostatectomy - not an acute issue
11. Hx UTIs
ALLEY TENDER on Hiprex 1 g p.o. twice daily
Currently on antibiotics per ID
12. cataract extraction right eye 01/12/2024, left eye 12/29/2023 - not an acute issue
DVT ppx: SCD
FC
Anticipated Discharge: > 48 hours
Subjective/Interval History
-
Date of Service: October 12, 2025
Feels good today, no focal complaints
Objective Data
-
Labs:
Laboratory Results
10/12/25 10/12/25 10/12/25
05:48 05:49 06:58
WBC 11.2 H
Hgb 8.6 L
Hct 25.3 L
Plt Count 156
PT Cancelled 17.5 H
INR Cancelled 1.42
Sodium 135
Potassium 4.4
Chloride 113 H
Carbon Dioxide 14 L*
BUN 46 H
Creatinine 1.5 H
Glucose 93
Calcium 8.3 L
Vital Signs:
Vital Signs
Temp Pulse Resp BP Pulse Ox
97.7 F 105 17 167/107 98
10/12/25 07:00 10/12/25 08:04 10/12/25 07:00 10/12/25 08:04 10/12/25 09:54
I&O
10/11/25 10/12/25 10/13/25
06:59 06:59 06:59
Intake Total 3720 / 3800 2039 / 2039
Output Total 1325 / 1325 1600 / 1600
Balance 2395 / 2475 440 / 440
Review of Systems
-
History Source: Patient
All other systems: Reviewed and negative
Physical Exam
-
General: Well Developed, Well Nourished, No Apparent Distress, Comfortable and Conversant
HEENT: Normocephalic, Moist Mucous Membranes, Nose Appears Normal and Ears Appear Normal
Respiratory: Decreased Breath Sounds
Cardiac: Regular Rhythm, S1/S2 and Murmur
GI: Soft, Nontender and Nondistended
Musculoskeletal: No Clubbing, No Cyanosis and No Edema
Skin: Warm and Dry; Negative Rash
Neuro: Awake, Alert, Oriented and AO x 3
Psych: Calm
Data Reviewed
-
Labs: Labs Reviewed by me
[2025-10-12 11:02] VITALS: BP 152/89
[2025-10-12] MEDS: DESENEX/MITRAZOL/ZEASORB 1 APPLIC TOPICAL ×2 (11:19→20:20)
[2025-10-12 11:22] LABS: B.E. -7.1 mmol/L; HCO3 16.5 mmol/L (21-28); O2 Saturation % 98.3 % (94-98); PCO2 26 mmHg (35-48); PO2 79 mmHg (83-108)
[2025-10-12 11:23] LABS: O2 Therapy RA
--- NOTE | 2025-10-12 11:56 | W.PN.ID1 ---
Date of Service
Date of Service: October 12, 2025
Today's Communication
- start ceftriaxone stop cefdinir day 3 of overall therapy, given acidosis extent of inflammation plan a course of IV ceftriaxone 2 gm IV q24 hours day 10/10-10/23
- midline
Assessment / Plan
Possible UTI
Right Renal Bleed
H/o prostate cancer with neurogenic bladder
chronic incontinence
chronic hydronephrosis
MAHOGANY - improving
H/o colonization with ESBL E coli
Reported allergies to augmentin and sulfa - both rash
- urine culture 100 K E coli
- blood cultures x2 are in progress
- QTc 444
- progressive acidosis
- limited oral antibiotic options, trial of cefdinir was a success
- start ceftriaxone stop cefdinir day 3 of overall therapy, given acidosis extent of inflammation plan a course of IV ceftriaxone 2 gm IV q24 hours day 10/10-10/23
- midline
- trend renal function
- follow hgb
Chief Complaint
-: UTI
Subjective / Review of Systems
afebrile
bp stable
RLQ pain unchanged
tolerated cefdinir without rash, difficulty breathing, palpitations etc
Vital Signs / Physical Exam
Vital Signs
Vital Signs
Temp Pulse Resp BP Pulse Ox
98.3 F 113 20 152/89 93
10/12/25 11:02 10/12/25 11:02 10/12/25 11:02 10/12/25 11:02 10/12/25 11:02
Physical Exam
Constitutional: No Acute Distress
Cardiovascular: Regular Rate and S1/S2; Negative Murmur or Rub
Pulmonary: Clear and Symmetric; Negative Wheezes or Rales
Gastrointestinal: Soft, Non Tender, Non Distended and Normal Bowel Sounds
Genito-Urinary: Negative Suprapubic Tenderness or CVA Tenderness
Skin: Warm and Dry; Negative Rash or Jaundice
Objective Data
Lab Data
Lab Results
10/12/25 05:49
10/12/25 05:49
PT 17.5 Sec (11.4-14.6) H 10/12/25 06:58
INR 1.42 10/12/25 06:58
APTT 37.5 Sec (23.4-35.0) H 10/09/25 16:47
Estimated Creat Clear 39 ml/min 10/12/25 05:49
Lactic Acid 1.1 mmol/L (0.7-2.0) 10/12/25 10:56
Total Bilirubin 1.0 mg/dl (0.2-1.3) 10/09/25 15:53
AST 48 U/L (17-59) 10/09/25 15:53
ALT 36 U/L (0-50) 10/09/25 15:53
Alkaline Phosphatase 108 U/L (38-126) 10/09/25 15:53
Most recent labs reviewed.
Micro Results:
10/09/25 15:53 Blood Culture - Preliminary
Blood/Venous No Growth in 48 hours- Final report to follow
10/09/25 15:53 Blood Culture - Preliminary
Blood/Venous No Growth in 48 hours- Final report to follow
10/09/25 16:38 Urine Culture - Final
Urine Escherichia coli
[2025-10-12] MEDS: TYLENOL 650 MG PO (12:38)
--- NOTE | 2025-10-12 13:01 | PTCARENOTE ---
Pt came to unit from ICU yesterday with male purwick intact and working appropriately. MASD noted to penis when purwick was changed today. Desenex ordered and applied to area. Pt states that he uses condom cath and leg bag set up at home chronically
d/t neurogenic bladder from hx CVA. MASD to penis present on admission per pt. Pt educated about MASD and the worries of it being exacerbated with condom cath in hospital stay. No pain reported in area at this time. Pt insisted on using condom cath.
Plan of care ongoing.
[2025-10-12] MEDS: STERILE WATER FOR INJECTION 20 ML IV (13:41)
[2025-10-12] MEDS: ROCEPHIN 2000 MG IV (13:42)
[2025-10-12 15:00] VITALS: BP 159/91
[2025-10-12 19:00] VITALS: BP 164/95
[2025-10-12 20:25] LABS: Blood Urea Nitrogen 46 mg/dl (9-20); Calcium 8.2 mg/dl (8.4-10.2); Carbon Dioxide 18 mmol/L (22-30); Chloride 111 mmol/L (98-107); Estimated Creatinine Clearance 36 ml/min; Glucose 156 mg/dl (70-99); Potassium 5.0 mmol/L (3.5-5.1); Sodium 134 mmol/L (135-145); eGFR 41.70
[2025-10-12] MEDS: LIPITOR 40 MG PO (21:08)
[2025-10-12 23:00] VITALS: BP 154/95
--- NOTE | 2025-10-12 23:52 | PTCARENOTE ---
MASD and redness to penis with condom cath in use. patient states that he uses a condom cath at home and would like to continue use with it due to hx of neurogenic bladder due to hx of CVA. patient educated on worsening MASD that continued use of
the condom caterer could cause. patient would still like to continue use of condom catheter tonight and will think about taking it off in the morning. patient reports no pain. POC ongoing.
[2025-10-13] VITALS (8 sets, daily range): BP systolic 141–183; BP diastolic 92–115
[2025-10-13] MEDS: NSS 1000 IV ×2 (03:32→16:06)
[2025-10-13] MEDS: TOPROL XL 25 MG PO (07:37)
[2025-10-13] MEDS: APRESOLINE 20 MG PO ×2 (07:37→19:32)
[2025-10-13] MEDS: NSS (PRESERVATIVE FREE) 10 ML IV (07:38)
[2025-10-13] MEDS: PROTONIX IV 40 MG IV (07:38)
[2025-10-13] MEDS: DESENEX/MITRAZOL/ZEASORB 1 APPLIC TOPICAL ×2 (07:38→19:33)
[2025-10-13 08:55] LABS: Hematocrit 26.2 % (39.0-52.0); Hemoglobin 8.6 g/dL (13.0-18.0); Mean Corp Hgb Conc. 32.8 g/dL (33.0-37.0); Mean Corpuscular Volume 81.9 fL (80.0-94.0); Platelet Count 184 10^3/uL (130-400); Red Cell Dist. Width 16.1 % (11.5-14.5)
[2025-10-13 09:17] LABS: INR 1.39; PT 17.2 Sec (11.4-14.6)
[2025-10-13 09:18] LABS: Blood Urea Nitrogen 41 mg/dl (9-20); Calcium 8.2 mg/dl (8.4-10.2); Carbon Dioxide 16 mmol/L (22-30); Chloride 110 mmol/L (98-107); Estimated Creatinine Clearance 42 ml/min; Glucose 93 mg/dl (70-99); Potassium 4.3 mmol/L (3.5-5.1); Sodium 135 mmol/L (135-145); eGFR 48.95
--- NOTE | 2025-10-13 09:29 | W.PN.URO.CBU ---
Today's Communication / Plan
-
Consider restarting Warfarin 10/13
Will need outpatient F/U w/ Dr. Mills for repeat CT vs. MRI of right kidney
Assessment / Plan
-
Right renal bleed - etiology uncertain at this time
Prostate cancer s/p RPP and subsequent EBRT
Chronic hydronephrosis and renal insufficiency
UTI
NGB and incontinence
Clinically doing well.
No evidence of active renal bleeding - H/H stabilized.
Cr stabilized.
Diagnosis
-
Date of Service: October 13, 2025
-
Patient Diagnosis:
Right renal bleed
Prostate cancer
Chronic hydronephrosis and renal insufficiency
UTI
NGB and incontinence
Subjective
-
Feels improved since admission.
Urine output remains clear.
Objective
-
Vital Signs
Temp Pulse Resp BP Pulse Ox
99.1 F 115 16 170/115 96
10/13/25 07:20 10/13/25 07:20 10/13/25 07:20 10/13/25 07:20 10/13/25 07:30
Intake and Output
10/12/25 10/13/25 10/14/25
06:59 06:59 06:59
Intake Total 2040 / 2040 540 / 540
Output Total 1600 / 1600 850 / 850
Balance 440 / 440 -310 / -310
Intake:
Oral fluids 1640 / 1640 540 / 540
IV fluids (Total) 400 / 400
Nss 1,000 ml @ 80 mls/hr IV . 400 / 400
[id number] Rx#:[id number]
Output:
Urine, Voided 1600 / 1600 850 / 850
Laboratory Results
10/13/25 08:46
10/13/25 08:47
Physical Exam
-
General - well developed, well nourished, no acute distress
Abdomen - soft, non-tender, non-distended
Care Review
Data Reviewed
Discussed with: Hospitalist
CT Scan: Report Pers Reviewed and Image Pers Reviewed
--- NOTE | 2025-10-13 10:07 | W.PN.HOSP.TC ---
Today's Communication/Plan
-
Check foot x-ray. Restart Coumadin.
Assessment / Plan
Assessment / Plan
85-year-old man with PMH of:
Paroxysmal atrial fibrillation,
antiphospholipid antibody syndrome on Coumadin,
GERD,
Essential hypertension,
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
CAD s/p stent October 2006,
Hyperlipidemia,
Prostate cancer with radical prostatectomy,
h/o recurrent urinary tract infections,
cataract extraction right eye 01/12/2024, left eye 12/29/2023;
p/w generalized weakness and blood in his urine ongoing for about 3 days.
He also reported right lower abdominal pain that has been constant and distended abdomen.
CT AP:
Severe right hydronephrosis appears complicated by hemorrhage.
There is a large amount of right perinephric soft tissue stranding.
There is severe renal cortical atrophy. No obstructing calculus identified.
No right ureteral dilatation.
Advise further evaluation/follow-up ureteroscopy.
Stable mild left hydronephrosis without renal or ureteral calculus.
Urinary bladder is empty and collapsed.
Small right pleural effusion and probable right middle lobe and right lower lobe pneumonia.
A/P:
1. Acute blood loss anemia with hematuria - labs stabilized, pt feels well.
Complicated by generalized weakness due to above
Compllicated by sepsis POA 2/2 complicated UTI with E coli
s/p 1L NSS, cont IVF NSS at 80 cc/hr
CT noted right hydronephrosis with hemorrhage
Hgb 8 from baseline 12. Transfused 2 units PRBC, Hgb today 8.9 --> 8.6 --> 8.6
iron panel reviewed
Previous hospitalist d/w heme Dr Santiago, given INR low at 1.68 on admission, would not give FFP or vit K for reversal, recc to monitor off Coumadin
restart of Coumadin today 10/13 per Uro
Keep close eye on H/H
Urine culture grew E coli, sensitivity reviewed
Blood cultures negative
Cont antibiotics directed by ID
Latest ID rec:
'start ceftriaxone stop cefdinir day 3 of overall therapy,
given acidosis extent of inflammation plan a course of IV ceftriaxone 2 gm IV q24 hours day 10/10-10/23
- midline'
Monitor hematuria with condom cath per Uro- hematuria appear to have resolved
No plan for surgical intervention per Uro
Advanced diet to low cholesterol
Uro on board, ID on board
2. H/O sepsis - which appeared to have resolved, but now CO2 14-16
Checked Lactic acid - not elevated
Got ABG - pH 7.41
Non-gap met acidosis
A primary chronic respiratory alkalosis
A secondary metabolic acidosis
pH compensated and patient is not having problems keeping up resp rate
Follow closely, this should improve as renal function improves and infection improves
Given pH, NS ok for fluids
3. Suspect post renal MAHOGANY in setting of right hydronephrosis, improving
SCr 2.6 -> 1.8 -> 1.5 -> 1.4 from baseline 1.9?
Cont gentle IVF NSS at 80 cc/hr
This may have to be increased if Lactic acid becomes elevated
LA not elevated now. keep current rate.
Monitor SCr
Cont to hold CUPOLA MECHANIC irbesartan
4. 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
Complicated by h/o antiphospholipid antibody syndrome
INR at 1.68 on admission -> 1.45 -> 1.42 today
Follow daily INR
CUPOLA MECHANIC Coumadin - restart today
heme on board
5. GERD
IV PPI
6. Essential HTN - poorly controlled
resumed CUPOLA MECHANIC Toprol and hydralazine (increase from 10 to 20 mg BID) with hold parameter
CUPOLA MECHANIC irbesartan on hold
Monitor BP
Will likely get better when the irbesartan is restarted
7. 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
chronic ambulatory dysfunction, uses wheelchair at baseline
PT OT
8. CAD with stent October 2006
Hold CUPOLA MECHANIC ASA
cont statin
9. HLD
continue statin
10. Prostate cancer with radical prostatectomy - not an acute issue
11. Hx UTIs
CUPOLA MECHANIC on Hiprex 1 g p.o. twice daily
Currently on antibiotics per ID
12. cataract extraction right eye 01/12/2024, left eye 12/29/2023 - not an acute issue
13. Chronic would on right foot, Present CUPOLA MECHANIC
Check x-ray to make sure not deeper than it seems.
DVT ppx: SCD, now coumadin
Full code
DW daughter at bedside
Anticipated Discharge: > 48 hours
Subjective/Interval History
-
Date of Service: October 13, 2025
Doing well today
Objective Data
-
Labs:
Laboratory Results
10/13/25 10/13/25
08:46 08:47
WBC 9.8
Hgb 8.6 L
Hct 26.2 L
Plt Count 184
PT 17.2 H
INR 1.39
Sodium 135
Potassium 4.3
Chloride 110 H
Carbon Dioxide 16 L
BUN 41 H
Creatinine 1.4 H
Glucose 93
Calcium 8.2 L
Vital Signs:
Vital Signs
Temp Pulse Resp BP Pulse Ox
99.1 F 115 16 170/115 96
10/13/25 07:20 10/13/25 07:20 10/13/25 07:20 10/13/25 07:20 10/13/25 07:30
I&O
10/12/25 10/13/25 10/14/25
06:59 06:59 06:59
Intake Total 2039 540 / 540
Output Total 1600 / 1600 850 / 850
Balance 440 / 440 -310 / -310
Review of Systems
-
History Source: Patient
All other systems: Reviewed and negative
Physical Exam
-
General: Well Developed, Well Nourished and No Apparent Distress
HEENT: Normocephalic and Atraumatic
Respiratory: Clear to Auscultation
Cardiac: Regular Rhythm and S1/S2
GI: Soft, Nontender and Nondistended
Musculoskeletal: No Clubbing, No Cyanosis, Edema, Right Lower Extrem and Edema, Left Lower Extrem
Skin: Warm and Dry; Negative Rash
Neuro: Awake, Alert, Oriented and AO x 3
Psych: Calm
Data Reviewed
-
Labs: Labs Reviewed by me
[2025-10-13] MEDS: APRESOLINE 10 MG IV ×2 (12:06→23:17)
[2025-10-13] MEDS: TYLENOL 650 MG PO (12:15)
[2025-10-13] MEDS: ROCEPHIN 2000 MG IV (13:32)
[2025-10-13] MEDS: STERILE WATER FOR INJECTION 20 ML IV (13:32)
[2025-10-13] MEDS: COUMADIN 5 MG PO (17:10)
[2025-10-13] MEDS: LIPITOR 40 MG PO (21:19)
[2025-10-14] VITALS (9 sets, daily range): BP systolic 129–183; BP diastolic 75–105; BMI 26.4
--- NOTE | 2025-10-14 01:13 | PTCARENOTE ---
Blood pressure during 2299 VS 168/101. PRN hydralazine given. See MAR for administration. this RN rechecked the patients blood pressure at 00:35. manual blood pressure 176/96. ESCOBAR [place] notified. new order received to discontinue IV fluids.
This RN disconnected the patient from IV fluids. POC ongoing.
[2025-10-14 06:49] LABS: Hematocrit 27.4 % (39.0-52.0); Hemoglobin 8.9 g/dL (13.0-18.0); Mean Corp Hgb Conc. 32.5 g/dL (33.0-37.0); Mean Corpuscular Volume 82.8 fL (80.0-94.0); Platelet Count 215 10^3/uL (130-400); Red Cell Dist. Width 16.2 % (11.5-14.5)
[2025-10-14 07:04] LABS: INR 1.52; PT 18.5 Sec (11.4-14.6)
[2025-10-14] MEDS: APRESOLINE 20 MG PO ×2 (07:30→20:20)
[2025-10-14] MEDS: APRESOLINE 10 MG IV ×2 (07:30→23:02)
[2025-10-14] MEDS: NSS (PRESERVATIVE FREE) 10 ML IV (07:30)
[2025-10-14] MEDS: PROTONIX IV 40 MG IV (07:30)
[2025-10-14] MEDS: TOPROL XL 25 MG PO ×2 (07:30→11:40)
[2025-10-14 07:32] LABS: Blood Urea Nitrogen 35 mg/dl (9-20); Calcium 8.5 mg/dl (8.4-10.2); Carbon Dioxide 18 mmol/L (22-30); Chloride 113 mmol/L (98-107); Estimated Creatinine Clearance 45 ml/min; Glucose 101 mg/dl (70-99); Potassium 4.2 mmol/L (3.5-5.1); Sodium 137 mmol/L (135-145); eGFR 53.50
[2025-10-14] MEDS: DESENEX/MITRAZOL/ZEASORB 1 APPLIC TOPICAL ×2 (07:35→20:22)
--- NOTE | 2025-10-14 08:17 | W.PN.ONC2 ---
Today's Communication / Plan
-
monitor CBC and INR
enoxaparin to warfarin bridge
monitor for bleeding
Impression
Impression
Acute blood loss anemia s/p 2U prbc during hospitalization, last 10/09
Hematuria/right renal bleed- etiology uncertain at this time
Paroxysmal atrial fibrillation
Antiphospholipid antibody syndrome, history spinal infarction
hx of prostate cancer
hx of recurrent UTI
MAHOGANY improved
Plan
Plan
warfarin resumed , recommend enoxaparin bridge until INR therapeutic with close monitoring for bleeding
HgB stable and slowly rising suggesting bleeding in controlled
Will need to assess ongoing risks of bleeding/thrombosis based with recent bleeding event, hx APLS, spinal infarction (December 2009), and atrial fibrillation
APL testing was done and confirmed in 2010.
OP follow up with urology for repeat imaging of right kidney
ID following
Subjective/Objective
Subjective
afebrile, no hypoxia or hypotension
using tylenol prn pain
warfarin resumed last evening
denies bleeding
Vital Signs:
Vital Signs
Temp Pulse Resp BP Pulse Ox
98.6 F 118 18 183/105 95
10/14/25 07:30 10/14/25 07:30 10/14/25 07:30 10/14/25 07:30 10/14/25 07:30
Lab Results:
Laboratory Data
WBC 9.5 10^3/uL (4.8-10.8) 10/14/25 06:34
Hgb 8.9 g/dL (13.0-18.0) L 10/14/25 06:34
Plt Count 215 10^3/uL (130-400) 10/14/25 06:34
PT 18.5 Sec (11.4-14.6) H 10/14/25 06:34
INR 1.52 10/14/25 06:34
APTT 37.5 Sec (23.4-35.0) H 10/09/25 16:47
eGFR 53.50 10/14/25 06:34
Physical Exam
HEENT: No Jaundice
Pulmonary: Other (unlabored)
GI: Soft
Extremities: Pulses Present
--- NOTE | 2025-10-14 13:04 | W.PN.ID1 ---
Date of Service
Date of Service: October 14, 2025
Today's Communication
- c/w ceftriaxone 2 gm IV q24 hours day 10/10-10/23
Assessment / Plan
Possible UTI
Right Renal Bleed
H/o prostate cancer with neurogenic bladder
chronic incontinence
chronic hydronephrosis
MAHOGANY - improving
H/o colonization with ESBL E coli
Reported allergies to augmentin and sulfa - both rash
- urine culture 100 K E coli
- blood cultures x2 are in progress
- QTc 444
- progressive acidosis
- limited oral antibiotic options, trial of cefdinir was a success
- c/w ceftriaxone 2 gm IV q24 hours day 10/10-10/23
- midline
- trend renal function
- follow hgb
Chief Complaint
-: UTI
Subjective / Review of Systems
afebrile
bp stable
no complaints
tolerating current therapies
Vital Signs / Physical Exam
Vital Signs
Vital Signs
Temp Pulse Resp BP Pulse Ox
98.9 F 106 16 129/75 97
10/14/25 12:00 10/14/25 12:00 10/14/25 12:00 10/14/25 12:00 10/14/25 12:00
Physical Exam
Constitutional: No Acute Distress
Cardiovascular: Regular Rate and S1/S2; Negative Murmur or Rub
Pulmonary: Clear and Symmetric; Negative Wheezes or Rales
Gastrointestinal: Soft, Non Tender, Non Distended and Normal Bowel Sounds
Skin: Warm and Dry; Negative Rash or Jaundice
Objective Data
Lab Data
Lab Results
10/14/25 06:34
10/14/25 06:34
PT 18.5 Sec (11.4-14.6) H 10/14/25 06:34
INR 1.52 10/14/25 06:34
APTT 37.5 Sec (23.4-35.0) H 10/09/25 16:47
Estimated Creat Clear 45 ml/min 10/14/25 06:34
Lactic Acid 1.1 mmol/L (0.7-2.0) 10/12/25 10:56
Total Bilirubin 1.0 mg/dl (0.2-1.3) 10/09/25 15:53
AST 48 U/L (17-59) 10/09/25 15:53
ALT 36 U/L (0-50) 10/09/25 15:53
Alkaline Phosphatase 108 U/L (38-126) 10/09/25 15:53
Most recent labs reviewed.
Micro Results:
10/09/25 15:53 Blood Culture - Preliminary
Blood/Venous No Growth in 4 days- Final report to follow
10/09/25 15:53 Blood Culture - Preliminary
Blood/Venous No Growth in 4 days- Final report to follow
10/09/25 16:38 Urine Culture - Final
Urine Escherichia coli
--- NOTE | 2025-10-14 13:20 | CM ---
Patient seen at bedside
PT rec SNF-Patient prefers [facility] as he lives at [facility]
referral placed in [facility]
PLAN: SNF, pending bed availability, when stable, CM to continue to follow
[2025-10-14] MEDS: STERILE WATER FOR INJECTION 20 ML IV (13:28)
[2025-10-14] MEDS: ROCEPHIN 2000 MG IV (13:29)
--- NOTE | 2025-10-14 14:27 | W.PN.HOSP.TC ---
Today's Communication/Plan
-
Lovenox/Coumadin bridge per Heme
continue IV abx via Midline per ID
increase BB due to tachycardia from A. fib
DC planning to SNF
Assessment / Plan
Assessment / Plan
85-year-old man with PMH of:
Paroxysmal atrial fibrillation,
antiphospholipid antibody syndrome on Coumadin,
GERD,
Essential hypertension,
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
CAD s/p stent October 2006,
Hyperlipidemia,
Prostate cancer with radical prostatectomy,
h/o recurrent urinary tract infections,
cataract extraction right eye 01/12/2024, left eye 12/29/2023;
Assessment:
Acute blood loss anemia with hematuria
- CT with right hydronephrosis with hemorrhage
- s/p 2 units PRBC
- appreciate Urology input; will need OP MRI with OP Urology f/u
sepsis (UTI/MAHOGANY) POA 2/2 complicated UTI with E coli
- Continue Rocephin per ID via midline through 10/23/24
- appreciate ID inputs
generalized weakness due to above
- PT/OT - family wants SNF. CM notified
MAHOGANY
Lactic acidosis
- improving with IVF
- hold Nephrotoxins
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
Hx of antiphospholipid antibody syndrome
- continue Coumadin; bridge with Lovenox per Hematology
GERD
- continue PPI
Essential HTN
- continue BB + hydralazine
- potentially resume ARB closer to DC
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
- chronic ambulatory dysfunction, uses wheelchair at baseline
- PT/OT
CAD with stent October 2006
- resume ASA at discharge, continue Statin
HLD
- continue statin
Prostate cancer with radical prostatectomy
Hx UTIs
- holding ACCOUNTANT CONTROLLER on Hiprex 1 g p.o. twice daily
- Currently on antibiotics per ID
cataract extraction right eye 01/12/2024, left eye 12/29/2023
Chronic would on right foot, Present ACCOUNTANT CONTROLLER
- Xray without Osteo
DVT ppx: Lovenox/Coumadin bridge
Code: Full
Anticipated Discharge: > 48 hours
Subjective/Interval History
-
Date of Service: October 14, 2025
hematuria resolved, now back on Coumadin
Objective Data
-
Labs:
Laboratory Results
10/14/25
06:34
WBC 9.5
Hgb 8.9 L
Hct 27.4 L
Plt Count 215
PT 18.5 H
INR 1.52
Sodium 137
Potassium 4.2
Chloride 113 H
Carbon Dioxide 18 L
BUN 35 H
Creatinine 1.3
Glucose 101 H
Calcium 8.5
Vital Signs:
Vital Signs
Temp Pulse Resp BP Pulse Ox
98.9 F 106 16 129/75 97
10/14/25 12:00 10/14/25 12:00 10/14/25 12:00 10/14/25 12:00 10/14/25 12:00
I&O
10/13/25 10/14/25 10/15/25
06:59 06:59 06:59
Intake Total 540 / 540 1540 / 1540
Output Total 850 / 850
Balance -310 / -310 1540 / 1540
Physical Exam
-
General: No Apparent Distress
HEENT: Normocephalic and Atraumatic
Respiratory: Negative Wheezes
Cardiac: Regular Rhythm
GI: Soft and Nontender
Musculoskeletal: No Edema
Neuro: AO x 3
Psych: Calm
Data Reviewed
-
Total Time Spent with Patient (in minutes): 45
Labs: Labs Reviewed by me
[2025-10-14] MEDS: COUMADIN 5 MG PO (17:00)
[2025-10-14] MEDS: LOVENOX 90 MG SC (17:00)
[2025-10-14] MEDS: LIPITOR 40 MG PO (21:45)
[2025-10-15] VITALS (7 sets, daily range): BP systolic 119–174; BP diastolic 78–119; PULSE 116; O2SAT 95
[2025-10-15 05:35] LABS: Hematocrit 26.5 % (39.0-52.0); Hemoglobin 8.7 g/dL (13.0-18.0); Mean Corp Hgb Conc. 32.8 g/dL (33.0-37.0); Mean Corpuscular Volume 82.6 fL (80.0-94.0); Platelet Count 254 10^3/uL (130-400); Red Cell Dist. Width 16.5 % (11.5-14.5)
[2025-10-15] MEDS: LOVENOX 90 MG SC ×2 (05:49→17:00)
[2025-10-15 05:52] LABS: INR 1.64; PT 19.6 Sec (11.4-14.6)
[2025-10-15 05:59] LABS: Blood Urea Nitrogen 36 mg/dl (9-20); Calcium 8.5 mg/dl (8.4-10.2); Carbon Dioxide 19 mmol/L (22-30); Chloride 114 mmol/L (98-107); Estimated Creatinine Clearance 42 ml/min; Glucose 100 mg/dl (70-99); Potassium 4.1 mmol/L (3.5-5.1); Sodium 137 mmol/L (135-145); eGFR 48.95
[2025-10-15] MEDS: PROTONIX 40 MG PO (07:50)
[2025-10-15] MEDS: APRESOLINE 10 MG IV (07:50)
[2025-10-15] MEDS: APRESOLINE 20 MG PO (07:50)
[2025-10-15] MEDS: TOPROL XL 50 MG PO (07:50)
[2025-10-15] MEDS: DESENEX/MITRAZOL/ZEASORB 1 APPLIC TOPICAL ×2 (07:55→19:27)
[2025-10-15] MEDS: AVAPRO 150 MG PO ×2 (08:53→19:24)
--- NOTE | 2025-10-15 10:30 | W.PN.ID1 ---
Date of Service
Date of Service: October 15, 2025
Today's Communication
- c/w ceftriaxone 2 gm IV q24 hours, 10/10-10/23
- midline
- follow up with PCP
Assessment / Plan
UTI
Right Renal Bleed
H/o prostate cancer with neurogenic bladder
chronic incontinence
chronic hydronephrosis
MAHOGANY - improving
H/o colonization with ESBL E coli
Reported allergies to augmentin and sulfa - both rash
- urine culture 100 K E coli
- blood cultures x2 are in progress
- QTc 444
- c/w ceftriaxone 2 gm IV q24 hours, 10/10-10/23
- midline
- follow up with PCP
Chief Complaint
-: UTI
Subjective / Review of Systems
afebrile
bp stable
tolerating current therapies
abdominal pain has resolved
Vital Signs / Physical Exam
Vital Signs
Vital Signs
Temp Pulse Resp BP Pulse Ox
98.4 F 118 17 149/95 98
10/15/25 07:00 10/15/25 08:53 10/15/25 07:00 10/15/25 08:53 10/15/25 07:00
Physical Exam
Constitutional: No Acute Distress
Cardiovascular: Regular Rate and S1/S2; Negative Murmur or Rub
Pulmonary: Clear and Symmetric; Negative Wheezes or Rales
Gastrointestinal: Soft, Non Tender, Non Distended and Normal Bowel Sounds
Skin: Warm and Dry; Negative Rash or Jaundice
Lines: Other (midline)
Objective Data
Lab Data
Lab Results
10/15/25 05:13
10/15/25 05:13
PT 19.6 Sec (11.4-14.6) H 10/15/25 05:13
INR 1.64 10/15/25 05:13
APTT 37.5 Sec (23.4-35.0) H 10/09/25 16:47
Estimated Creat Clear 42 ml/min 10/15/25 05:13
Lactic Acid 1.1 mmol/L (0.7-2.0) 10/12/25 10:56
Total Bilirubin 1.0 mg/dl (0.2-1.3) 10/09/25 15:53
AST 48 U/L (17-59) 10/09/25 15:53
ALT 36 U/L (0-50) 10/09/25 15:53
Alkaline Phosphatase 108 U/L (38-126) 10/09/25 15:53
Most recent labs reviewed.
Micro Results:
10/09/25 15:53 Blood Culture - Final
Blood/Venous No Growth - Final Report
10/09/25 15:53 Blood Culture - Final
Blood/Venous No Growth - Final Report
10/09/25 16:38 Urine Culture - Final
Urine Escherichia coli
--- NOTE | 2025-10-15 11:05 | W.PN.HOSP.TC ---
Today's Communication/Plan
-
repeat vitals mid-afternoon and reassess for additional BB
Assessment / Plan
Assessment / Plan
Assessment:
Acute blood loss anemia with hematuria
- CT with right hydronephrosis with hemorrhage
- s/p 2 units PRBC
- appreciate Urology input; will need OP MRI with OP Urology f/u
sepsis (UTI/MAHOGANY) POA 2/2 complicated UTI with E coli
- Continue Rocephin per ID via midline through 10/23/24
- appreciate ID inputs
generalized weakness due to above
- PT/OT - family wants SNF. CM notified
MAHOGANY
Lactic acidosis
- improving with IVF
- hold Nephrotoxins
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
Hx of antiphospholipid antibody syndrome
- continue Coumadin; bridge with Lovenox per Hematology. INR 1.64 today
GERD
- continue PPI
Essential HTN
- continue BB; may need further titrations
- resume ARB and stop low dose Hydralazine (no effect seen with BP, likely causing reflex tachycardia)
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
- chronic ambulatory dysfunction, uses wheelchair at baseline
- PT/OT - family wants SNF. CM notified
CAD with stent October 2006
- resume ASA at discharge, continue Statin
HLD
- continue statin
Prostate cancer with radical prostatectomy
Hx UTIs
- holding CYANIDE POT TENDER on Hiprex 1 g p.o. twice daily
- Currently on antibiotics per ID
cataract extraction right eye 01/12/2024, left eye 12/29/2023
Chronic would on right foot, Present CYANIDE POT TENDER
- X:ray without Osteo
DVT ppx: Lovenox/Coumadin bridge
Code: Full
Anticipated Discharge: Within 24 hours
Subjective/Interval History
-
Date of Service: October 15, 2025
resting comfortably
HR remains elevated near 120s, asymptomatic
Objective Data
-
Labs:
Laboratory Results
10/15/25
05:13
WBC 10.4
Hgb 8.7 L
Hct 26.5 L
Plt Count 254
PT 19.6 H
INR 1.64
Sodium 137
Potassium 4.1
Chloride 114 H
Carbon Dioxide 19 L
BUN 36 H
Creatinine 1.4 H
Glucose 100 H
Calcium 8.5
Vital Signs:
Vital Signs
Temp Pulse Resp BP Pulse Ox
98.4 F 118 17 149/95 98
10/15/25 07:00 10/15/25 08:53 10/15/25 07:00 10/15/25 08:53 10/15/25 07:00
I&O
10/14/25 10/15/25 10/16/25
06:59 06:59 06:59
Intake Total 1540 / 1540 920 / 920
Balance 1540 / 1540 920 / 920
Physical Exam
-
General: No Apparent Distress
HEENT: Normocephalic and Atraumatic
Cardiac: Irregular Rhythm and Tachycardic
GI: Soft and Nontender
Musculoskeletal: No Edema
Neuro: AO x 3
Psych: Calm
Data Reviewed
-
Total Time Spent with Patient (in minutes): 41
Labs: Labs Reviewed by me
--- NOTE | 2025-10-15 12:02 | CM ---
spoke with Faith at [facility]
updated - tent dc tomorrow
PT rec SNF-[place] [facility] as [facility]
referral placed in [facility]
PLAN: SNF, pending bed availability, CM to continue to follow
--- NOTE | 2025-10-15 12:17 | W.PN.URO.CBU ---
Today's Communication / Plan
-
Cleared for discharge from standpoint
Will follow up as outpatient to schedule repeat imaging and discuss repeat UDS
Assessment / Plan
-
Right renal bleed - etiology uncertain at this time
Prostate cancer s/p RPP and subsequent EBRT
Chronic hydronephrosis and renal insufficiency
UTI
NGB and incontinence
Clinically doing well.
No evidence of active renal bleeding - H/H stabilized.
Cr stabilized.
Diagnosis
-
Date of Service: October 15, 2025
-
Patient Diagnosis:
Right renal bleed
Prostate cancer
Chronic hydronephrosis and renal insufficiency
UTI: E. coli
NGB and incontinence
Subjective
-
Feeling better each day
Voiding volitionally w/o dysuria or gross hematuria
Objective
-
Vital Signs
Temp Pulse Resp BP Pulse Ox
98.1 F 124 18 139/85 98
10/15/25 11:26 10/15/25 11:26 10/15/25 11:26 10/15/25 11:26 10/15/25 11:26
Intake and Output
10/14/25 10/15/25 10/16/25
06:59 06:59 06:59
Intake Total 1540 / 1540 920 / 920
Balance 1540 / 1540 920 / 920
Intake:
Oral fluids 1040 / 1040 920 / 920
IV fluids (Total) 500 / 500
Other:
How many times incontinent 2 2
SATURATED amount urine
Laboratory Results
10/15/25 05:13
10/15/25 05:13
Review of Systems
-
Constitutional: Fatigue
Respiratory: No Symptoms
Cardiac: No Symptoms
Abdomen/GI: No Symptoms
Physical Exam
-
General - well nourished, no acute distress
Abdomen - soft, non-tender, no CVAT
Genitalia - normal
Skin - warm & dry with no rash
[2025-10-15] MEDS: STERILE WATER FOR INJECTION 20 ML IV (13:50)
[2025-10-15] MEDS: TOPROL XL 25 MG PO (13:50)
[2025-10-15] MEDS: ROCEPHIN 2000 MG IV (13:52)
[2025-10-15] MEDS: COUMADIN 5 MG PO (17:01)
[2025-10-15] MEDS: LIPITOR 40 MG PO (21:34)
[2025-10-16 01:47] LABS: Beta-2-Glycoprotein I Ab. IgA <10 SAU (<=20); Beta-2-Glycoprotein I Ab. IgG <10 SGU (<=20); Beta-2-Glycoprotein I Ab. IgM <10 SMU (<=20)
[2025-10-16 03:30] VITALS: BP 169/101
[2025-10-16 03:32] VITALS: BP 160/92
[2025-10-16] MEDS: LOPRESSOR 5 MG IV (03:40)
[2025-10-16] MEDS: LOVENOX 90 MG SC (05:39)
[2025-10-16 05:42] LABS: Hematocrit 25.0 % (39.0-52.0); Hemoglobin 8.1 g/dL (13.0-18.0); Mean Corp Hgb Conc. 32.4 g/dL (33.0-37.0); Mean Corpuscular Volume 83.1 fL (80.0-94.0); Platelet Count 266 10^3/uL (130-400); Red Cell Dist. Width 16.5 % (11.5-14.5)
[2025-10-16 06:01] LABS: INR 2.51; PT 27.3 Sec (11.4-14.6)
[2025-10-16 06:05] LABS: Blood Urea Nitrogen 36 mg/dl (9-20); Calcium 8.2 mg/dl (8.4-10.2); Carbon Dioxide 18 mmol/L (22-30); Chloride 112 mmol/L (98-107); Estimated Creatinine Clearance 39 ml/min; Glucose 89 mg/dl (70-99); Potassium 4.2 mmol/L (3.5-5.1); Sodium 136 mmol/L (135-145); eGFR 45.06
[2025-10-16] MEDS: TOPROL XL 75 MG PO (07:44)
[2025-10-16] MEDS: AVAPRO 150 MG PO (07:44)
[2025-10-16] MEDS: PROTONIX 40 MG PO (07:44)
[2025-10-16] MEDS: DESENEX/MITRAZOL/ZEASORB 1 APPLIC TOPICAL (07:46)
[2025-10-16 08:06] VITALS: BP 150/95
--- NOTE | 2025-10-16 08:57 | CON.CAR ---
Addendum entered and electronically signed by Evan Stone MD 10/16/25 10:16:
I saw and evaluated the patient, and I provided the substantive portion of the medical decision making.
I reviewed and agree with the note by Ms Voss and it accurately reflects our care.
I personally performed the medical decision making of the this encounter and my assessment and plan is below:
85 y/o male (patient of Dr. Ramesh) with CAD with hx stenting (LAD BMS 2006), mildly dilated aortic root, mild to moderate mitral regurgitation, hypertension, spinal infarct with paraplegia, retinal vein occlusion, antiphospholipid antibody
syndrome on warfarin, and persistent (likely permanent at this point) AFIB. He presented with hematuria and was seen to have right hydronephrosis with hemorrhage.
A-fib RVR likely secondary to UTI as well as hydronephrosis with hemorrhage.
- Increase metoprolol to 100 daily; likely to become better controlled with continued recovery.
- We will follow-up as outpatient
- INR followed by hem/onc
Okay to discharge from cardiology perspective
Original Note:
Consultation
Consultation Request
Date/Time Consultation Requested: 10/15/252112
Date/Time Consultation Performed: 10/16/25 0857
Requesting Provider: Dr. Rodney
Performing Provider: Faith CODY for Dr. Stone
Reason for Consultation: AFIB
Medical History
-
Chief Complaint: hematuria
History of Present Illness:
85 y/o male (patient of Dr. Ramesh) with CAD with hx stenting (LAD BMS 2006), mildly dilated aortic root, mild to moderate mitral regurgitation, hypertension, spinal infarct with paraplegia, retinal vein occlusion, antiphospholipid antibody
syndrome on warfarin, and persistent (likely permanent at this point) AFIB. He presented with hematuria and was seen to have right hydronephrosis with hemorrhage. He required PRBC's. He was seen by urology. Warfarin briefly held- heme on the case
and recommended Lovenox bridge. His INR is back in range today. Also with sepsis/UTI being treated with ABX. MAHOGANY was also noted and has improved. We are consulted since HR has been elevated despite increase in BB dosing. He is asymptomatic- denies
any CP, SOB, or palpitations.
Past Medical History
Past Medical History: Arrhythmias, CAD, HTN and Other (as above)
Allergies / Home Medications
Allergy/AdvReac Type Severity Reaction Status Date / Time
amoxicillin (From Augmentin) Allergy Rash Verified 10/12/25 12:55
clavulanic acid (From Allergy Rash Verified 10/12/25 12:55
Augmentin)
Sulfa (Sulfonamide Allergy Rash Verified 01/31/24 10:50
Antibiotics)
�Medication �Instructions �Recorded �Confirmed �Type
aspirin 81 mg tablet,delayed 81 mg PO DAILY Blood Clot 09/23/12 10/09/25 History
release Prevention/Tx
atorvastatin 40 mg tablet 40 mg PO HS High Cholesterol 08/20/20 10/09/25 History
irbesartan 150 mg tablet 150 mg PO BID High Cholesterol 08/26/23 10/09/25 History
methenamine hippurate 1 gram tablet 1 g PO BID Prevent UTI 08/26/23 10/09/25 History
metoprolol succinate 25 mg 25 mg PO DAILY Blood Pressure 08/26/23 10/09/25 History
tablet,extended release 24 hr
omeprazole 20 mg capsule,delayed 20 mg PO DAILY GERD 08/26/23 10/09/25 History
release
therapeutic multivitamin 1 tab PO DAILY Supplement 08/26/23 10/09/25 History
Pepcid AC 1 tab PO DAILY Gastrointestinal 01/31/24 10/09/25 History
Issue
hydralazine 10 mg tablet 10 mg PO BID #60 tabs 02/05/24 10/09/25 Rx
warfarin 5 mg tablet 5 mg PO DAILY Blood Clot 10/09/25 10/09/25 History
Prevention/Tx
Review of Systems
-
History Source: Patient
All other systems: Negative unless noted
: Other (hematuria)
Physical Exam
Vital Signs
Temp Pulse Resp BP Pulse Ox
97.6 F 102 18 150/95 96
10/16/25 08:06 10/16/25 08:06 10/16/25 08:06 10/16/25 08:06 10/16/25 08:06
Lab Results
10/16/25 05:05
10/16/25 05:05
Physical Exam
General: Well Developed, Well Nourished and No Apparent Distress
HEENT: Normocephalic and Anicteric
Cardiac: Irregular Rhythm and Murmur (II/ systolic murmur )
Musculoskeletal: No Edema
Skin: Warm and Dry
Neuro: AO x 3
Psych: Calm
Impression / Plan
-
Hematuria:
-right hydro with hemorrhage, s/p PRBC's
-resolved, urology on the case
Sepsis/UTI:
-improved s/p ABX
AFIB, previously persistent, suspect permanent now:
-in setting of acute illness. No symptoms. Increase metoprolol to 100 mg daily. 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
-on warfarin for antiphospholipid syndrome. INR in range today.
CAD with hx stenting:
-stable without CP
Hx antiphospholipid syndrome:
-hx spinal infarct
-on warfarin, followed by heme
HTN:
-elevated as inpatient
-monitor with medication adjustments
-close follow-up scheduled as noted
Data Reviewed
-
EKG: Tracing Personally Visualized and interpreted (AFIB RVR 127 BPM)
Medical Tests (Nuc Med, Echo etc): Other (echo as noted)
Labs: Labs Reviewed by me
--- NOTE | 2025-10-16 09:31 | W.PN.HOSP.TC ---
Today's Communication/Plan
-
follow cardiology recs for uncontrolled A. Fib
Assessment / Plan
Assessment / Plan
Assessment:
Acute blood loss anemia with hematuria
- CT with right hydronephrosis with hemorrhage
- s/p 2 units PRBC
- appreciate Urology input; will need OP MRI with OP Urology f/u
sepsis (UTI/MAHOGANY) POA 2/2 complicated UTI with E coli
- Continue Rocephin per ID via midline through 10/23/24
- appreciate ID inputs
generalized weakness due to above
- PT/OT - family wants SNF. CM notified
MAHOGANY
Lactic acidosis
- improving with IVF
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
Parox A-fib on Coumadin [employer]
Hx of antiphospholipid antibody syndrome
- continue Coumadin, s/p Lovenox bridge. INR is 2.51
GERD
- continue PPI
Essential HTN
- continue BB; titrated from 25mg to 75mg over 48 hours with suboptimal HR control; will consulted Cardiology
- continue ARB and stop low dose Hydralazine (no effect seen with BP, likely causing reflex tachycardia)
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
- chronic ambulatory dysfunction, uses wheelchair at baseline
- PT/OT - family wants SNF. CM notified
CAD with stent October 2006
- resume ASA at discharge, continue Statin
HLD
- continue statin
Prostate cancer with radical prostatectomy
Hx UTIs
- holding [employer] on Hiprex 1 g p.o. twice daily
- Currently on antibiotics per ID
cataract extraction right eye 01/12/2024, left eye 12/29/2023
Chronic would on right foot, Present [employer]
- X:ray without Osteo
DVT ppx: Coumadin
Code: Full
Anticipated Discharge: Within 24 hours
Subjective/Interval History
-
Date of Service: October 16, 2025
HRs at times still in 110-120s in afternoon despite Metoprolol titrations
required IV Lopressor last evening
Cardiology consulted
denies any chest pain or SOB
Objective Data
-
Labs:
Laboratory Results
10/16/25
05:05
WBC 11.4 H
Hgb 8.1 L
Hct 25.0 L
Plt Count 266
PT 27.3 H
INR 2.51
Sodium 136
Potassium 4.2
Chloride 112 H
Carbon Dioxide 18 L
BUN 36 H
Creatinine 1.5 H
Glucose 89
Calcium 8.2 L
Vital Signs:
Vital Signs
Temp Pulse Resp BP Pulse Ox
97.6 F 102 18 150/95 96
10/16/25 08:06 10/16/25 08:06 10/16/25 08:06 10/16/25 08:06 10/16/25 08:06
I&O
10/15/25 10/16/25 10/17/25
06:59 06:59 06:59
Intake Total 920 / 920 960 / 960
Output Total 1290 / 1290
Balance 920 / 920 -330 / -330
Physical Exam
-
General: No Apparent Distress
HEENT: Normocephalic and Atraumatic
Respiratory: Negative Wheezes
Cardiac: Irregular Rhythm and Tachycardic
GI: Soft and Nontender
Neuro: AO x 3
Psych: Calm
Data Reviewed
-
Total Time Spent with Patient (in minutes): 44
Labs: Labs Reviewed by me
[2025-10-16] MEDS: TOPROL XL 25 MG PO (09:56)
--- NOTE | 2025-10-16 10:09 | W.DCSUMMARY ---
Discharge Summary
Discharge Data
Date of Admission: 10/09/25
Date of Discharge: 10/16/25
-
Pending Results: No
Hospital Course
85 y/o M, hx of Paroxysmal atrial fibrillation, antiphospholipid antibody syndrome on Coumadin, GERD, Essential hypertension, h/o spinal artery occlusion with cerebrovascular and lower extremity paralysis, CAD s/p stent October 2006, Hyperlipidemia,
Prostate cancer with radical prostatectomy, h/o recurrent urinary tract infections, cataract extraction right eye 01/12/2024, left eye 12/29/2023 presented to ER on 10/09 with weakness and hematuria for 3 days. He also reported right lower abdominal
pain that has been constant and distended abdomen. CT imaging revealed right hydronephrosis with renal hemorrhage with findings of sepsis from E. coli UTI. Urology recommended initially holding Coumadin and transfusing patient with 2 units of PRBCs.
They did not have an etiology for the bleeding and therefore will follow up with patient in office to perform repeat CT or MRI imaging.
ID consulted and placed patient on Rocephin via Midline until 10/23/24.
Patient also had MAHOGANY which improved with IVF.
Patients Coumadin was resumed and bridged with Lovenox per Hematology. He will have an INR check at SNF. DC INR was 2.51.
Patient also had elevated BP And rapid A. Fib requiring titration of Toprol from 25mg to 100mg and stopping Hydralazine.
He was seen by PT/OT, recommended for SNF and discharged to SNF on 10/16/25.
Discharge Plan
-
Patient Disposition: Senior Care/SNF
Discharge Diagnosis/Procedures: UTI, sepsis, right hydronephrosis with hemorrhage (hematuria) resulting in Acute blood loss anemia requiring 2 units PRBCs. MAHOGANY
Condition: Fair
Diet: Low Cholesterol
Activity: As tolerated
Blood Work: CBC and BMP in 1 week. INR check 10/18/25Tuesday (goal INR 2-3)
Other Services: PT and OT
Referrals:
Dennis Ramesh MD [Active, Cardiology] - 10/21/25 11:00 am
Harsh Becker MD [Family Provider, Internal Medicine]
Vincent Mills MD [Active, Urology]
Referral Note: Please call [facility] Urology to schedule a follow up visit with Dr. Mills within 3-4 weeks of your discharge.
Prescriptions:
New
ceftriaxone 2 gram Recon Soln
2,000 mg IV Q24H Qty: 7 0RF
Rx Instructions:
last dose 10/23/25
metoprolol succinate 100 mg Tablet Extended Release 24 Hr
100 mg PO DAILY Qty: 30 0RF
Continued
aspirin 81 MG tablet,delayed release (DR/EC)
81 mg PO DAILY
atorvastatin 40 MG tablet
40 mg PO HS
therapeutic multivitamin Tablet
1 tab PO DAILY
omeprazole 20 mg Capsule,Delayed Release(Dr/Ec)
20 mg PO DAILY
irbesartan 150 mg Tablet
150 mg PO BID
Pepcid AC
1 tab PO DAILY
Patient Comments:
01/31/2024, pt. unsure of strength.
warfarin 5 mg Tablet
5 mg PO DAILY
Held
methenamine hippurate 1 gram Tablet
1 g PO BID
Hold Instructions: resume after Ceftriaxone treatment completes
Discontinued
metoprolol succinate 25 mg Tablet Extended Release 24 Hr
25 mg PO DAILY
hydralazine 10 mg Tablet
10 mg PO BID Qty: 60 0RF
Discharge Orders:
Discharge Patient (As Directed); Ordered 10/16/25
Ordered By: Matt Rodney
Discharge Date and Time
Print Language: KYRGYZ
[2025-10-16 10:56] VITALS: BP 153/99
--- NOTE | 2025-10-16 11:12 | CM ---
Addendum entered by Nova Thibodeaux 10/16/25 11:42:
3pm transport -notified Faith
IMM signed. in chart
Original Note:
patient for discharge today [facility]
faxed Faith at [facility] information & IV abx script [phone]
IMM explained
PLAN: [facility] SNF
Report #: [phone]
Fax #: [phone]
transportation forms on chart
--- NOTE | 2025-10-16 11:34 | W.PN.ID1 ---
Date of Service
Date of Service: October 16, 2025
Today's Communication
- c/w ceftriaxone 2 gm IV q24 hours, 10/10-10/23
- midline
- follow up with PCP
Assessment / Plan
UTI
Right Renal Bleed
H/o prostate cancer with neurogenic bladder
chronic incontinence
chronic hydronephrosis
MAHOGANY - improving
H/o colonization with ESBL E coli
Reported allergies to augmentin and sulfa - both rash
- urine culture 100 K E coli
- blood cultures x2 are in progress
- QTc 444
- c/w ceftriaxone 2 gm IV q24 hours, 10/10-10/23 - script provided to patient case manager
- midline
- follow up with PCP
Chief Complaint
-: UTI
Subjective / Review of Systems
afebrile
bp stable
tolerating current therapy
Vital Signs / Physical Exam
Vital Signs
Vital Signs
Temp Pulse Resp BP Pulse Ox
97.6 F 111 17 153/99 96
10/16/25 10:56 10/16/25 10:56 10/16/25 10:56 10/16/25 10:56 10/16/25 10:56
Physical Exam
Constitutional: No Acute Distress
Cardiovascular: Regular Rate and S1/S2; Negative Murmur or Rub
Pulmonary: Clear and Symmetric; Negative Wheezes or Rales
Gastrointestinal: Soft, Non Tender, Non Distended and Normal Bowel Sounds
Skin: Warm and Dry; Negative Rash or Jaundice
Objective Data
Lab Data
Lab Results
10/16/25 05:05
10/16/25 05:05
PT 27.3 Sec (11.4-14.6) H 10/16/25 05:05
INR 2.51 10/16/25 05:05
APTT 37.5 Sec (23.4-35.0) H 10/09/25 16:47
Estimated Creat Clear 39 ml/min 10/16/25 05:05
Lactic Acid 1.1 mmol/L (0.7-2.0) 10/12/25 10:56
Total Bilirubin 1.0 mg/dl (0.2-1.3) 10/09/25 15:53
AST 48 U/L (17-59) 10/09/25 15:53
ALT 36 U/L (0-50) 10/09/25 15:53
Alkaline Phosphatase 108 U/L (38-126) 10/09/25 15:53
Most recent labs reviewed.
Micro Results:
10/09/25 15:53 Blood Culture - Final
Blood/Venous No Growth - Final Report
10/09/25 15:53 Blood Culture - Final
Blood/Venous No Growth - Final Report
10/09/25 16:38 Urine Culture - Final
Urine Escherichia coli
--- NOTE | 2025-10-16 12:10 | W.PN.URO.CBU ---
Today's Communication / Plan
-
Cleared for discharge from standpoint
Will re-image abdomen and repeat urodynamics in early 2025
Assessment / Plan
-
Right renal bleed - etiology uncertain at this time
Prostate cancer s/p RPP and subsequent EBRT
Chronic hydronephrosis and renal insufficiency
UTI
NGB and incontinence
Clinically doing well.
No evidence of active renal bleeding - H/H stabilized.
Cr stabilized.
Diagnosis
-
Date of Service: October 16, 2025
-
Patient Diagnosis:
Right renal bleed
Prostate cancer
Chronic hydronephrosis and renal insufficiency
UTI: E. coli
NGB and incontinence
Subjective
-
Feels well
No dysuria
Objective
-
Vital Signs
Temp Pulse Resp BP Pulse Ox
97.6 F 111 17 153/99 96
10/16/25 10:56 10/16/25 10:56 10/16/25 10:56 10/16/25 10:56 10/16/25 10:56
Intake and Output
10/15/25 10/16/25 10/17/25
06:59 06:59 06:59
Intake Total 920 / 920 960 / 960
Output Total 1290 / 1290
Balance 920 / 920 -330 / -330
Intake:
Oral fluids 920 / 920 960 / 960
Output:
Urine, Voided 1290 / 1290
Other:
How many times incontinent 2
SATURATED amount urine
Laboratory Results
10/16/25 05:05
10/16/25 05:05
Review of Systems
-
Constitutional: Fatigue
Respiratory: No Symptoms
Cardiac: No Symptoms
Abdomen/GI: No Symptoms
: No Symptoms
Physical Exam
-
General - no acute distress
Abdomen - soft, non-tender
Genitalia - normal
[2025-10-16] MEDS: STERILE WATER FOR INJECTION 20 ML IV (13:13)
[2025-10-16] MEDS: ROCEPHIN 2000 MG IV (13:13)
[2025-10-16 15:02] VITALS: BP 151/100
[2025-10-17 00:41] LABS: Phosphatidylserine Ab, IgA 6 APS (0-19); Phosphatidylserine Ab, IgG 30 GPS (0-15); Phosphatidylserine Ab, IgM 1 MPS (0-21)
== END 2025-10-16 15:11 | DRG 872 ==
LOC: 3 WEST ACU 18:07
PROVIDERS: Emergency Medicine; Internal Medicine; ADMITTING PHYSICIAN Internal Medicine; ATTENDING PHYSICIAN Internal Medicine; CONSULT PHYSICIAN Internal Medicine Critical Care Medicine; CONSULT PHYSICIAN Internal Medicine Hematology & Oncology; CONSULT PHYSICIAN Specialist; CONSULT PHYSICIAN Student in an Organized Health Care Education/Training Program; EMERGENCY PHYSICIAN Emergency Medicine; FAMILY PHYSICIAN Internal Medicine; OTHER PHYSICIAN Internal Medicine Cardiovascular Disease
DX: A41.51 Sepsis due to Escherichia coli [E. coli] (principal); N13.6 Pyonephrosis; N17.9 Acute kidney failure, unspecified; D62 Acute posthemorrhagic anemia; G82.20 Paraplegia, unspecified; D68.61 Antiphospholipid syndrome; J98.11 Atelectasis; N28.89 Other specified disorders of kidney and ureter; R31.0 Gross hematuria; Z85.46 Personal history of malignant neoplasm of prostate; K21.9 Gastro-esophageal reflux disease without esophagitis; Z87.440 Personal history of urinary (tract) infections; E78.00 Pure hypercholesterolemia, unspecified; I48.0 Paroxysmal atrial fibrillation; I25.10 Atherosclerotic heart disease of native coronary artery without angina pectoris; N18.9 Chronic kidney disease, unspecified; I12.9 Hypertensive chronic kidney disease with stage 1 through stage 4 chronic kidney disease, or unspecified chronic kidney disease; Z82.3 Family history of stroke; Z90.79 Acquired absence of other genital organ(s); Z95.5 Presence of coronary angioplasty implant and graft; N31.9 Neuromuscular dysfunction of bladder, unspecified; Z79.01 Long term (current) use of anticoagulants; Z79.82 Long term (current) use of aspirin; Z79.899 Other long term (current) drug therapy; Z86.19 Personal history of other infectious and parasitic diseases; Z86.73 Personal history of transient ischemic attack (TIA), and cerebral infarction without residual deficits; Z87.442 Personal history of urinary calculi; Z88.0 Allergy status to penicillin; Z88.2 Allergy status to sulfonamides; L89.316 Pressure-induced deep tissue damage of right buttock
CPT/HCPCS: 36600; 73620; 74176; 80048; 80053; 81003; 81015; 82607; 82728; 82805; 83540; 83550; 83605; 83735; 85014; 85018; 85025; 85027; 85610; 85613; 85730; 86146; 86147; 86148; 86850; 86900; 86901; 86920; 87040; 87077; 87086; 87186; 93005; 96360; 97163; 97167; 97530; 97535; 99291; J2185; P9016